=== PATIENT | male | born 1995 | race Caucasian/White ===

== ENCOUNTER 2017-06-18 15:14 | Emergency (ER) | payer SELFPAY ==
[2017-06-18] MEDS ORDERED: IBUPROFEN 200 MG TAB PO ONE (17:25)
[2017-06-18] MEDS ORDERED: HYDROCODONE/APAP 7.5/325 MG TAB ONE (17:26)
[2017-06-18 18:21] LABS: Urine Blood NEGATIVE (NEG); Urine Glucose NEGATIVE (NEG); Urine Protein TRACE (NEG); Urine Specific Gravity 1.025 (1.005-1.030)
--- NOTE | 2017-06-18 18:21 | EDPHYS ---
Physician Documentation [facility] Name: He Schmitz Age: 22 yrs Sex: Male : 1995 Arrival Date: 06/18/2017 Time: 15:17 Bed 10 Private MD: ED Physician Lonnie Morris HPI: 06/18 17:22 This 22 yrs old Male presents to ER via Ambulatory with complaints of Back wendy Injury. 17:22 This 22 yrs old Male presents to ER via Ambulatory with complaints of Back wendy Injury. 17:22 This 22 yrs old Male presents to ER via Ambulatory with complaints of Back wendy Injury. 17:22 The patient presents with pain that is acute. The symptoms are located in the low back. wendy Onset: The symptoms/episode began/occurred suddenly. The pain does not radiate. Associated signs and symptoms: The patient has no apparent associated signs or symptoms. The problem was sustained when bending over. Modifying factors: The patient symptoms are alleviated by nothing, the patient symptoms are aggravated by any movement, bending. Severity of symptoms: At their worst the symptoms were mild, moderate, in the emergency department the symptoms are unchanged. Historical: - Allergies: 15:29 No Known Allergies; aj - Home Meds: 15:29 None [Active]; aj - PMHx: 15:29 None; aj - PSHx: 15:29 None; aj - Immunization history:: Adult Immunizations up to date. - Social history:: Smoking status: Patient/guardian denies using tobacco. - Family history:: not pertinent. ROS: 17:22 Constitutional: Negative for fever, chills, and weight loss, Eyes: Negative for injury, wendy pain, redness, and discharge, ENT: Negative for injury, pain, and discharge, Neck: Negative for injury, pain, and swelling, Cardiovascular: Negative for chest pain, palpitations, and edema, Respiratory: Negative for shortness of breath, cough, wheezing, and pleuritic chest pain, Abdomen/GI: Negative for abdominal pain, nausea, vomiting, diarrhea, and constipation, : Negative for injury, bleeding, discharge, and swelling, MS/Extremity: Negative for injury and deformity, Skin: Negative for injury, rash, and discoloration, Neuro: Negative for headache, weakness, numbness, tingling, and seizure, Psych: Negative for depression, anxiety, suicide ideation, homicidal ideation, and hallucinations, Allergy/Immunology: Negative for hives, rash, and allergies, Endocrine: Negative for neck swelling, polydipsia, polyuria, polyphagia, and marked weight changes, Hematologic/Lymphatic: Negative for swollen nodes, abnormal bleeding, and unusual bruising. 17:22 Back: Positive for decreased range of motion, pain at rest, pain with movement, of the lumbar area. Exam: 17:22 Constitutional: This is a well developed, well nourished patient who is awake, alert, wendy and in no acute distress. Head/Face: Normocephalic, atraumatic. Eyes: Pupils equal round and reactive to light, extra-ocular motions intact. Lids and lashes normal. Conjunctiva and sclera are non-icteric and not injected. Cornea within normal limits. Periorbital areas with no swelling, redness, or edema. ENT: Nares patent. No nasal discharge, no septal abnormalities noted. Tympanic membranes are normal and external auditory canals are clear. Oropharynx with no redness, swelling, or masses, exudates, or evidence of obstruction, uvula midline. Mucous membranes moist. Neck: Trachea midline, no thyromegaly or masses palpated, and no cervical lymphadenopathy. Supple, full range of motion without nuchal rigidity, or vertebral point tenderness. No Meningismus. Chest/axilla: Normal chest wall appearance and motion. Nontender with no deformity. No lesions are appreciated. Cardiovascular: Regular rate and rhythm with a normal S1 and S2. No gallops, murmurs, or rubs. Normal PMI, no JVD. No pulse deficits. Respiratory: Lungs have equal breath sounds bilaterally, clear to auscultation and percussion. No rales, rhonchi or wheezes noted. No increased work of breathing, no retractions or nasal flaring. Abdomen/GI: Soft, non-tender, with normal bowel sounds. No distension or tympany. No guarding or rebound. No evidence of tenderness throughout. Male : Normal genitalia with no discharge or lesions. Skin: Warm, dry with normal turgor. Normal color with no rashes, no lesions, and no evidence of cellulitis. MS/ Extremity: Pulses equal, no cyanosis. Neurovascular intact. Full, normal range of motion. Neuro: Awake and alert, GCS 15, oriented to person, place, time, and situation. Cranial nerves II-XII grossly intact. Motor strength 5/5 in all extremities. Sensory grossly intact. Cerebellar exam normal. Normal gait. Psych: Awake, alert, with orientation to person, place and time. Behavior, mood, and affect are within normal limits. 17:22 Back: pain, ROM is painful, normal spinal alignment noted, CVA tenderness, is absent, muscle spasm, is not present. Vital Signs: 15:29 BP 121 / 85; Pulse 85; Resp 17; Temp 98.3; Pulse Ox 98% on R/A; Weight 114.76 kg; aj Height 6 ft. 2 in. (187.96 cm); Pain 3/10; 18:25 BP 127 / 72; Pulse 70; Resp 16; Pulse Ox 97% ; Pain 2/10; mb3 15:29 Body Mass Index 32.48 (114.76 kg, 187.96 cm) aj MDM: 16:44 Patient medically screened. [facility] 17:25 Data reviewed: vital signs, nurses notes, lab test result(s), radiologic studies, plain [facility] films. 06/18 18:20 Order name: Urine Dipstick--Ancillary (enter results) 06/18 17:22 Order name: Lumbar Spine (3 Views) XRAY [facility] 06/18 17:22 Order name: Urine Dipstick-Ancillary (obtain specimen); Complete Time: 18:21 [facility] Administered Medications: 17:25 Drug: Motrin 600 mg Route: PO; mb3 18:21 Follow up: Response: No adverse reaction; Pain is decreased mb3 17:25 Drug: [place] (7.5 mg-325 mg) 1 tabs Route: PO; mb3 18:18 Follow up: Response: No adverse reaction; Pain is decreased mb3 Disposition: 06/18/17 18:11 Discharged to Home. Impression: Low back pain - l5 _s1 pars defect. - Condition is Stable. - Discharge Instructions: Back Pain, Adult, Musculoskeletal Pain, Back Injury Prevention, Jrcn-is-Icro, Back Pain, Adult, [id number]. - Prescriptions for Ibuprofen 600 mg Oral Tablet - take 1 tablet by ORAL route every 8 hours As needed take with food; 21 tablet. Tylenol- Codeine #3 300-30 mg Oral Tablet - take 2 tablet by ORAL route every 6 hours As needed; 30 tablet. Skelaxin 800 mg Oral Tablet - take 1 tablet by ORAL route every 6 hours As needed; 20 tablet. - Medication Reconciliation Form, Thank You Letter, Antibiotic Education, Prescription Opioid Use form. - Follow up: Private Physician; When: 2 - 3 days; Reason: Recheck today's complaints, Continuance of care, Re-evaluation by your physician. Follow up: Dylon Hawthorne MD; When: 2 - 3 days; Reason: Recheck today's complaints, Re-evaluation by your physician. - Problem is new. - Symptoms have improved. Signatures: Dispatcher [employer] EDChristy Whelan RN RN aj Anderson, Corey, MD MD cha Barnett, Mark, RN RN mb3 Corrections: (The following items were deleted from the chart) 18:12 18:11 06/18/2017 18:11 Discharged to Home. Impression: Low back pain - l5 _s1 pars wendy defect. Condition is Stable. Discharge Instructions: Back Pain, Adult, Musculoskeletal Pain, Back Injury Prevention, Vsxz-cn-Ilfz, Back Pain, Adult, Vnji-mu-Jbjw. Prescriptions for Ibuprofen 600 mg Oral Tablet - take 1 tablet by ORAL route every 8 hours As needed take with food; 21 tablet, Tylenol-Codeine #3 300-30 mg Oral Tablet - take 2 tablet by ORAL route every 6 hours As needed; 30 tablet, Skelaxin 800 mg Oral Tablet - take 1 tablet by ORAL route every 6 hours As needed; 20 tablet. and Forms are Medication Reconciliation Form, Thank You Letter, Antibiotic Education, Prescription Opioid Use. Follow up: Private Physician; When: 2 - 3 days; Reason: Recheck today's complaints, Continuance of care, Re-evaluation by your physician. Problem is new. Symptoms have improved. wendy 18:25 18:12 06/18/2017 18:11 Discharged to Home. Impression: Low back pain - l5 _s1 pars mb3 defect. Condition is Stable. Discharge Instructions: Back Pain, Adult, Musculoskeletal Pain, Back Injury Prevention, Kqax-da-Xebt, Back Pain, Adult, Pxfg-re-Bmzh. Prescriptions for Ibuprofen 600 mg Oral Tablet - take 1 tablet by ORAL route every 8 hours As needed take with food; 21 tablet, Tylenol-Codeine #3 300-30 mg Oral Tablet - take 2 tablet by ORAL route every 6 hours As needed; 30 tablet, Skelaxin 800 mg Oral Tablet - take 1 tablet by ORAL route every 6 hours As needed; 20 tablet. and Forms are Medication Reconciliation Form, Thank You Letter, Antibiotic Education, Prescription Opioid Use. Follow up: Private Physician; When: 2 - 3 days; Reason: Recheck today's complaints, Continuance of care, Re-evaluation by your physician. Follow up: Dylon Hawthorne; When: 2 - 3 days; Reason: Recheck today's complaints, Re-evaluation by your physician. Problem is new. Symptoms have improved. wendy
--- NOTE | 2017-06-18 18:21 | ER ---
Nurse's Notes [facility] Name: He Schmitz Age: 22 yrs Sex: Male : 1995 Arrival Date: 06/18/2017 Time: 15:17 Bed 10 Private MD: Diagnosis: Low back pain-l5 _s1 pars defect Presentation: 06/18 15:27 Presenting complaint: Patient states: Pain to low back that started today while patient aj was cleaning a table. Ambulated with steady gait to triage. Transition of care: patient was not received from another setting of care. Onset of symptoms was June 18, 2017. Initial Sepsis Screen: Does the patient meet any 2 criteria? No. Patient's initial sepsis screen is negative. Does the patient have a suspected source of infection? No. Patient's initial sepsis screen is negative. Care prior to arrival: None. 15:27 Method Of Arrival: Ambulatory 15:27 Acuity: NICOLE 4 aj Triage Assessment: 15:29 General: Appears in no apparent distress. uncomfortable, Behavior is calm, cooperative, aj appropriate for age. Pain: Complains of pain in low back area Pain currently is 3 out of 10 on a pain scale. Neuro: Level of Consciousness is awake, alert, obeys commands, Oriented to person, place, time, situation, Appropriate for age. Respiratory: Airway is patent Respiratory effort is even, unlabored, Respiratory pattern is regular, symmetrical. Derm: Skin is intact, is healthy with good turgor, Skin is pink, warm \T\ dry. normal. Historical: - Allergies: 15:29 No Known Allergies; - Home Meds: 15:29 None [Active]; - PMHx: 15:29 None; - PSHx: 15:29 None; aj - Immunization history:: Adult Immunizations up to date. - Social history:: Smoking status: Patient/guardian denies using tobacco. - Family history:: not pertinent. Screenin:23 Abuse screen: Denies threats or abuse. Nutritional screening: No deficits noted. mb3 Tuberculosis screening: No symptoms or risk factors identified. Fall Risk None identified. Assessment: 18:22 General: Appears in no apparent distress. comfortable, Behavior is calm, cooperative, mb3 appropriate for age. Pain: Complains of pain in lumbar area Pain does not radiate. Pain: Pain currently is 4 out of 10 on a pain scale. Neuro: No deficits noted. Cardiovascular: No deficits noted. Respiratory: No deficits noted. GI: No signs and/or symptoms were reported involving the gastrointestinal system. : No signs and/or symptoms were reported regarding the genitourinary system. EENT: No signs and/or symptoms were reported regarding the EENT system. Vital Signs: 15:29 BP 121 / 85; Pulse 85; Resp 17; Temp 98.3; Pulse Ox 98% on R/A; Weight 114.76 kg; aj Height 6 ft. 2 in. (187.96 cm); Pain 3/10; 18:25 BP 127 / 72; Pulse 70; Resp 16; Pulse Ox 97% ; Pain 2/10; mb3 15:29 Body Mass Index 32.48 (114.76 kg, 187.96 cm) aj ED Course: 15:17 Patient arrived in ED. rg4 15:29 Triage completed. aj 15:29 Arm band placed on left wrist. Patient placed in waiting room, Patient notified of wait aj time. 16:44 Lonnie Morris MD is Attending Physician. [facility] 17:22 Greg Peck, LUIS CARLOS is Primary Nurse. mb3 17:41 Patient moved to radiology via wheelchair. ag1 17:42 X-ray completed. Patient tolerated procedure well. ag1 17:43 Lumbar Spine (3 Views) XRAY In Process Unspecified. EDMS 18:12 Dylon Hawthorne MD is Referral Physician. wendy 18:21 Urine Dipstick--Ancillary (enter results) Sent. mb3 18:23 Patient has correct armband on for positive identification. Call light in reach. mb3 18:24 No provider procedures requiring assistance completed. Patient did not have IV access mb3 during this emergency room visit. Administered Medications: 17:25 Drug: Motrin 600 mg Route: PO; mb3 18:21 Follow up: Response: No adverse reaction; Pain is decreased mb3 17:25 Drug: [place] (7.5 mg-325 mg) 1 tabs Route: PO; mb3 18:18 Follow up: Response: No adverse reaction; Pain is decreased mb3 Outcome: 18:11 Discharge ordered by . wendy 18:24 Discharged to home ambulatory. mb3 18:24 Condition: stable 18:24 Discharge instructions given to patient, Instructed on discharge instructions, follow up and referral plans. medication usage, Demonstrated understanding of instructions, follow-up care, medications, Prescriptions given X 3. 18:25 Patient left the ED. mb3 Signatures: Dispatcher [employer] Christy Barrett, Lonnie Harrell RN, MD MD cha Gallaway, Ashley ag1 Gisselle Posada rg4 Greg Peck RN RN mb3
--- NOTE | 2017-06-18 19:51 | RAD REPORT ---
EXAM DESCRIPTION: RAD - Lumbar Spine 3 Views - 06/18/2017 5:48 pm CLINICAL HISTORY: Back pain FINDINGS: Mild anterior subluxation of L5 on S1 is seen. Spondylosis is suspected at L5 . No acute fracture is seen
== END 2017-06-18 18:25 | disposition home or self-care (01) ==
LOC: ER 15:14
DX: M54.5 Low back pain (principal); M43.07 Spondylolysis, lumbosacral region
CPT/HCPCS: 72100; 81003; 99284

== ENCOUNTER 2017-09-30 23:23 | Emergency (ER) | payer SELFPAY ==
[2017-10-01 01:49] LABS: Absolute Lymphocytes (CBC) 2.6 K/uL (0.7-4.9); Absolute Monocytes 0.8 K/uL (0.1-1.3); Absolute Neutrophil 5.7 K/uL (1.8-8.0); Basophils % 0.4 % (0-1.3); Hematocrit 42.9 % (39.6-49.0); Lymphocytes % 28.1 % (15.3-44.8); MCH 27.9 pg (27.0-35.0); MCV 83.2 fL (80-100); MPV 9.7 fL (7.6-11.3); Monocytes % 8.9 % (3.3-12.3); RBC Red Blood Cell Count 5.16 M/uL (4.33-5.43)
[2017-10-01 01:56] LABS: BUN Blood Urea Nitrogen 19 mg/dL (7-18); Bicarbonate 31 mmol/L (21-32); Glucose Level 94 mg/dL (74-106); Potassium 3.7 mmol/L (3.5-5.1); Sodium Level 140 mmol/L (136-145)
--- NOTE | 2017-10-01 02:14 | EDPHYS ---
Physician Documentation [facility] Name: He Schmitz Age: 22 yrs Sex: Male : 1995 Arrival Date: 09/30/2017 Time: 23:24 Bed 13 Private MD: ED Physician Bolivar Hernandez HPI: 10/01 02:01 This 22 yrs old Male presents to ER via Ambulatory with complaints of gs Numbness - Tongue. 02:05 The patient's problem is reported as paresthesias, tongue. Onset: The symptoms/episode gs began/occurred yesterday, at 09:00. Duration: The episodes are intermittent. The symptoms are alleviated by nothing. The symptoms are aggravated by nothing. Associated signs and symptoms: Pertinent negatives: agitation, ataxia, ams. Severity of symptoms: At their worst the symptoms were moderate in the emergency department the symptoms have improved moderately. The patient has not experienced similar symptoms in the past. Historical: - Allergies: 00:00 No Known Allergies; aa1 - Home Meds: 00:00 None [Active]; aa1 - PMHx: 00:00 Anxiety; aa1 00:01 Gout; aa1 - PSHx: 00:00 None; aa1 - Immunization history:: Adult Immunizations up to date. - Social history:: Smoking status: Patient/guardian denies using tobacco. - Ebola Screening: : No symptoms or risks identified at this time. ROS: 02:05 All other systems are negative. gs Exam: 02:05 Radiologist reports: neg gs 02:05 Head/Face: Normocephalic, atraumatic. Eyes: Pupils equal round and reactive to light, extra-ocular motions intact. Lids and lashes normal. Conjunctiva and sclera are non-icteric and not injected. Cornea within normal limits. Periorbital areas with no swelling, redness, or edema. ENT: Nares patent. No nasal discharge, no septal abnormalities noted. Tympanic membranes are normal and external auditory canals are clear. Oropharynx with no redness, swelling, or masses, exudates, or evidence of obstruction, uvula midline. Mucous membranes moist. Neck: Trachea midline, no thyromegaly or masses palpated, and no cervical lymphadenopathy. Supple, full range of motion without nuchal rigidity, or vertebral point tenderness. No Meningismus. Chest/axilla: Normal chest wall appearance and motion. Nontender with no deformity. No lesions are appreciated. Cardiovascular: Regular rate and rhythm with a normal S1 and S2. No gallops, murmurs, or rubs. Normal PMI, no JVD. No pulse deficits. Respiratory: Lungs have equal breath sounds bilaterally, clear to auscultation and percussion. No rales, rhonchi or wheezes noted. No increased work of breathing, no retractions or nasal flaring. Abdomen/GI: Soft, non-tender, with normal bowel sounds. No distension or tympany. No guarding or rebound. No evidence of tenderness throughout. Back: No spinal tenderness. No costovertebral tenderness. Full range of motion. Skin: Warm, dry with normal turgor. Normal color with no rashes, no lesions, and no evidence of cellulitis. MS/ Extremity: Pulses equal, no cyanosis. Neurovascular intact. Full, normal range of motion. 02:05 Neuro: Orientation: is normal, Mentation: is normal, Memory: is normal, Cranial nerves: CN II- XII are normal as tested, Cerebellar function: normal finger to nose testing, Motor: strength is normal, Sensation: no obvious gross deficits, pin prick testing is normal. Vital Signs: 09/30 23:31 BP 123 / 85; Pulse 72; Resp 18; Temp 98.1; Pulse Ox 98% on R/A; Weight 118.39 kg; aa1 Height 6 ft. 2 in. (187.96 cm); Pain 0/10; 10/01 00:30 BP 111 / 74; Pulse 79; Resp 16; Pulse Ox 97% on R/A; Pain 0/10; aa1 01:47 BP 109 / 70; Pulse 55; Resp 16; Pulse Ox 98% on R/A; Pain 0/10; aa1 02:32 BP 116 / 73; Pulse 60; Resp 16; Pulse Ox 98% on R/A; Pain 0/10; aa1 09/30 23:31 Body Mass Index 33.51 (118.39 kg, 187.96 cm) aa1 NIH Stroke Scale Scores: 02:05 NIHSS Score: 0 MDM: 00:18 Patient medically screened. 02:05 Differential diagnosis: CVA, TIA, metabolic disorder, drug effects. Data reviewed: vital signs, nurses notes. Response to treatment: the patient's symptoms have markedly improved after treatment. ED course: pt has subjective paresthesia to right side of tongue. emphasized reasons to see neurology heidy. gave option for transfer to pt and mom or follow up with dr melendrez. they do no want to be transferred. 10/01 00:19 Order name: CBC with Diff; Complete Time: 02:27 10/01 00:19 Order name: Basic Metabolic Panel; Complete Time: 02:04 10/01 00:19 Order name: CT Head Brain wo Cont gs Administered Medications: No medications were administered Disposition: 10/01/17 02:13 Discharged to Home. Impression: Other symptoms and signs involving general sensations and perceptions. - Condition is Stable. - Discharge Instructions: Paresthesia. - Medication Reconciliation Form, Thank You Letter, Antibiotic Education, Prescription Opioid Use form. - Follow up: Luis Melendrez MD; When: 1 - 2 days; Reason: Re-evaluation by your physician. NIH Stroke Scale - NIH Stroke Score Date: 10/01/2017 Time: 02:05 Total Score = 0 1a. Level of Consciousness (LOC) - 0(Alert) 1b. Level of Consciousness (LOC) (Year \T\ Age) - 0(Both) 1c. LOC Commands (Open \T\ Closes Eyes/Human Geography Instructor) - 0(Both) 2. Best Gaze (Lateral Gaze Paresis) - 0(Normal) 3. Visual Field Loss - 0(No visual loss) 4. Facial Palsy - 0(Normal) 5a. Left Arm: Motor (10-second hold) - 0(No drift) 5b. Right Arm: Motor (10-second hold) - 0(No drift) 6a. Left Leg: Motor (5-second hold - always test supine) - 0(No drift) 6b. Right Leg: Motor (5-second hold - always test supine) - 0(No drift) 7. Limb Ataxia (finger/nose \T\ heel/patel - test with eyes open) - 0(Absent) 8. Sensory Loss (pinprick arms/legs/face) - 0(Normal) 9. Best Language: Aphasia (description/naming/reading) - 0(No aphasia) 10. Dysarthria (speech clarity - read or repeat words) - 0(Normal) 11. Extinction and Inattention (visual/tactile/auditory/spatial/personal) - 0(No abnormality) Initials: Signatures: Dispatcher [employer] EDDrea Mares RN RN aa1 Bolivar Hernandez MD MD gs Corrections: (The following items were deleted from the chart) 02:35 02:13 10/01/2017 02:13 Discharged to Home. Impression: Other symptoms and signs aa1 involving general sensations and perceptions. Condition is Stable. Forms are Medication Reconciliation Form, Thank You Letter, Antibiotic Education, Prescription Opioid Use. Follow up: Luis Melendrez; When: 1 - 2 days; Reason: Re-evaluation by your physician. gs
--- NOTE | 2017-10-01 02:14 | ER ---
Nurse's Notes [facility] Name: He Schmitz Age: 22 yrs Sex: Male : 1995 Arrival Date: 09/30/2017 Time: 23:24 Bed 13 Private MD: Diagnosis: Other symptoms and signs involving general sensations and perceptions Presentation: 09/30 23:57 Presenting complaint: Patient states: for the past couple of months he has been having aa1 a dull pain in his feet and then this afternoon he started to feel like the R side of his tongue was numb and his lips felt strange. No neurological deficits noted. Speech is clear and face symmetrical. Transition of care: patient was not received from another setting of care. Onset of symptoms was August 2017. Risk Assessment: Do you want to hurt yourself or someone else? Patient reports no desire to harm self or others. Initial Sepsis Screen: Does the patient meet any 2 criteria? No. Patient's initial sepsis screen is negative. Does the patient have a suspected source of infection? No. Patient's initial sepsis screen is negative. Care prior to arrival: None. 23:57 Method Of Arrival: Ambulatory aa1 23:57 Acuity: NICOLE 3 aa1 Historical: - Allergies: 10/01 00:00 No Known Allergies; aa1 - Home Meds: 00:00 None [Active]; aa1 - PMHx: 00:00 Anxiety; aa1 00:01 Gout; aa1 - PSHx: 00:00 None; aa1 - Immunization history:: Adult Immunizations up to date. - Social history:: Smoking status: Patient/guardian denies using tobacco. - Ebola Screening: : No symptoms or risks identified at this time. Screenin/23 23:35 Abuse screen: Denies threats or abuse. Denies injuries from another. Nutritional aa1 screening: No deficits noted. Tuberculosis screening: No symptoms or risk factors identified. Fall Risk None identified. Assessment: 23:35 General: Appears in no apparent distress. comfortable, Behavior is calm, cooperative, aa1 appropriate for age. Pain: Complains of pain in right foot and left foot Pain currently is 0 out of 10 on a pain scale. Quality of pain is described as dull, Pain began a couple months ago Is intermittent. Neuro: Level of Consciousness is awake, alert, obeys commands, Oriented to person, place, time, situation, Moves all extremities. Full function Gait is steady, Speech is normal, Facial symmetry appears normal, Pupils are PERRLA, Reports numbness in tongue Denies blurred vision dizziness, difficulty swallowing, headache diplopia. Cardiovascular: Denies chest pain, palpitations. Respiratory: Airway is patent Respiratory effort is even, unlabored, Respiratory pattern is regular, symmetrical. GI: No signs and/or symptoms were reported involving the gastrointestinal system. : No signs and/or symptoms were reported regarding the genitourinary system. EENT: No signs and/or symptoms were reported regarding the EENT system. Derm: Skin is intact, is healthy with good turgor, Skin is pink, warm \T\ dry. Musculoskeletal: Circulation, motion, and sensation intact. Capillary refill < 3 seconds. 10/01 00:10 Reassessment: Patient appears in no apparent distress at this time. Patient and/or aa1 family updated on plan of care and expected duration. Pain level reassessed. Patient is alert, oriented x 3, equal unlabored respirations, skin warm/dry/pink. Pt still awaiting initial assessment from provider. 01:10 Reassessment: Patient appears in no apparent distress at this time. Patient and/or aa1 family updated on plan of care and expected duration. Pain level reassessed. Patient is alert, oriented x 3, equal unlabored respirations, skin warm/dry/pink. Labs sent, awaiting results. 02:32 Reassessment: Patient appears in no apparent distress at this time. Patient is alert, aa1 oriented x 3, equal unlabored respirations, skin warm/dry/pink. Discussed d/c \T\ f/u instructions with pt \T\ mother; denies questions or concerns at this time Patient states feeling better. Vital Signs: 09/30 23:31 BP 123 / 85; Pulse 72; Resp 18; Temp 98.1; Pulse Ox 98% on R/A; Weight 118.39 kg; aa1 Height 6 ft. 2 in. (187.96 cm); Pain 0/10; 10/01 00:30 BP 111 / 74; Pulse 79; Resp 16; Pulse Ox 97% on R/A; Pain 0/10; aa1 01:47 BP 109 / 70; Pulse 55; Resp 16; Pulse Ox 98% on R/A; Pain 0/10; aa1 02:32 BP 116 / 73; Pulse 60; Resp 16; Pulse Ox 98% on R/A; Pain 0/10; aa1 09/30 23:31 Body Mass Index 33.51 (118.39 kg, 187.96 cm) aa1 NIH Stroke Scale Scores: 02:05 NIHSS Score: 0 ED Course: 09/30 23:24 Patient arrived in ED. ds1 23:31 Arm band placed on right wrist. Patient placed in an exam room, on a stretcher. aa1 23:35 Patient has correct armband on for positive identification. Bed in low position. Call aa1 light in reach. Pulse ox on. NIBP on. 23:46 Bolivar Hernandez MD is Attending Physician. gs 23:57 Drea Livingston, LUIS CARLOS is Primary Nurse. aa1 10/01 00:00 Triage completed. aa1 00:[address] via wheelchair. kw1 00:59 CT completed. Patient tolerated procedure well. Patient moved back from CT. kw1 00:59 CT Head Brain wo Cont In Process Unspecified. EDMS 01:10 Initial lab(s) drawn, by mo, sent to lab. aa1 02:12 Luis Rivera MD is Referral Physician. gs 02:35 No provider procedures requiring assistance completed. Patient did not have IV access aa1 during this emergency room visit. Administered Medications: No medications were administered Outcome: 02:13 Discharge ordered by . gs 02:35 Discharged to home ambulatory, with family. aa1 02:35 Condition: good 02:35 Discharge instructions given to patient, family, Instructed on discharge instructions, follow up and referral plans. Demonstrated understanding of instructions, follow-up care. 02:35 Patient left the ED. aa1 NIH Stroke Scale - NIH Stroke Score Date: 10/01/2017 Time: 02:05 Total Score = 0 1a. Level of Consciousness (LOC) - 0(Alert) 1b. Level of Consciousness (LOC) (Year \T\ Age) - 0(Both) 1c. LOC Commands (Open \T\ Closes Eyes/Steel Barrel Reamer) - 0(Both) 2. Best Gaze (Lateral Gaze Paresis) - 0(Normal) 3. Visual Field Loss - 0(No visual loss) 4. Facial Palsy - 0(Normal) 5a. Left Arm: Motor (10-second hold) - 0(No drift) 5b. Right Arm: Motor (10-second hold) - 0(No drift) 6a. Left Leg: Motor (5-second hold - always test supine) - 0(No drift) 6b. Right Leg: Motor (5-second hold - always test supine) - 0(No drift) 7. Limb Ataxia (finger/nose \T\ heel/patel - test with eyes open) - 0(Absent) 8. Sensory Loss (pinprick arms/legs/face) - 0(Normal) 9. Best Language: Aphasia (description/naming/reading) - 0(No aphasia) 10. Dysarthria (speech clarity - read or repeat words) - 0(Normal) 11. Extinction and Inattention (visual/tactile/auditory/spatial/personal) - 0(No abnormality) Initials: Signatures: Dispatcher [employer] Drea Gross RN RN aa1 Yulia Glez ds1 Bolivar Hernandez MD MD gs Wilhelm, Kimberly kw1 Corrections: (The following items were deleted from the chart) 01:46 00:30 Reassessment: Patient appears in no apparent distress at this time. aa1 Patient and/or family updated on plan of care and expected duration. Pain level reassessed. Patient is alert, oriented x 3, equal unlabored respirations, skin warm/dry/pink. Pt still awaiting initial assessment from provider aa1
--- NOTE | 2017-10-01 09:08 | RAD REPORT ---
EXAM DESCRIPTION: CT - Head Brain Wo Cont - 10/01/2017 5:01 am CLINICAL HISTORY: Right-sided numbness COMPARISON: None. TECHNIQUE: Computed axial tomography of the head was obtained. IV contrast was not requested. A preliminary report was generated by [employer] and reviewed prior to this dictation All CT scans are performed using dose optimization technique as appropriate and may include automated exposure control or mA/KV adjustment according to patient size. FINDINGS: An intracranial bleed is not seen . The ventricles are normal in caliber. No extra-axial fluid collection is noted. Fluid within the sinuses/ mastoids is not seen. IMPRESSION: No acute intracranial abnormality is seen. If patient's symptoms persist MRI of the bra in would be recommended.
== END 2017-10-01 02:35 | disposition home or self-care (01) ==
LOC: ER 23:23
DX: R44.9 Unspecified symptoms and signs involving general sensations and perceptions (principal)
CPT/HCPCS: 36415; 70450; 80048; 85025; 99284

== ENCOUNTER 2018-03-04 00:02 | Emergency (ER) | payer SELFPAY ==
[2018-03-04] MEDS ORDERED: IBUPROFEN 400 MG TAB ONE (01:01)
[2018-03-04] MEDS ORDERED: MECLIZINE HCL 12.5 MG TAB ONE (01:01)
[2018-03-04] MEDS ORDERED: IBUPROFEN 200 MG TAB PO ONE (01:01)
--- NOTE | 2018-03-04 03:45 | EDPHYS ---
Physician Documentation [facility] Name: He Schmitz Age: 22 yrs Sex: Male : 1995 Arrival Date: 03/04/2018 Time: 00:05 Bed 18 Private MD: ED Physician Lonnie Morris HPI: 03/04 00:22 This 22 yrs old Male presents to ER via Ambulatory with complaints of wendy Dizziness. 00:22 The patient presents with dizziness. Onset: The symptoms/episode began/occurred just wendy prior to arrival. Context: occurred at home. Modifying factors: The symptoms are alleviated by nothing, the symptoms are aggravated by nothing. Associated signs and symptoms: The patient has no apparent associated signs or symptoms. Severity of symptoms: At their worst the symptoms were mild in the emergency department the symptoms are unchanged. Patient's baseline: Neuro: alert and fully oriented, Motor: no deficits, Ambulation: walks without assistance, Speech: normal. The patient has not experienced similar symptoms in the past. Historical: - Allergies: 00:21 No Known Allergies; ao - Home Meds: 00:21 None [Active]; ao - PMHx: 00:21 Anxiety; Gout; ao - PSHx: 00:21 None; ao - Immunization history:: Adult Immunizations up to date. - Social history:: Smoking status: Patient/guardian denies using tobacco, Patient/guardian denies using alcohol, street drugs, IV drugs. - Ebola Screening: : Patient negative for fever greater than or equal to 101.5 degrees Fahrenheit, and additional compatible Ebola Virus Disease symptoms Patient denies exposure to infectious person Patient denies travel to an Ebola-affected area in the 21 days before illness onset. - Family history:: not pertinent. ROS: 00:22 Constitutional: Negative for fever, chills, and weight loss, Eyes: Negative for injury, wendy pain, redness, and discharge, ENT: Negative for injury, pain, and discharge, Neck: Negative for injury, pain, and swelling, Cardiovascular: Negative for chest pain, palpitations, and edema, Respiratory: Negative for shortness of breath, cough, wheezing, and pleuritic chest pain, Abdomen/GI: Negative for abdominal pain, nausea, vomiting, diarrhea, and constipation, Back: Negative for injury and pain, : Negative for injury, bleeding, discharge, and swelling, MS/Extremity: Negative for injury and deformity, Skin: Negative for injury, rash, and discoloration, Psych: Negative for depression, anxiety, suicide ideation, homicidal ideation, and hallucinations, Allergy/Immunology: Negative for hives, rash, and allergies, Endocrine: Negative for neck swelling, polydipsia, polyuria, polyphagia, and marked weight changes. 00:22 Neuro: Positive for headache. Exam: 00:22 Constitutional: This is a well developed, well nourished patient who is awake, alert, wendy and in no acute distress. Head/Face: Normocephalic, atraumatic. Eyes: Pupils equal round and reactive to light, extra-ocular motions intact. Lids and lashes normal. Conjunctiva and sclera are non-icteric and not injected. Cornea within normal limits. Periorbital areas with no swelling, redness, or edema. ENT: Nares patent. No nasal discharge, no septal abnormalities noted. Tympanic membranes are normal and external auditory canals are clear. Oropharynx with no redness, swelling, or masses, exudates, or evidence of obstruction, uvula midline. Mucous membranes moist. Neck: Trachea midline, no thyromegaly or masses palpated, and no cervical lymphadenopathy. Supple, full range of motion without nuchal rigidity, or vertebral point tenderness. No Meningismus. Chest/axilla: Normal chest wall appearance and motion. Nontender with no deformity. No lesions are appreciated. Cardiovascular: Regular rate and rhythm with a normal S1 and S2. No gallops, murmurs, or rubs. Normal PMI, no JVD. No pulse deficits. Respiratory: Lungs have equal breath sounds bilaterally, clear to auscultation and percussion. No rales, rhonchi or wheezes noted. No increased work of breathing, no retractions or nasal flaring. Abdomen/GI: Soft, non-tender, with normal bowel sounds. No distension or tympany. No guarding or rebound. No evidence of tenderness throughout. Back: No spinal tenderness. No costovertebral tenderness. Full range of motion. Male : Normal genitalia with no discharge or lesions. Skin: Warm, dry with normal turgor. Normal color with no rashes, no lesions, and no evidence of cellulitis. MS/ Extremity: Pulses equal, no cyanosis. Neurovascular intact. Full, normal range of motion. Neuro: Awake and alert, GCS 15, oriented to person, place, time, and situation. Cranial nerves II-XII grossly intact. Motor strength 5/5 in all extremities. Sensory grossly intact. Cerebellar exam normal. Normal gait. Psych: Awake, alert, with orientation to person, place and time. Behavior, mood, and affect are within normal limits. 00:22 Neck: ROM/movement: is normal, no acute changes, Meningeal signs: are not present, Kernig's sign is negative, Brudzinski's sign is negative. 00:47 Neck: ROM/movement: [facility] Vital Signs: 00:21 BP 128 / 91; Pulse 67; Resp 14; Temp 99.3(O); Pulse Ox 97% on R/A; Weight 113.4 kg (R); ao Height 6 ft. 2 in. (187.96 cm) (R); Pain 0/10; 01:44 BP 115 / 77; Pulse 71; Resp 16; Temp 98.2(O); Pulse Ox 100% ; Pain 0/10; ao 02:26 BP 119 / 75; Pulse 68; Resp 16 S; Pulse Ox 98% on R/A; cc3 03:30 BP 119 / 78; Pulse 66; Resp 18 S; Pulse Ox 97% on R/A; cc3 00:21 Body Mass Index 32.10 (113.40 kg, 187.96 cm) ao MDM: 00:11 Patient medically screened. [facility] 00:24 Data reviewed: vital signs, nurses notes. [facility] 03/04 00:22 Order name: CT Head Brain wo Cont [facility] Administered Medications: 00:56 Not Given (Patient Refused): Motrin 600 mg PO once ao 00:56 Not Given (Patient Refused): Meclizine 25 mg PO once ao Disposition: 03/04/18 03:44 Discharged to Home. Impression: Dizziness and giddiness. - Condition is Stable. - Discharge Instructions: Dizziness, Dizziness, [id number]. - Prescriptions for Meclizine 25 mg Oral Tablet - take 1 tablet by ORAL route every 8 hours As needed; 20 tablet. - Medication Reconciliation Form, Thank You Letter, Antibiotic Education, Prescription Opioid Use, Work release form form. - Follow up: Private Physician; When: 2 - 3 days; Reason: Recheck today's complaints, Continuance of care, Re-evaluation by your physician. Follow up: Luis Rivera; When: 2 - 3 days; Reason: Recheck today's complaints, Re-evaluation by your physician. - Problem is new. - Symptoms have improved. Signatures: Dispatcher [employer] EDLonnie Lujan MD MD cha Ortiz, Alex RN RN Ioana Smith cc3 Corrections: (The following items were deleted from the chart) 03:53 03:44 03/04/2018 03:44 Discharged to Home. Impression: Dizziness and giddiness. cc3 Condition is Stable. Discharge Instructions: Dizziness, Dizziness, [id number]. Prescriptions for Meclizine 25 mg Oral Tablet - take 1 tablet by ORAL route every 8 hours As needed; 20 tablet. and Forms are Medication Reconciliation Form, Thank You Letter, Antibiotic Education, Prescription Opioid Use. Follow up: Private Physician; When: 2 - 3 days; Reason: Recheck today's complaints, Continuance of care, Re-evaluation by your physician. Follow up: Luis Rivera; When: 2 - 3 days; Reason: Recheck today's complaints, Re-evaluation by your physician. Problem is new. Symptoms have improved. wendy
--- NOTE | 2018-03-04 03:45 | ER ---
Nurse's Notes [facility] Name: He Schmitz Age: 22 yrs Sex: Male : 1995 Arrival Date: 03/04/2018 Time: 00:05 Bed 18 Private MD: Diagnosis: Dizziness and giddiness Presentation: 03/04 00:17 Presenting complaint: Patient states: Patient describes feeling like "Statistic" in his ao head and a headache starting at 2100. Patient also reports he was dizzy for a while. Patient and mother denies nausea and vomiting. Transition of care: patient was not received from another setting of care. Onset of symptoms was March 03, 2018 at 21:00. Risk Assessment: Do you want to hurt yourself or someone else? Patient reports no desire to harm self or others. Initial Sepsis Screen: Does the patient meet any 2 criteria? No. Patient's initial sepsis screen is negative. Does the patient have a suspected source of infection? No. Patient's initial sepsis screen is negative. Care prior to arrival: None. 00:17 Method Of Arrival: Ambulatory ao 00:17 Acuity: NICOLE 3 ao Triage Assessment: 00:23 General: Appears in no apparent distress. comfortable, Behavior is calm, cooperative, ao appropriate for age. Pain: Denies pain. Historical: - Allergies: 00:21 No Known Allergies; ao - Home Meds: 00:21 None [Active]; ao - PMHx: 00:21 Anxiety; Gout; ao - PSHx: 00:21 None; ao - Immunization history:: Adult Immunizations up to date. - Social history:: Smoking status: Patient/guardian denies using tobacco, Patient/guardian denies using alcohol, street drugs, IV drugs. - Ebola Screening: : Patient negative for fever greater than or equal to 101.5 degrees Fahrenheit, and additional compatible Ebola Virus Disease symptoms Patient denies exposure to infectious person Patient denies travel to an Ebola-affected area in the 21 days before illness onset. - Family history:: not pertinent. Screenin:23 Abuse screen: Denies threats or abuse. Denies injuries from another. Nutritional ao screening: No deficits noted. Tuberculosis screening: No symptoms or risk factors identified. Fall Risk None identified. Assessment: 00:23 General: Appears in no apparent distress. comfortable, Behavior is calm, cooperative, ao appropriate for age. Pain: Denies pain. Neuro: No deficits noted. Level of Consciousness is awake, alert, Oriented to person, place, Moves all extremities. Full function Speech is normal, Facial symmetry appears normal. Cardiovascular: Heart tones S1 S2 Capillary refill < 3 seconds Patient's skin is warm and dry. Respiratory: Airway is patent Respiratory effort is even, unlabored, Respiratory pattern is regular, symmetrical. GI: Abdomen is obese. : No deficits noted. No signs and/or symptoms were reported regarding the genitourinary system. EENT: No signs and/or symptoms were reported regarding the EENT system. Derm: No signs and/or symptoms reported regarding the dermatologic system. Musculoskeletal: Circulation, motion, and sensation intact. Range of motion:. 01:45 Reassessment: Patient appears in no apparent distress at this time. Patient and/or ao family updated on plan of care and expected duration. Pain level reassessed. Waiting on CT report. 02:25 Reassessment: Patient appears in no apparent distress at this time. Patient and/or cc3 family updated on plan of care and expected duration. Pain level reassessed. 03:50 Reassessment: Patient appears in no apparent distress at this time. Patient and/or cc3 family updated on plan of care and expected duration. Pain level reassessed. Patient is alert, oriented x 3, equal unlabored respirations, skin warm/dry/pink. Dr. Morris discharged the patient home with prescription given. No IV cannula in situ. Patient left ER vitally stable and ambulatory with his mother. Vital Signs: 00:21 BP 128 / 91; Pulse 67; Resp 14; Temp 99.3(O); Pulse Ox 97% on R/A; Weight 113.4 kg (R); ao Height 6 ft. 2 in. (187.96 cm) (R); Pain 0/10; 01:44 BP 115 / 77; Pulse 71; Resp 16; Temp 98.2(O); Pulse Ox 100% ; Pain 0/10; ao 02:26 BP 119 / 75; Pulse 68; Resp 16 S; Pulse Ox 98% on R/A; cc3 03:30 BP 119 / 78; Pulse 66; Resp 18 S; Pulse Ox 97% on R/A; cc3 00:21 Body Mass Index 32.10 (113.40 kg, 187.96 cm) ao ED Course: 00:05 Patient arrived in ED. am2 00:08 Alessio Rodriguez, RN is Primary Nurse. ao 00:11 Lonnie Morris MD is Attending Physician. wendy 00:20 Triage completed. ao 00:22 Arm band placed on right wrist. Patient placed in an exam room, on a stretcher, on ao pulse oximetry, Patient notified of wait time. 00:23 Patient has correct armband on for positive identification. Pulse ox on. NIBP on. ao 01:26 CT completed. Patient tolerated procedure well. Patient moved to CT via wheelchair. Patient moved back from CT. 01:31 CT Head Brain wo Cont In Process Unspecified. EDMS 01:45 Report given to LUIS CARLOS Triplett. ao 03:44 Luis Rivera MD is Referral Physician. [facility] 03:50 No provider procedures requiring assistance completed. Patient did not have IV access cc3 during this emergency room visit. Administered Medications: 00:56 Not Given (Patient Refused): Motrin 600 mg PO once ao 00:56 Not Given (Patient Refused): Meclizine 25 mg PO once ao Outcome: 03:44 Discharge ordered by . wendy 03:50 Discharged to home ambulatory, with family. cc3 03:50 Condition: stable 03:50 Discharge instructions given to patient, family, Instructed on discharge instructions, follow up and referral plans. medication usage, Demonstrated understanding of instructions, follow-up care, medications, Prescriptions given X 1. 03:53 Patient left the ED. cc3 Signatures: Dispatcher [employer] EDOR Lonnie Morris MD MD cha Hagler, Ervin Alessio Rodriguez RN RN Christy Carter [facility] Ioana Mullen cc3 Corrections: (The following items were deleted from the chart) 00:23 00:17 Presenting complaint: Patient states: Patient describes feeling like "Statistic" ao in his head. Patient also reports he was dizzy for a while. Patient and mother denies nausea and vomiting. ao
--- NOTE | 2018-03-04 08:35 | RAD REPORT ---
EXAM DESCRIPTION: CT - Head Brain Wo Cont - 03/04/2018 3:53 am CLINICAL HISTORY: DIZZINESS Headache, drowsiness COMPARISON: Head Brain Wo Cont dated 10/01/2017 TECHNIQUE: All CT scans are performed using dose optimization technique as appropriate and may inclu de automated exposure control or mA/KV adjustment according to patient size. FINDINGS: No intracranial hemorrhage, hydrocephalus or extra-axial fluid collection.No areas of brai n edema or evidence of midline shift. The paranasal sinuses and mastoids are clear. The calvarium is intact. IMPRESSION: No acute intracranial abnormality.
== END 2018-03-04 03:53 | disposition home or self-care (01) ==
LOC: ER 00:02
DX: R42 Dizziness and giddiness (principal); R51 Headache
CPT/HCPCS: 70450; 99284

== ENCOUNTER 2018-09-14 02:27 | Emergency (ER) | payer SELFPAY ==
--- NOTE | 2018-09-14 04:38 | ER ---
Nurse's Notes [facility] Name: He Schmitz Age: 23 yrs Sex: Male : 1995 Arrival Date: 09/14/2018 Time: 02:29 Bed 6 Private MD: Diagnosis: Superficial injury of head Presentation: 09/14 02:30 Presenting complaint: Patient states: that he was walking and hit his left oriental orthodox on fc the door jaw. Denies any LOC or any nausea/vomiting. States that the pain is just getting worse. Transition of care: patient was not received from another setting of care. Onset of symptoms was September 13, 2018 at 12:00. Risk Assessment: Do you want to hurt yourself or someone else? Patient reports no desire to harm self or others. Initial Sepsis Screen: Does the patient meet any 2 criteria? No. Patient's initial sepsis screen is negative. Does the patient have a suspected source of infection? No. Patient's initial sepsis screen is negative. Care prior to arrival: None. 02:30 Method Of Arrival: Ambulatory 02:30 Acuity: NICOLE 3 Triage Assessment: 02:30 Headache History: Denies prior headaches. fc 03:23 Pain: Pain began Also complains of no other associated symptoms. ak1 03:23 General: Appears in no apparent distress. Behavior is calm, cooperative, appropriate ak1 for age. Pain: Pain currently is 4 out of 10 on a pain scale. Pain began. Historical: - Allergies: 03:23 No Known Allergies; ak1 - Home Meds: 03:23 None [Active]; ak1 - PMHx: 03:23 Anxiety; Gout; ak1 - PSHx: 03:23 None; ak1 - Immunization history:: Last tetanus immunization: up to date. - Social history:: Smoking status: Patient/guardian denies using tobacco, Patient/guardian denies using alcohol, street drugs. - Family history:: not pertinent. - Ebola Screening: : Patient negative for fever greater than or equal to 101.5 degrees Fahrenheit, and additional compatible Ebola Virus Disease symptoms Patient denies exposure to infectious person Patient denies travel to an Ebola-affected area in the 21 days before illness onset. - Hospitalizations: : No recent hospitalization is reported. Screenin:30 Abuse screen: Denies threats or abuse. Nutritional screening: No deficits noted. fc Tuberculosis screening: No symptoms or risk factors identified. Fall Risk None identified. Assessment: 02:48 General: Appears in no apparent distress. comfortable, Behavior is cooperative, quiet. ak1 Pain: Complains of pain in left oriental orthodox. Neuro: Level of Consciousness is awake, alert, obeys commands, Oriented to person, place, time, situation, Turner In are equal bilaterally Moves all extremities. Gait is steady, Speech is normal. Cardiovascular: No deficits noted. Respiratory: No deficits noted. GI: No signs and/or symptoms were reported involving the gastrointestinal system. : No signs and/or symptoms were reported regarding the genitourinary system. EENT: No signs and/or symptoms were reported regarding the EENT system. Derm: No signs and/or symptoms reported regarding the dermatologic system. Musculoskeletal: No signs and/or symptoms reported regarding the musculoskeletal system. 03:58 Reassessment: Patient appears in no apparent distress at this time. No changes from ak1 previously documented assessment. Patient and/or family updated on plan of care and expected duration. Pain level reassessed. Patient is alert, oriented x 3, equal unlabored respirations, skin warm/dry/pink. pt an family informed of wait for CT results. 04:44 Reassessment: Patient appears in no apparent distress at this time. No changes from ak1 previously documented assessment. Patient and/or family updated on plan of care and expected duration. Pain level reassessed. Patient is alert, oriented x 3, equal unlabored respirations, skin warm/dry/pink. Vital Signs: 02:30 BP 136 / 83; Pulse 58; Resp 18; Temp 98.3(O); Pulse Ox 100% on R/A; Weight 113.4 kg (R); Height 6 ft. 3 in. (190.50 cm) (R); Pain 4/10; 03:59 Pulse 49; Resp 16; Temp 98.2; Pulse Ox 99% on R/A; ak1 04:45 Pulse 75; Resp 16; Pulse Ox 99% on R/A; ak1 02:30 Body Mass Index 31.25 (113.40 kg, 190.50 cm) Maryam Coma Score: 04:36 Eye Response: spontaneous(4). Verbal Response: oriented(5). Motor Response: obeys rn commands(6). Total: 15. ED Course: 02:29 Patient arrived in ED. am2 02:30 Arm band placed on Patient placed in an exam room, on a stretcher. fc 02:30 Patient has correct armband on for positive identification. Bed in low position. Call light in reach. Side rails up X2. Pulse ox on. NIBP on. 02:30 No provider procedures requiring assistance completed. fc 02:36 Cruzito Vaca MD is Attending Physician. rn 02:44 Triage completed. fc 02:48 Beti Singh, RN is Primary Nurse. ak1 03:04 CT Head Brain wo Cont In Process Unspecified. EDMS 04:41 Patient did not have IV access during this emergency room visit. ak1 Administered Medications: No medications were administered Outcome: 03:23 Condition: stable ak1 04:37 Discharge ordered by . rn 04:44 Discharged to home ambulatory, with family. ak1 04:44 Discharge instructions given to patient, family, Instructed on discharge instructions, follow up and referral plans. Demonstrated understanding of instructions, follow-up care. 04:45 Patient left the ED. ak1 Signatures: Dispatcher [employer] EDPA Ynes Harris RN RN Cruzito Vaca MD MD rn Krenek, Amber, RN RN ak1 Christy Vora am2
--- NOTE | 2018-09-14 04:39 | EDPHYS ---
Physician Documentation [facility] Name: He Schmitz Age: 23 yrs Sex: Male : 1995 Arrival Date: 09/14/2018 Time: 02:29 Bed 6 Private MD: ED Physician Cruzito Vaca HPI: 09/14 02:40 This 23 yrs old Male presents to ER via Unassigned with complaints of rn forehead pain/injury, Headache. 02:40 The patient complains of pain to the left jainism. The patient describes the headache as rn aching. Onset: The symptoms/episode began/occurred today. Severity of symptoms: At its worst the pain was moderate, in the emergency department the pain is unchanged. Headache History: Denies prior headaches. The symptoms are alleviated by nothing. the symptoms are aggravated by nothing. The patient has not experienced similar symptoms in the past. Reports walked into door jam, around noon, progressive head pain and mild blurred vision. No focal neurological complaints. No vomiting. Not on blood thinners.. Historical: - Allergies: 03:23 No Known Allergies; ak1 - Home Meds: 03:23 None [Active]; ak1 - PMHx: 03:23 Anxiety; Gout; ak1 - PSHx: 03:23 None; ak1 - Immunization history:: Last tetanus immunization: up to date. - Social history:: Smoking status: Patient/guardian denies using tobacco, Patient/guardian denies using alcohol, street drugs. - Family history:: not pertinent. - Ebola Screening: : Patient negative for fever greater than or equal to 101.5 degrees Fahrenheit, and additional compatible Ebola Virus Disease symptoms Patient denies exposure to infectious person Patient denies travel to an Ebola-affected area in the 21 days before illness onset. - Hospitalizations: : No recent hospitalization is reported. ROS: 02:40 Constitutional: Negative for fever, chills, and weight loss, Eyes: Negative for injury, rn pain, redness, and discharge, Neck: Negative for injury, pain, and swelling, Cardiovascular: Negative for chest pain, palpitations, and edema, Respiratory: Negative for shortness of breath, cough, wheezing, and pleuritic chest pain, Abdomen/GI: Negative for abdominal pain, nausea, vomiting, diarrhea, and constipation, MS/Extremity: Negative for injury and deformity, Skin: Negative for injury, rash, and discoloration, Neuro: Negative for weakness, numbness, tingling, and seizure. Exam: 02:40 Constitutional: This is a well developed, well nourished patient who is awake, alert, rn and in no acute distress. Head/Face: Normocephalic, mild tenderness to left temporal region, no depression, no open wounds Eyes: Pupils equal round and reactive to light, extra-ocular motions intact. Lids and lashes normal. Conjunctiva and sclera are non-icteric and not injected. Cornea within normal limits. Periorbital areas with no swelling, redness, or edema. ENT: NO oral trauma. Neck: Trachea midline, no thyromegaly or masses palpated, and no cervical lymphadenopathy. Supple, full range of motion without nuchal rigidity, or vertebral point tenderness. No Meningismus. Skin: Warm, dry with normal turgor. Normal color with no rashes, no lesions, and no evidence of cellulitis. MS/ Extremity: Pulses equal, no cyanosis. Neurovascular intact. Full, normal range of motion. Equal circumference. Neuro: Awake and alert, GCS 15, oriented to person, place, time, and situation. Cranial nerves II-XII grossly intact. Motor strength 5/5 in all extremities. Sensory grossly intact. Cerebellar exam normal. Normal gait. Vital Signs: 02:30 BP 136 / 83; Pulse 58; Resp 18; Temp 98.3(O); Pulse Ox 100% on R/A; Weight 113.4 kg fc (R); Height 6 ft. 3 in. (190.50 cm) (R); Pain 4/10; 03:59 Pulse 49; Resp 16; Temp 98.2; Pulse Ox 99% on R/A; ak1 04:45 Pulse 75; Resp 16; Pulse Ox 99% on R/A; ak1 02:30 Body Mass Index 31.25 (113.40 kg, 190.50 cm) Maryam Coma Score: 04:36 Eye Response: spontaneous(4). Verbal Response: oriented(5). Motor Response: obeys rn commands(6). Total: 15. MDM: 02:36 Patient medically screened. rn 04:36 Differential diagnosis: traumatic injuries. Data reviewed: vital signs, nurses notes, rn radiologic studies, CT scan, and as a result, I will discharge patient. Counseling: I had a detailed discussion with the patient and/or guardian regarding: the historical points, exam findings, and any diagnostic results supporting the discharge/admit diagnosis, radiology results, the need for outpatient follow up, to return to the emergency department if symptoms worsen or persist or if there are any questions or concerns that arise at home. Special discussion: Based on the patient's history, exam and DX evaluation, there is no indication for emergent intervention or inpatient TX. It is understood by the patient/guardian that if the SXs persist or worsen they need to return immediately for re-evaluation. I discussed with the patient/guardian in detail that at this point there is no indication for admission to the hospital. It is understood, however, that if the symptoms persist or worsen the patient needs to return immediately for re-evaluation. 04:36 ED course: No acute findings on ct head. Will dc home. . rn 09/14 02:39 Order name: CT Head Brain wo Cont rn Administered Medications: No medications were administered Disposition: 09/14/18 04:37 Discharged to Home. Impression: Superficial injury of head. - Condition is Stable. - Discharge Instructions: Head Injury, Adult. - Medication Reconciliation Form, Thank You Letter, Antibiotic Education, Prescription Opioid Use form. - Follow up: Private Physician; When: As needed; Reason: Recheck today's complaints, Re-evaluation by your physician. - Problem is new. - Symptoms have improved. Signatures: Dispatcher [employer] EDMS Ynes Harris RN RN Cruzito Vaca MD MD rn Krenek, Amber, RN RN ak1 Corrections: (The following items were deleted from the chart) 04:45 04:37 09/14/2018 04:37 Discharged to Home. Impression: Superficial injury of head. ak1 Condition is Stable. Forms are Medication Reconciliation Form, Thank You Letter, Antibiotic Education, Prescription Opioid Use. Follow up: Private Physician; When: As needed; Reason: Recheck today's complaints, Re-evaluation by your physician. Problem is new. Symptoms have improved. rn
--- NOTE | 2018-09-14 10:35 | RAD REPORT ---
EXAM DESCRIPTION: CT - Head Brain Wo Cont - 09/14/2018 5:30 am CLINICAL HISTORY: Head injury COMPARISON: CT head 06/27/2018. TECHNIQUE: Axial [address] imaging of the brain. Reformatted coronal and sagittal images ob tained. This examination was performed according to our departmental dose optimization program, which include s automated exposure control, adjustment of the mA and/or kV according to patient size and/or use of iterative reconstruction technique. FINDINGS: Normal ventricle size and contour. Extra-axial fluid spaces appear normal. No intrarenal h emorrhage or edema. No mass or midline shift. No acute infarction or hyperdense vessel. Normal cerebellum and vermis. Fourth ventricle is midline. Prepontine cisterns are not effaced. Ada l sella contents. Normal appearance of the intraorbital contents. Clear imaged paranasal sinuses and mastoid air cells. Left frontal sinus is hypopneumatized. Intact skull base, calvarium, and imaged facial bones. IMPRESSION: 1. Unremarkable CT brain. Electronically signed by: Vivian Corbin DO 09/14/2018 4:25 AM CDT Due to temporary technical issues with the PACS/Fluency reporting system, reports are being signed by the in house radiologist as a courtesy to ensure prompt reporting. The interpreting radiologist is f ully responsible for the content of the report.
== END 2018-09-14 04:45 | disposition home or self-care (01) ==
LOC: ER 02:27
DX: S00.90XA Unspecified superficial injury of unspecified part of head, initial encounter (principal); W22.8XXA Striking against or struck by other objects, initial encounter; Y93.01 Activity, walking, marching and hiking; F41.9 Anxiety disorder, unspecified; M10.9 Gout, unspecified
CPT/HCPCS: 70450; 99283

== ENCOUNTER 2019-02-09 01:26 | Emergency (ER) | payer SELFPAY ==
--- NOTE | 2019-02-09 02:31 | ER ---
Nurse's Notes [facility] Name: He Schmitz Age: 23 yrs Sex: Male : 1995 Arrival Date: 02/09/2019 Time: 01:28 Bed 17 Private MD: Diagnosis: Left ventricular hypertrophy;Chest pain, unspecified;Anxiety disorder, unspecified Presentation: 02/09 01:42 Presenting complaint: Patient states: approx 1900 tonight pt started feeling left arm bb pain with some mild intermittent chest pain, denies nausea, SOB, or light-headedness the pain currently is 4/10. Transition of care: patient was not received from another setting of care. Onset of symptoms was February 09, 2019. Risk Assessment: Do you want to hurt yourself or someone else? Patient reports no desire to harm self or others. Initial Sepsis Screen: Does the patient meet any 2 criteria? No. Patient's initial sepsis screen is negative. Does the patient have a suspected source of infection? No. Patient's initial sepsis screen is negative. Care prior to arrival: None. 01:42 Method Of Arrival: Ambulatory bb 01:42 Acuity: NICOLE 3 bb Historical: - Allergies: 01:46 No Known Allergies; bb - Home Meds: 01:46 None [Active]; bb - PMHx: 01:46 Anxiety; Gout; left ventricular hypertrophy; bb - PSHx: 01:46 None; bb - Immunization history:: Adult Immunizations up to date. - Social history:: Smoking status: Patient/guardian denies using tobacco. - Ebola Screening: : No symptoms or risks identified at this time. Screenin:45 Abuse screen: Denies threats or abuse. Nutritional screening: No deficits noted. fc Tuberculosis screening: No symptoms or risk factors identified. Fall Risk None identified. Assessment: 01:35 General: Appears comfortable, Behavior is cooperative, appropriate for age, withdrawn. fc Pain: Complains of pain in chest Pain radiates to left arm Quality of pain is described as aching, Pain began yesterday Is intermittent. Neuro: Level of Consciousness is awake, alert, obeys commands, Oriented to person, place, time, situation, Appropriate for age Block Operator are equal bilaterally Moves all extremities. Full function Gait is steady, Speech slow. Cardiovascular: Reports chest pain, Heart tones S1 S2 present Capillary refill < 3 seconds Pulses are all present. Rhythm is regular Chest pain is described as vague, quality is aching is located in left radiates to left arm(s) began "yesterday" episodes are intermittent. Respiratory: Airway is patent Respiratory effort is even, unlabored, Respiratory pattern is regular, symmetrical, Breath sounds are clear bilaterally. GI: Abdomen is round Bowel sounds present X 4 quads. Abd is soft and non tender X 4 quads. Patient currently denies abdominal pain, nausea, vomiting. : No deficits noted. EENT: No deficits noted. Derm: Skin is pink, warm \\T\\ dry. Musculoskeletal: Circulation, motion, and sensation intact. Capillary refill < 3 seconds, Range of motion: intact in all extremities. 01:45 Reassessment: Assessment was done at 0145. 02:15 Reassessment: No changes from previously documented assessment. Patient and/or family fc updated on plan of care and expected duration. Pain level reassessed. Patient is alert, oriented x 3, equal unlabored respirations, skin warm/dry/pink. Pt has returned from radiology where he was having CXR done. 02:27 Reassessment: Pt up to bathroom to attempt to give us a urine sample. fc 02:36 Reassessment: Tracee JANITOR AND CLEANER in to see pt and discuss test results with pt and his mother. fc Also discussing discharge instruction. Vital Signs: 01:46 BP 134 / 92; Pulse 80; Resp 14 S; Temp 98.4(O); Pulse Ox 97% on R/A; Weight 108.86 kg bb (R); Height 6 ft. 2 in. (187.96 cm) (R); Pain 4/10; 02:26 BP 103 / 65; Pulse 73; Resp 18; Pulse Ox 100% on R/A; fc 02:37 BP 134 / 82; Pulse 67; Resp 18; Temp 98.0(O); Pulse Ox 97% on R/A; Pain 0/10; fc 01:46 Body Mass Index 30.81 (108.86 kg, 187.96 cm) bb ED Course: 01:28 Patient arrived in ED. es 01:38 [facility]eri [facility]C [facility]. snw 01:38 Raleigh Sullivan MD is Attending Physician. snw 01:44 Triage completed. bb 01:45 Patient has correct armband on for positive identification. Placed in gown. Bed in low fc position. Call light in reach. Adult w/ patient. Pulse ox on. NIBP on. 01:45 No provider procedures requiring assistance completed. Patient maintains SpO2 fc saturation greater than 95% on room air. 01:46 Arm band placed on Patient placed in an exam room, on a stretcher, on pulse oximetry. bb 02:04 Chest Pa And Lat (2 Views) XRAY In Process Unspecified. EDMS 02:43 Patient did not have IV access during this emergency room visit. fc Administered Medications: No medications were administered Outcome: 02:29 Discharge ordered by . keri 02:43 Discharged to home ambulatory, with family. eduard 02:43 Condition: stable 02:43 Discharge instructions given to patient, Instructed on discharge instructions, follow up and referral plans. Demonstrated understanding of instructions, follow-up care. 02:44 Patient left the ED. ea Signatures: Dispatcher [employer] EDLA Tracee Neri, SOLAR ENERGY ADVISOR-C SOLAR ENERGY ADVISOR-Csnw Ritika Kumar Felicia, RN RN Ada Gibson, RN RN Karo Bell, RN RN ea
--- NOTE | 2019-02-09 02:31 | EDPHYS ---
Physician Documentation [facility] Name: He Schmitz Age: 23 yrs Sex: Male : 1995 Arrival Date: 02/09/2019 Time: 01:28 Bed 17 Private MD: ED Physician Raleigh Sullivan HPI: 02/09 02:02 This 23 yrs old Male presents to ER via Ambulatory with complaints of snw Anxiety, Chest Pain. 02:02 Onset: The symptoms/episode began/occurred gradually, last night, at 19:00. Associated snw signs and symptoms: The patient has no apparent associated signs or symptoms. Modifying factors: The patient symptoms are alleviated by nothing, the patient symptoms are aggravated by anxiety. It is unknown whether or not the patient has had similar symptoms in the past. It is unknown whether or not the patient has recently seen a physician. Historical: - Allergies: 01:46 No Known Allergies; bb - Home Meds: :46 None [Active]; bb - PMHx: :46 Anxiety; Gout; left ventricular hypertrophy; bb - PSHx: :46 None; bb - Immunization history:: Adult Immunizations up to date. - Social history:: Smoking status: Patient/guardian denies using tobacco. - Ebola Screening: : No symptoms or risks identified at this time. ROS: 02:02 Constitutional: Negative for fever, chills, and weight loss, Eyes: Negative for injury, snw pain, redness, and discharge, ENT: Negative for injury, pain, and discharge, Neck: Negative for injury, pain, and swelling, Respiratory: Negative for shortness of breath, cough, wheezing, and pleuritic chest pain, Abdomen/GI: Negative for abdominal pain, nausea, vomiting, diarrhea, and constipation, Back: Negative for injury and pain, : Negative for injury, bleeding, discharge, and swelling, MS/Extremity: Negative for injury and deformity, Skin: Negative for injury, rash, and discoloration, Neuro: Negative for headache, weakness, numbness, tingling, and seizure. 02:02 Cardiovascular: Positive for chest pain, of the wraps around left chest around anterior chest wall, Negative for edema, orthopnea, palpitations, paroxysmal nocturnal dyspnea. Exam: 02:04 Head/Face: Normocephalic, atraumatic. Eyes: Pupils equal round and reactive to light, snw extra-ocular motions intact. Lids and lashes normal. Conjunctiva and sclera are non-icteric and not injected. Cornea within normal limits. Periorbital areas with no swelling, redness, or edema. ENT: Nares patent. No nasal discharge, no septal abnormalities noted. Tympanic membranes are normal and external auditory canals are clear. Oropharynx with no redness, swelling, or masses, exudates, or evidence of obstruction, uvula midline. Mucous membranes moist. Neck: Trachea midline, no thyromegaly or masses palpated, and no cervical lymphadenopathy. Supple, full range of motion without nuchal rigidity, or vertebral point tenderness. No Meningismus. Chest/axilla: Normal chest wall appearance and motion. Nontender with no deformity. No lesions are appreciated. Cardiovascular: Regular rate and rhythm with a normal S1 and S2. No gallops, murmurs, or rubs. Normal PMI, no JVD. No pulse deficits. Respiratory: Lungs have equal breath sounds bilaterally, clear to auscultation and percussion. No rales, rhonchi or wheezes noted. No increased work of breathing, no retractions or nasal flaring. Abdomen/GI: Soft, non-tender, with normal bowel sounds. No distension or tympany. No guarding or rebound. No evidence of tenderness throughout. Back: No spinal tenderness. No costovertebral tenderness. Full range of motion. MS/ Extremity: Pulses equal, no cyanosis. Neurovascular intact. Full, normal range of motion. Neuro: Awake and alert, GCS 15, oriented to person, place, time, and situation. Cranial nerves II-XII grossly intact. Motor strength 5/5 in all extremities. Sensory grossly intact. Cerebellar exam normal. Normal gait. Psych: Awake, alert, with orientation to person, place and time. Behavior, mood, and affect are within normal limits. 02:04 Constitutional: The patient appears anxious, listless, shy, slow to communicate, does not make eye contact, head bowed 02:04 Skin: Appearance: normal except for affected area, Moisture: dry, hands and face with dry, erythematous, peeling skin. Vital Signs: 01:46 BP 134 / 92; Pulse 80; Resp 14 S; Temp 98.4(O); Pulse Ox 97% on R/A; Weight 108.86 kg bb (R); Height 6 ft. 2 in. (187.96 cm) (R); Pain 4/10; 02:26 BP 103 / 65; Pulse 73; Resp 18; Pulse Ox 100% on R/A; fc 02:37 BP 134 / 82; Pulse 67; Resp 18; Temp 98.0(O); Pulse Ox 97% on R/A; Pain 0/10; fc 01:46 Body Mass Index 30.81 (108.86 kg, 187.96 cm) bb MDM: 01:38 Patient medically screened. snw 02:00 ED course: Pt does not make eye contact, seems sad, when pt left for x-ray I asked Mom snw if she had noted changes in his mood. She states he has always been the same, they were told at one point he was autistic, another psychiatric provider stated he was bipolar. Mom states she doesn't really know but thinks he has some PTSD and some anxiety disorder, states he has not seemed any more withdrawn or sad.. 02:33 Data reviewed: vital signs, nurses notes. Data interpreted: Pulse oximetry: on room air snw is 100 %. Interpretation: normal. Counseling: I had a detailed discussion with the patient and/or guardian regarding: the historical points, exam findings, and any diagnostic results supporting the discharge/admit diagnosis, lab results, radiology results, the need for outpatient follow up, to return to the emergency department if symptoms worsen or persist or if there are any questions or concerns that arise at home. Special discussion: Based on the patient's history, exam, and Dx evaluation, there is no indication for emergent intervention or inpatient Tx. It is understood by the patient/guardian that if the Sx's persist or worsen they need to return immediately for re-evaluation. Based on the history and exam findings, there is no indication for further emergent testing or inpatient evaluation. I discussed with the patient/guardian the need to see the primary care provider for further evaluation of the symptoms. I discussed with the patient/guardian the need to see the psychiatrist for further evaluation of the symptoms. 02/09 01:46 Order name: UDS snw 02/09 01:46 Order name: Chest Pa And Lat (2 Views) XRAY snw 02/09 01:46 Order name: EKG; Complete Time: 01:47 snw 02/09 01:46 Order name: EKG - Nurse/Tech; Complete Time: 02:25 snw Administered Medications: No medications were administered Disposition: 04:21 Co-signature as Attending Physician, Raleigh Sullivan MD. dolly Disposition: 02/09/19 02:29 Discharged to Home. Impression: Left ventricular hypertrophy, Chest pain, unspecified, Anxiety disorder, unspecified. - Condition is Stable. - Discharge Instructions: Nonspecific Chest Pain, Pain Without a Known Cause, Social Anxiety Disorder, Stress and Stress Management, Generalized Anxiety Disorder. - Work release form, Medication Reconciliation Form, Thank You Letter, Antibiotic Education, Prescription Opioid Use form. - Follow up: Private Physician; When: 2 - 3 days; Reason: Recheck today's complaints, Continuance of care, Re-evaluation by your physician. Follow up: Emergency Department; When: As needed; Reason: Trouble breathing, Worsening of condition. - Notes: Dr. Marco Lam, Board Certified Psychiatrist. [address] [place] [address] Signatures: Dispatcher [employer] EDMS aRleigh Sullivan MD MD pkl Therrien, Shelly, CLINICAL CYTOGENETICIST SCIENTIST-C CLINICAL CYTOGENETICIST SCIENTIST-Csnw Ada Wagner, RN RN Karo Bell RN RN ea Corrections: (The following items were deleted from the chart) 02:44 02:29 02/09/2019 02:29 Discharged to Home. Impression: Left ventricular hypertrophy; ea Chest pain, unspecified; Anxiety disorder, unspecified. Condition is Stable. Forms are Medication Reconciliation Form, Thank You Letter, Antibiotic Education, Prescription Opioid Use. Follow up: Private Physician; When: 2 - 3 days; Reason: Recheck today's complaints, Continuance of care, Re-evaluation by your physician. Follow up: Emergency Department; When: As needed; Reason: Trouble breathing, Worsening of condition. snw
[2019-02-09 02:54] LABS: Barbiturates NEGATIVE (NEGATIVE); Benzodiazepines NEGATIVE (NEGATIVE); Cocaine NEGATIVE (NEGATIVE); METHAMPHETAM NEGATIVE (NEGATIVE); Methadone NEGATIVE (NEGATIVE); Opiates NEGATIVE (NEGATIVE); Phencyclidine NEGATIVE (NEGATIVE); THC Cannibis NEGATIVE (NEGATIVE)
[2019-02-09 02:55] VITALS: BP 134/82; TEMP 98; O2SAT 97
--- NOTE | 2019-02-09 09:31 | RAD REPORT ---
EXAM DESCRIPTION: RAD - Chest Pa And Lat (2 Views) - 02/09/2019 2:05 am CLINICAL HISTORY: CHEST PAIN COMPARISON: None. TECHNIQUE: PA and lateral views of the chest were obtained. FINDINGS: The lungs are clear. Heart size is normal and central vasculature is within normal limit s. No pleural effusion or pneumothorax seen. No acute bony finding noted. No aortic abnormality. IMPRESSION: No acute cardiopulmonary process.
--- NOTE | 2019-02-10 06:46 | EKG ---
Test Date: 2019-02-09 Test Time: 02:26:31 Marketing Strategy Lead: ENEDELIA MEASUREMENT RESULTS: Intervals: Rate: 62 MT: 140 QRSD: 90 QT: 414 QTc: 420 [place]: P: 29 MT: 140 QRS: -25 T: -3 INTERPRETIVE STATEMENTS: Normal sinus rhythm Voltage criteria for left ventricular hypertrophy Abnormal ECG No previous ECG available for comparison Electronically Signed On 02-10-19 06:43:43 ELECTRONEURODIAGNOSTIC TECHNICIAN by Guille Marin
== END 2019-02-09 02:44 | disposition home or self-care (01) ==
LOC: ER 01:26
DX: F41.9 Anxiety disorder, unspecified (principal); I51.7 Cardiomegaly
CPT/HCPCS: 71046; 80307; 93005; 99284

== ENCOUNTER 2019-03-28 13:33 | Emergency (ER) | payer SELFPAY ==
--- NOTE | 2019-03-28 14:41 | ER ---
Nurse's Notes [facility] Name: He Schmitz Age: 24 yrs Sex: Male : 1995 Arrival Date: 03/28/2019 Time: 13:37 Bed 20 Private MD: Diagnosis: Paresthesia of skin Presentation: 03/28 14:04 Presenting complaint: Patient states: I was typing and touched the USB port, and that's ca1 when I felt electrocuted on my L hand. Reports tingling and feels like my hand is a sleep and there are pins and needles. It happened at around 1100 today. Transition of care: patient was not received from another setting of care. Onset of symptoms was March 28, 2019. Risk Assessment: Do you want to hurt yourself or someone else? Patient reports no desire to harm self or others. Initial Sepsis Screen: Does the patient meet any 2 criteria? No. Patient's initial sepsis screen is negative. Does the patient have a suspected source of infection? No. Patient's initial sepsis screen is negative. Care prior to arrival: None. 14:04 Method Of Arrival: Ambulatory ca1 14:04 Acuity: NICOLE 3 ca1 Historical: - Allergies: 14:09 No Known Allergies; ca1 - Home Meds: 14:09 None [Active]; ca1 - PMHx: 14:09 Anxiety; Gout; Left ventricular hypertrophy; ca1 - PSHx: 14:09 None; ca1 - Immunization history:: Adult Immunizations up to date, Last tetanus immunization: < 5 years ago Flu vaccine is not up to date. - Coronavirus screen:: The patient has NOT traveled to [place] in the past 14 days. The patient has NOT had contact with known/suspected case of Coronavirus?. - Social history:: Smoking status: Patient denies any tobacco usage or history of. - Ebola Screening: : Patient negative for fever greater than or equal to 101.5 degrees Fahrenheit, and additional compatible Ebola Virus Disease symptoms Patient denies exposure to infectious person Patient denies travel to an Ebola-affected area in the 21 days before illness onset No symptoms or risks identified at this time. Screenin:16 Abuse screen: Denies threats or abuse. Nutritional screening: No deficits noted. rb1 Tuberculosis screening: No symptoms or risk factors identified. Fall Risk None identified. Assessment: 14:16 General: Appears in no apparent distress. comfortable, Behavior is calm, cooperative. rb1 Pain: Denies pain. Neuro: Level of Consciousness is awake, alert, obeys commands, Oriented to person, place, time, situation, Reports numbness in left hand since 1100 this morning. Cardiovascular: Capillary refill < 3 seconds is brisk in bilateral fingers. Respiratory: Airway is patent Respiratory effort is even, unlabored, Respiratory pattern is regular, symmetrical. GI: No signs and/or symptoms were reported involving the gastrointestinal system. : No signs and/or symptoms were reported regarding the genitourinary system. Derm: Skin is pink, warm \T\ dry. 14:16 Musculoskeletal: Range of motion: intact in all extremities. rb1 15:00 Reassessment: Patient appears in no apparent distress at this time. No changes from rb1 previously documented assessment. Vital Signs: 14:09 BP 132 / 89; Pulse 77; Resp 16 S; Temp 98.6(O); Pulse Ox 97% on R/A; Weight 104.33 kg ca1 (R); Height 6 ft. 2 in. (187.96 cm) (R); 14:09 Body Mass Index 29.53 (104.33 kg, 187.96 cm) ca1 ED Course: 13:37 Patient arrived in ED. fj1 14:08 Triage completed. ca1 14:09 Arm band placed on right wrist. ca1 14:10 Madison Liu FNP-C is PHCP. kb 14:10 Cruzito Vaca MD is Attending Physician. kb 14:16 Patient has correct armband on for positive identification. Bed in low position. Call rb1 light in reach. Side rails up X 1. Pulse ox on. NIBP on. 14:36 Astrid Pope, RN is Primary Nurse. rb1 15:13 No provider procedures requiring assistance completed. Patient did not have IV access rb1 during this emergency room visit. Administered Medications: No medications were administered Outcome: 14:39 Discharge ordered by . kb 15:13 Discharged to home ambulatory. rb1 15:13 Condition: stable 15:13 Discharge instructions given to patient, Instructed on discharge instructions, follow up and referral plans. Demonstrated understanding of instructions, follow-up care, Prescriptions given X none 15:14 Patient left the ED. rb1 Signatures: Madison Liu FNP-C FNP-Astrid Wilson, RN RN rb1 Acob, Lorraine, RN RN ca1 Fausto, David fj1
--- NOTE | 2019-03-28 14:42 | EDPHYS ---
Physician Documentation [facility] Name: He Shcmitz Age: 24 yrs Sex: Male : 1995 Arrival Date: 03/28/2019 Time: 13:37 Bed 20 Private MD: ED Physician Cruzito Vaca HPI: 03/28 14:37 This 24 yrs old Male presents to ER via Ambulatory with complaints of kb Electrocution, Numbness Of Hand. 14:37 The patient or guardian reports tingling. The complaints affect the left hand kb diffusely. Context: The problem was sustained inside, resulted from being "zapped" by the computer. Onset: The symptoms/episode began/occurred today, at 11:00. Modifying factors: The symptoms are alleviated by nothing, the symptoms are aggravated by nothing. Associated signs and symptoms: The patient has no apparent associated signs or symptoms. Severity of symptoms: At their worst the symptoms were mild, in the emergency department the symptoms are unchanged. The patient has not experienced similar symptoms in the past. The patient has not recently seen a physician. Pt reports he was plugging something into the USB port on his computer and it "zapped" him. c/o tingling to left hand since then. Historical: - Allergies: 14:09 No Known Allergies; ca1 - Home Meds: 14:09 None [Active]; ca1 - PMHx: 14:09 Anxiety; Gout; Left ventricular hypertrophy; ca1 - PSHx: 14:09 None; ca1 - Immunization history:: Adult Immunizations up to date, Last tetanus immunization: < 5 years ago Flu vaccine is not up to date. - Coronavirus screen:: The patient has NOT traveled to [place] in the past 14 days. The patient has NOT had contact with known/suspected case of Coronavirus?. - Social history:: Smoking status: Patient denies any tobacco usage or history of. - Ebola Screening: : Patient negative for fever greater than or equal to 101.5 degrees Fahrenheit, and additional compatible Ebola Virus Disease symptoms Patient denies exposure to infectious person Patient denies travel to an Ebola-affected area in the 21 days before illness onset No symptoms or risks identified at this time. ROS: 14:37 Constitutional: Negative for fever, chills, and weight loss, ENT: Negative for injury, kb pain, and discharge, Neck: Negative for injury, pain, and swelling, Cardiovascular: Negative for chest pain, palpitations, and edema, Respiratory: Negative for shortness of breath, cough, wheezing, and pleuritic chest pain, Abdomen/GI: Negative for abdominal pain, nausea, vomiting, diarrhea, and constipation, Back: Negative for injury and pain, Skin: Negative for injury, rash, and discoloration. 14:37 MS/extremity: Positive for tingling, of the left hand. Exam: 14:35 Constitutional: This is a well developed, well nourished patient who is awake, alert, kb and in no acute distress. Head/Face: Normocephalic, atraumatic. Neck: Trachea midline, no thyromegaly or masses palpated, and no cervical lymphadenopathy. Supple, full range of motion without nuchal rigidity, or vertebral point tenderness. No Meningismus. Chest/axilla: Normal chest wall appearance and motion. Nontender with no deformity. No lesions are appreciated. Cardiovascular: Regular rate and rhythm with a normal S1 and S2. No gallops, murmurs, or rubs. Normal PMI, no JVD. No pulse deficits. Respiratory: Lungs have equal breath sounds bilaterally, clear to auscultation and percussion. No rales, rhonchi or wheezes noted. No increased work of breathing, no retractions or nasal flaring. Abdomen/GI: Soft, non-tender, with normal bowel sounds. No distension or tympany. No guarding or rebound. No evidence of tenderness throughout. Back: No spinal tenderness. No costovertebral tenderness. Full range of motion. Skin: Warm, dry with normal turgor. Normal color with no rashes, no lesions, and no evidence of cellulitis. MS/ Extremity: Pulses equal, no cyanosis. Neurovascular intact. Full, normal range of motion. Neuro: Awake and alert, GCS 15, oriented to person, place, time, and situation. Cranial nerves II-XII grossly intact. Motor strength 5/5 in all extremities. Sensory grossly intact. Cerebellar exam normal. Normal gait. 14:35 ECG was reviewed by the Attending Physician. Vital Signs: 14:09 BP 132 / 89; Pulse 77; Resp 16 S; Temp 98.6(O); Pulse Ox 97% on R/A; Weight 104.33 kg ca1 (R); Height 6 ft. 2 in. (187.96 cm) (R); 14:09 Body Mass Index 29.53 (104.33 kg, 187.96 cm) ca1 MDM: 14:10 Patient medically screened. kb 14:36 Data reviewed: vital signs, nurses notes. Data interpreted: Pulse oximetry: on room air kb is 97 %. Interpretation: normal. Counseling: I had a detailed discussion with the patient and/or guardian regarding: the historical points, exam findings, and any diagnostic results supporting the discharge/admit diagnosis, the need for outpatient follow up, a family practitioner, to return to the emergency department if symptoms worsen or persist or if there are any questions or concerns that arise at home. 03/28 14:13 Order name: EKG; Complete Time: 14:32 kb 03/28 14:13 Order name: EKG - Nurse/Tech; Complete Time: 14:34 kb EC:35 Rate is 54 beats/min. Rhythm is regular, Sinus bradycardia. Left axis deviation noted. kb CT interval is normal at 130 msec. QRS interval is normal at 88 msec. QT interval is normal at 412 msec. Administered Medications: No medications were administered Disposition: 17:48 Co-signature as Attending Physician, Cruzito Vaca MD. rn Disposition: 03/28/19 14:39 Discharged to Home. Impression: Paresthesia of skin. - Condition is Stable. - Discharge Instructions: Electric Shock Injury, Paresthesia, [id number]. - Medication Reconciliation Form, Thank You Letter, Antibiotic Education, Prescription Opioid Use form. - Follow up: Emergency Department; When: As needed; Reason: Worsening of condition. Follow up: Private Physician; When: 2 - 3 days; Reason: Recheck today's complaints, Continuance of care, Re-evaluation by your physician. Signatures: Madison Liu, NETWORK CONTROL SUPERVISOR-C NETWORK CONTROL SUPERVISOR-Ckb Cruzito Vaca MD MD rn Barber, Rebecca RN RN rb1 Lorraine Villarreal RN RN ca1 Corrections: (The following items were deleted from the chart) 15:14 14:39 03/28/2019 14:39 Discharged to Home. Impression: Paresthesia of skin. Condition rb1 is Stable. Forms are Medication Reconciliation Form, Thank You Letter, Antibiotic Education, Prescription Opioid Use. Follow up: Emergency Department; When: As needed; Reason: Worsening of condition. Follow up: Private Physician; When: 2 - 3 days; Reason: Recheck today's complaints, Continuance of care, Re-evaluation by your physician. kb
--- NOTE | 2019-03-28 15:24 | EKG ---
Test Date: 2019-03-28 Test Time: 14:32:01 Housekeeper/Laundry Assistant: SOCRATES MEASUREMENT RESULTS: Intervals: Rate: 54 AL: 130 QRSD: 88 QT: 412 QTc: 390 [place]: P: 43 AL: 130 QRS: -17 T: 2 INTERPRETIVE STATEMENTS: Sinus bradycardia Moderate voltage criteria for LVH, may be normal variant Borderline ECG Compared to ECG 02/09/2019 02:26:31 Sinus rhythm no longer present Electronically Signed On 03-28-19 15:23:54 BATTERY MECHANIC by Guille Marin
[2019-03-28 15:59] VITALS: BP 132/89; TEMP 98.6; O2SAT 97
== END 2019-03-28 15:14 | disposition home or self-care (01) ==
LOC: ER 13:33
DX: R20.2 Paresthesia of skin (principal); W86.0XXA Exposure to domestic wiring and appliances, initial encounter; Y93.89 Activity, other specified; Y92.89 Other specified places as the place of occurrence of the external cause
CPT/HCPCS: 93005; 99283

== ENCOUNTER 2019-04-28 11:32 | Emergency (ER) | payer SELFPAY ==
--- NOTE | 2019-04-28 12:34 | RAD REPORT ---
EXAM DESCRIPTION: RAD - Chest Pa And Lat (2 Views) - 04/28/2019 12:16 pm CLINICAL HISTORY: Cough;Chest pain Chest pain. COMPARISON: Chest Pa And Lat (2 Views) dated 02/09/2019 FINDINGS: Mild linear opacities are seen in the left retrocardiac region likely representing early i nfiltrate. The lungs are otherwise clear. The heart is normal in size. No displaced fractures. IMPRESSION: Left lung base early infiltrate suspected.
[2019-04-28 12:42] LABS: Absolute Lymphocytes (CBC) 1.3 K/uL (0.7-4.9); Basophils % 0.7 % (0-1.3); Hematocrit 45.9 % (39.6-49.0); Lymphocytes % 20.4 % (15.3-44.8); MPV 9.1 fL (7.6-11.3); RBC Red Blood Cell Count 5.44 M/uL (4.33-5.43)
--- NOTE | 2019-04-28 12:59 | EKG ---
Test Date: 2019-04-28 Test Time: 12:08:28 Bonded Strand Operator: MICHELLE MEASUREMENT RESULTS: Intervals: Rate: 74 OK: 136 QRSD: 84 QT: 388 QTc: 430 [place]: P: 52 [place]: 136 QRS: 17 T: 19 INTERPRETIVE STATEMENTS: Normal sinus rhythm Normal ECG Compared to ECG 03/28/2019 14:32:01 Sinus bradycardia no longer present Electronically Signed On 04-28-19 12:59:05 CDT by Gibran Arroyo
[2019-04-28 13:02] LABS: BUN Blood Urea Nitrogen 12 mg/dL (7-18); Bicarbonate 28 mmol/L (21-32); Glucose Level 105 mg/dL (74-106); NT PRO-BNP 16 pg/mL (<125); Potassium 3.8 mmol/L (3.5-5.1); Sodium Level 141 mmol/L (136-145); Troponin I < 0.02 ng/mL (0.0-0.045)
--- NOTE | 2019-04-28 13:17 | ER ---
Nurse's Notes [facility] Name: He Schmitz Age: 24 yrs Sex: Male : 1995 Arrival Date: 04/28/2019 Time: 11:33 Bed 19 Private MD: Diagnosis: Pneumonia due to other specified bacteria;Other chest pain Presentation: 04/27 11:44 Chief complaint: Patient states: Cough x 3-4 days and R sided chest pressure x 1 day, ph denies fever, chills, also denies N/V/D. Coronavirus screen: The patient has NOT traveled to a country currently being monitored by the [facility] within the last 14 days. The patient has NOT had contact with any known and/or suspected case of coronavirus. Ebola Screen: No symptoms or risks identified at this time. Initial Sepsis Screen: Does the patient meet any 2 criteria? No. Patient's initial sepsis screen is negative. Does the patient have a suspected source of infection? No. Patient's initial sepsis screen is negative. Risk Assessment: Do you want to hurt yourself or someone else? Patient reports no desire to harm self or others. 11:44 Method Of Arrival: Ambulatory ph 11:44 Acuity: NICOLE 4 ph 12:05 Onset of symptoms was April 28, 2019. wh 12:37 Acuity: NICOLE 3 iw Historical: - Allergies: 11:46 No Known Allergies; ph - PMHx: 11:46 Left ventricular hypertrophy; Gout; Anxiety; ph - PSHx: 11:46 None; ph - Immunization history:: Adult Immunizations unknown. - Social history:: Smoking status: Patient denies any tobacco usage or history of. Screenin:05 Abuse screen: Denies threats or abuse. Denies injuries from another. Nutritional wh screening: No deficits noted. Tuberculosis screening: No symptoms or risk factors identified. Fall Risk None identified. Assessment: 12:10 General: Appears in no apparent distress. Behavior is calm, cooperative, appropriate wh for age. Pain: Complains of pain in chest Pain does not radiate. Pain began 2-3 days ago. Neuro: Level of Consciousness is awake, alert, obeys commands, Oriented to person, place, time, situation, Appropriate for age. Cardiovascular: Heart tones S1 S2 Rhythm is regular. Respiratory: Reports cough that is Airway is patent Respiratory effort is even, unlabored, Respiratory pattern is regular, symmetrical, Breath sounds are clear bilaterally. GI: Abdomen is flat, non-distended. : No signs and/or symptoms were reported regarding the genitourinary system. EENT: Throat is pink. Derm: Skin is intact, is healthy with good turgor, Skin is pink, warm \T\ dry. normal. Musculoskeletal: Circulation, motion, and sensation intact. 13:25 Reassessment: Patient appears in no apparent distress at this time. No changes from previously documented assessment. Patient and/or family updated on plan of care and expected duration. Pain level reassessed. Patient is alert, oriented x 3, equal unlabored respirations, skin warm/dry/pink. Vital Signs: 11:44 BP 129 / 83; Pulse 90; Resp 18; Temp 98.4; Pulse Ox 97% on R/A; Weight 108.86 kg; ph Height 6 ft. 2 in. (187.96 cm); 13:15 BP 117 / 81; Pulse 67; Resp 18; Pulse Ox 99% on R/A; wh 11:44 Body Mass Index 30.81 (108.86 kg, 187.96 cm) ph ED Course: 11:33 Patient arrived in ED. ag5 11:36 Lonnie Osorio PA is PHCP. cp 11:36 Alok Griffin MD is Attending Physician. cp 11:38 Robert Cruz is Primary Nurse. wh 11:46 Triage completed. ph 11:47 Arm band placed on Patient placed in an exam room. ph 12:05 Patient has correct armband on for positive identification. Bed in low position. Call light in reach. Side rails up X 1. Pulse ox on. NIBP on. 12:15 Chest Pa And Lat (2 Views) XRAY In Process Unspecified. EDMS 12:37 Initial lab(s) drawn, by me. Inserted saline lock: 20 gauge in right antecubital area, iw using aseptic technique. Blood collected. Patient maintains SpO2 saturation greater than 95% on room air. 13:34 No provider procedures requiring assistance completed. IV discontinued, intact, wh bleeding controlled, No redness/swelling at site. Administered Medications: 13:20 Drug: Zithromax 500 mg Route: PO; 13:36 Follow up: Response: No adverse reaction Outcome: 13:16 Discharge ordered by . cp 13:35 Discharged to home ambulatory, with family. 13:35 Condition: stable 13:35 Discharge instructions given to patient, family, Instructed on discharge instructions, follow up and referral plans. medication usage, POC Demonstrated understanding of instructions, follow-up care, medications, POC Prescriptions given X 4. 13:36 Patient left the ED. Signatures: Dispatcher [employer] EDShireen Cui RN RN Magdalene Huang RN RN ph Jo, Lonnie, PA PA christopher Cruz, Robert John Eng ag5
--- NOTE | 2019-04-28 13:17 | EDPHYS ---
Physician Documentation [facility] Name: He Schmitz Age: 24 yrs Sex: Male : 1995 Arrival Date: 04/28/2019 Time: 11:33 Bed 19 Private MD: ED Physician Alok Griffin HPI: 04/27 11:55 This 24 yrs old Male presents to ER via Ambulatory with complaints of Chest cp Pressure, Cough. 11:55 The patient or guardian reports cough, that is intermittent. cp 11:55 Onset: The symptoms/episode began/occurred 4 day(s) ago. Associated signs and symptoms: cp Pertinent positives: chest pain, described as pressure, sore throat, Pertinent negatives: diarrhea, fever, vomiting. Severity of symptoms: in the emergency department the symptoms are unchanged despite home interventions. Historical: - Allergies: 11:46 No Known Allergies; ph - PMHx: 11:46 Left ventricular hypertrophy; Gout; Anxiety; ph - PSHx: 11:46 None; ph - Immunization history:: Adult Immunizations unknown. - Social history:: Smoking status: Patient denies any tobacco usage or history of. ROS: 12:00 Constitutional: Negative for body aches, chills, fever, poor PO intake. cp 12:00 Eyes: Negative for injury, pain, redness, and discharge. cp 12:00 ENT: Positive for sore throat, Negative for drainage from ear(s), ear pain, difficulty cp swallowing, difficulty handling secretions. 12:00 Cardiovascular: Positive for chest pain, Negative for edema, palpitations. 12:00 Respiratory: Positive for cough, "sounds productive", Negative for shortness of breath, wheezing. 12:00 Abdomen/GI: Negative for abdominal pain, vomiting, diarrhea, constipation. 12:00 : Negative for urinary symptoms. 12:00 Neuro: Negative for altered mental status, dizziness, headache, weakness. 12:00 All other systems are negative. cp Exam: 12:05 Constitutional: The patient appears in no acute distress, alert, awake, non-toxic, well cp developed, well nourished. 12:05 Head/Face: Normocephalic, atraumatic. cp 12:05 Eyes: Periorbital structures: appear normal, Conjunctiva: normal, no exudate, no injection, Sclera: no appreciated abnormality, Lids and lashes: appear normal, bilaterally. 12:05 ENT: External ear(s): are unremarkable, Ear canal(s): are normal, clear, TM's: bulging, is not appreciated, bilaterally, dullness, bilaterally, erythema, is not appreciated, bilaterally, Nose: is normal, Mouth: Lips: moist, Oral mucosa: moist, Posterior pharynx: Airway: no evidence of obstruction, patent, Tonsils: with erythema, no enlargement, no exudate, Uvula: midline, swelling, is not appreciated, erythema, that is mild, exudate, is not appreciated. 12:05 Neck: ROM/movement: is normal, is supple, without pain, no range of motions limitations, no meningismus, no nuchal rigidity, Lymph nodes: no appreciated lymphadenopathy. 12:05 Chest/axilla: Inspection: normal, Palpation: is normal, no crepitus, no tenderness. 12:05 Cardiovascular: Rate: normal, Rhythm: regular, Heart sounds: murmur, not appreciated, rub, not appreciated, gallop, not appreciated, Edema: is not appreciated. 12:05 Respiratory: the patient does not display signs of respiratory distress, Respirations: normal, no use of accessory muscles, no retractions, no splinting, no tachypnea, labored breathing, is not present, Breath sounds: decreased breath sounds, are not appreciated, stridor, is not appreciated, + upper airway congestion. wheezing: is not appreciated. 12:05 Abdomen/GI: Inspection: abdomen appears normal, Bowel sounds: active, all quadrants, Palpation: abdomen is soft and non-tender, in all quadrants, voluntary guarding, is not appreciated, involuntary guarding, is not appreciated. 12:13 ECG was reviewed by the Attending Physician. cp Vital Signs: 11:44 BP 129 / 83; Pulse 90; Resp 18; Temp 98.4; Pulse Ox 97% on R/A; Weight 108.86 kg; ph Height 6 ft. 2 in. (187.96 cm); 13:15 BP 117 / 81; Pulse 67; Resp 18; Pulse Ox 99% on R/A; wh 11:44 Body Mass Index 30.81 (108.86 kg, 187.96 cm) ph MDM: 11:44 Patient medically screened. cp 12:30 Differential diagnosis: bronchitis, flu, URI, pneumonia, strep throat. cp 12:44 Test interpretation: by ED physician or midlevel provider: ECG. 13:15 Data reviewed: vital signs, nurses notes, lab test result(s), EKG, radiologic studies, cp plain films, and as a result, I will discharge patient. 13:15 Antibiotic administration: The patient is discharged and will get outpatient antibiotics, Zithromax. 13:15 Counseling: I had a detailed discussion with the patient and/or guardian regarding: the cp historical points, exam findings, and any diagnostic results supporting the discharge/admit diagnosis, lab results, radiology results, the need for outpatient follow up, a family practitioner, to return to the emergency department if symptoms worsen or persist or if there are any questions or concerns that arise at home. 04/27 11:53 Order name: Influenza Screen (a \\T\\ B); Complete Time: 12:43 04/27 12:43 Interpretation: Reviewed. 04/27 11:53 Order name: Strep; Complete Time: 13:09 04/27 13:09 Interpretation: Reviewed. 04/27 12:16 Order name: CBC with Diff; Complete Time: 13:09 04/27 13:09 Interpretation: Normal except: RBC 5.44. 04/27 12:16 Order name: Troponin I; Complete Time: 13:09 04/27 12:16 Order name: BMP; Complete Time: 13:09 04/27 13:09 Interpretation: Normal except: CL 109; GFR 79. 04/27 12:16 Order name: BNP; Complete Time: 13:09 04/27 11:53 Order name: EKG; Complete Time: 11:54 04/27 11:53 Order name: EKG - Nurse/Tech; Complete Time: 12:09 04/27 11:53 Order name: Chest Pa And Lat (2 Views) XRAY; Complete Time: 12:43 04/27 12:44 Interpretation: Report reviewed. 04/27 12:16 Order name: IV; Complete Time: 12:29 04/27 12:52 Order name: Throat Culture EDMS EC:13 Rate is 74 beats/min. Rhythm is regular. NJ interval is normal. QRS interval is normal. cp QT interval is normal. Interpreted by me. Reviewed by me. Administered Medications: 13:20 Drug: Zithromax 500 mg Route: PO; 13:36 Follow up: Response: No adverse reaction Disposition: 18:59 Co-signature as Attending Physician, Alok Griffin MD Did not see or evaluate patient. ps1 Signature for administrative purposes. . Disposition: 04/28/19 13:16 Discharged to Home. Impression: Pneumonia due to other specified bacteria, Other chest pain. - Condition is Stable. - Discharge Instructions: Nonspecific Chest Pain, Community-Acquired Pneumonia, Adult. - Prescriptions for Ibuprofen 800 mg Oral Tablet - take 1 tablet by ORAL route every 8 hours As needed take with food; 30 tablet. Zithromax Z- Rodríguez 250 mg Oral Tablet - take 1 tablet by ORAL route as directed for 5 days Day 1 - take two (2) tablets one time. Day 2, 3, 4 , 5 take one (1) tablet once daily.; 6 tablet. Albuterol Sulfate 90 mcg/actuation - inhale 1-2 puff by INHALATION route every 4-6 hours; 1 Inhaler. Tessalon Perles 100 mg Oral Capsule - take 2 capsule by ORAL route every 8 hours As needed; 30 capsule. - Medication Reconciliation Form, Thank You Letter, Antibiotic Education, Prescription Opioid Use form. - Follow up: Private Physician; When: 2 - 3 days; Reason: Recheck today's complaints. - Problem is new. - Symptoms have improved. Signatures: Dispatcher [employer] Magdalene Kelsey RN RN ph Lonnie Osorio PA PA christopher Cruz, Robert , MD LESLYE Dickinson ps1 Corrections: (The following items were deleted from the chart) 12:44 12:43 Test interpretation: by ED physician or midlevel provider: ECG, plain radiologic cp studies, chest xray negative for infiltrates and focal pneumonia, cp 13:36 13:16 04/28/2019 13:16 Discharged to Home. Impression: Pneumonia due to other specified bacteria; Other chest pain. Condition is Stable. Forms are Medication Reconciliation Form, Thank You Letter, Antibiotic Education, Prescription Opioid Use. Follow up: Private Physician; When: 2 - 3 days; Reason: Recheck today's complaints. Problem is new. Symptoms have improved. cp
[2019-04-28] MEDS ORDERED: AZITHROMYCIN 250 MG TAB ONE (13:23)
[2019-04-28 14:05] VITALS: BP 129/83; TEMP 98.4; O2SAT 97
== END 2019-04-28 13:36 | disposition home or self-care (01) ==
LOC: ER 11:32
DX: J15.8 Pneumonia due to other specified bacteria (principal)
CPT/HCPCS: 36415; 71046; 80048; 83880; 84484; 85025; 87070; 87081; 87804; 93005; 99284

== ENCOUNTER 2019-05-25 21:23 | Emergency (ER) | payer SELFPAY ==
--- NOTE | 2019-05-25 22:26 | ER ---
Nurse's Notes [facility] Name: He Schmitz Age: 24 yrs Sex: Male : 1995 Arrival Date: 05/25/2019 Time: 21:26 Bed 2 Private MD: Diagnosis: Sebaceous cyst-blackhead, removed in total Presentation: 05/24 21:38 Chief complaint: Patient states: Small spot to right side of neck has been there since ll1 2017. States the spot turned black today so he came in. No fever or pain. Coronavirus screen: Proceed with normal triage. Patient denies a cough. Patient denies shortness of breath or difficulty breathing. Patient denies measured and/or subjective temperature greater than 100.4F prior to today's visit. Patient denies travel on a cruise ship or to a country the [facility] currently lists as an affected area. Patient denies contact with known and/or suspected case of COVID-19. Ebola Screen: Patient denies travel to an Ebola-affected area in the 21 days before illness onset. Initial Sepsis Screen: Does the patient meet any 2 criteria? No. Patient's initial sepsis screen is negative. Risk Assessment: Do you want to hurt yourself or someone else? Patient reports no desire to harm self or others. Onset of symptoms was 2017. 21:38 Method Of Arrival: Ambulatory ll1 21:38 Acuity: NICOLE 5 ll1 Historical: - Allergies: 21:40 No Known Drug Allergies; ll1 - PMHx: 21:40 Left ventricular hypertrophy; Gout; Anxiety; ll1 - PSHx: 21:40 None; ll1 - Immunization history:: Adult Immunizations up to date. - Social history:: Patient/guardian denies using alcohol, street drugs, tobacco products, Smoking status: unknown. - Family history:: not pertinent. Screenin:43 Abuse screen: Denies threats or abuse. Nutritional screening: No deficits noted. ea Tuberculosis screening: No symptoms or risk factors identified. Fall Risk None identified. Assessment: 21:41 General: Appears in no apparent distress. Behavior is calm, cooperative, appropriate ea for age. Pain: Denies pain. Neuro: Level of Consciousness is awake, alert, obeys commands, Oriented to person, place, time, situation. Cardiovascular: Patient's skin is warm and dry. Respiratory: Airway is patent Respiratory effort is even, unlabored, Respiratory pattern is regular, symmetrical. Derm: Skin is pink, warm \T\ dry. 22:32 Reassessment: Patient and/or family updated on plan of care and expected duration. Pain ea level reassessed. Patient is alert, oriented x 3, equal unlabored respirations, skin warm/dry/pink. Discharge instruction given to patient, verbalized the understanding of instruction. Pt left ED ambulatory tolerating well. Vital Signs: 21:38 BP 137 / 91; Pulse 80; Resp 17; Temp 97.2; Pulse Ox 99% ; Pain 0/10; ll1 ED Course: 21:26 Patient arrived in ED. cf2 21:39 Karo Mejia, RN is Primary Nurse. ea 21:39 Triage completed. ll1 21:40 Arm band placed on Patient placed in an exam room, on a stretcher. 1 21:42 Lonnie Morris MD is Attending Physician. [facility] 21:43 Patient has correct armband on for positive identification. Placed in gown. Bed in low ea position. 22:28 No provider procedures requiring assistance completed. Patient did not have IV access ea during this emergency room visit. Administered Medications: 22:27 Drug: Neosporin Ointment 1 application Route: Topical; Site: affected area; ea 22:28 Follow up: Response: No adverse reaction ea Outcome: 22:25 Discharge ordered by . wendy 22:28 Discharged to home ambulatory. ea 22:28 Condition: stable 22:28 Discharge instructions given to patient, Instructed on discharge instructions, follow up and referral plans. medication usage, Demonstrated understanding of instructions, follow-up care, medications. 22:32 Patient left the ED. mw2 Signatures: Lonnie Morris MD MD cha Antunez, Elena, RN RN Marlon Reed mw2 Mily Sykes cf2 Richard Munoz RN RN ll1 Corrections: (The following items were deleted from the chart) 21:41 21:38 Chief complaint: Patient states: Small spot to right side of neck has been there ll1 since 2017. States the spot turned black today so he came iin. ll1
--- NOTE | 2019-05-25 22:26 | EDPHYS ---
Physician Documentation [facility] Name: He Schmitz Age: 24 yrs Sex: Male : 1995 Arrival Date: 05/25/2019 Time: 21:26 Bed 2 Private MD: ED Physician Lonnie Morris HPI: 05/24 22:20 This 24 yrs old Male presents to ER via Ambulatory with complaints of SWOLLEN wendy NECK in a tiny area, looks black. 22:20 blackhead right side of neck, pt concerned. Onset: The symptoms/episode began/occurred wendy 3 day(s) ago. Severity of symptoms: At their worst the symptoms were mild. The patient has not experienced similar symptoms in the past. Historical: - Allergies: 21:40 No Known Drug Allergies; ll1 - PMHx: 21:40 Left ventricular hypertrophy; Gout; Anxiety; ll1 - PSHx: 21:40 None; ll1 - Immunization history:: Adult Immunizations up to date. - Social history:: Patient/guardian denies using alcohol, street drugs, tobacco products, Smoking status: unknown. - Family history:: not pertinent. ROS: 22:20 Constitutional: Negative for fever, chills, and weight loss, Eyes: Negative for injury, wendy pain, redness, and discharge, ENT: Negative for injury, pain, and discharge, Cardiovascular: Negative for chest pain, palpitations, and edema, Respiratory: Negative for shortness of breath, cough, wheezing, and pleuritic chest pain, Abdomen/GI: Negative for abdominal pain, nausea, vomiting, diarrhea, and constipation, Back: Negative for injury and pain, : Negative for injury, bleeding, discharge, and swelling, MS/Extremity: Negative for injury and deformity, Neuro: Negative for headache, weakness, numbness, tingling, and seizure, Psych: Negative for depression, anxiety, suicide ideation, homicidal ideation, and hallucinations, Allergy/Immunology: Negative for hives, rash, and allergies, Endocrine: Negative for neck swelling, polydipsia, polyuria, polyphagia, and marked weight changes, Hematologic/Lymphatic: Negative for swollen nodes, abnormal bleeding, and unusual bruising. 22:20 Neck: Positive for tenderness. 22:20 Skin: Positive for blackhead, right neck. Exam: 22:20 Constitutional: This is a well developed, well nourished patient who is awake, alert, wendy and in no acute distress. Head/Face: Normocephalic, atraumatic. Eyes: Pupils equal round and reactive to light, extra-ocular motions intact. Lids and lashes normal. Conjunctiva and sclera are non-icteric and not injected. Cornea within normal limits. Periorbital areas with no swelling, redness, or edema. Neck: Trachea midline, no thyromegaly or masses palpated, and no cervical lymphadenopathy. Supple, full range of motion without nuchal rigidity, or vertebral point tenderness. No Meningismus. Chest/axilla: Normal chest wall appearance and motion. Nontender with no deformity. No lesions are appreciated. Cardiovascular: Regular rate and rhythm with a normal S1 and S2. No gallops, murmurs, or rubs. Normal PMI, no JVD. No pulse deficits. Respiratory: Lungs have equal breath sounds bilaterally, clear to auscultation and percussion. No rales, rhonchi or wheezes noted. No increased work of breathing, no retractions or nasal flaring. Abdomen/GI: Soft, non-tender, with normal bowel sounds. No distension or tympany. No guarding or rebound. No evidence of tenderness throughout. Back: No spinal tenderness. No costovertebral tenderness. Full range of motion. Male : Normal genitalia with no discharge or lesions. Skin: Warm, dry with normal turgor. Normal color with no rashes, no lesions, and no evidence of cellulitis. MS/ Extremity: Pulses equal, no cyanosis. Neurovascular intact. Full, normal range of motion. Neuro: Awake and alert, GCS 15, oriented to person, place, time, and situation. Cranial nerves II-XII grossly intact. Motor strength 5/5 in all extremities. Sensory grossly intact. Cerebellar exam normal. Normal gait. Psych: Awake, alert, with orientation to person, place and time. Behavior, mood, and affect are within normal limits. 22:20 ENT: blackhead, firm, not infected. Vital Signs: 21:38 BP 137 / 91; Pulse 80; Resp 17; Temp 97.2; Pulse Ox 99% ; Pain 0/10; ll1 Procedures: 22:26 I \T\ D: Incision and drainage was performed for an abscess of the right right jaw wendy Prepped with alcohol, Anesthetized with nothing. Incised with 18 guage. Drained small amount Dressing: neosporin the patient tolerated the procedure well. MDM: 21:42 Patient medically screened. [facility] 22:23 Data reviewed: vital signs, nurses notes. wendy Administered Medications: 22:27 Drug: Neosporin Ointment 1 application Route: Topical; Site: affected area; eduard 22:28 Follow up: Response: No adverse reaction ea Disposition: 05/25/19 22:25 Discharged to Home. Impression: Sebaceous cyst - blackhead, removed in total. - Condition is Stable. - Discharge Instructions: Epidermal Cyst, [id number], Epidermal Cyst. - Medication Reconciliation Form, Thank You Letter, Antibiotic Education, Prescription Opioid Use form. - Follow up: Private Physician; When: 2 - 3 days; Reason: Recheck today's complaints, Continuance of care, Re-evaluation by your physician. - Problem is new. - Symptoms have improved. Signatures: Lonnie Morris MD MD cha Antunez, Elena RN RN Marlon Reed mw2 Richard Munoz RN RN ll1 Corrections: (The following items were deleted from the chart) 22:32 22:25 05/25/2019 22:25 Discharged to Home. Impression: Sebaceous cyst - blackhead, mw2 removed in total. Condition is Stable. Forms are Medication Reconciliation Form, Thank You Letter, Antibiotic Education, Prescription Opioid Use. Follow up: Private Physician; When: 2 - 3 days; Reason: Recheck today's complaints, Continuance of care, Re-evaluation by your physician. Problem is new. Symptoms have improved. [facility]
[2019-05-25 22:38] VITALS: BP 137/91; TEMP 97.2; O2SAT 99
== END 2019-05-25 22:32 | disposition home or self-care (01) ==
LOC: ER 21:23
PROC: 0J910ZZ Drainage of Face Subcutaneous Tissue and Fascia, Open Approach (ICD-10-PCS; principal; 2019-05-25)
DX: L70.0 Acne vulgaris (principal)
CPT/HCPCS: 99283

== ENCOUNTER 2019-07-04 22:53 | Emergency (ER) | payer SELFPAY ==
[2019-07-04] MEDS ORDERED: CYCLOBENZAPRINE 10 MG TAB ONE (23:50)
[2019-07-05 00:19] LABS: Absolute Lymphocytes (CBC) 2.2 K/uL (0.7-4.9); Basophils % 0.4 % (0-1.3); Lymphocytes % 27.2 % (15.3-44.8); MPV 9.5 fL (7.6-11.3); RBC Red Blood Cell Count 5.16 M/uL (4.33-5.43)
[2019-07-05 00:25] LABS: BUN Blood Urea Nitrogen 13 mg/dL (7-18); Bicarbonate 26 mmol/L (21-32); Glucose Level 106 mg/dL (74-106); Potassium 3.4 mmol/L (3.5-5.1); Sodium Level 139 mmol/L (136-145)
[2019-07-05 00:53] VITALS: TEMP 98.1
[2019-07-05 00:54] VITALS: BP 128/88; O2SAT 99
--- NOTE | 2019-07-10 13:59 | EDPHYS ---
Physician Documentation [facility] Name: He Schmitz Age: 24 yrs Sex: Male : 1995 Arrival Date: 07/04/2019 Time: 22:57 Bed 17 Private MD: ED Physician Camila Kramer HPI: 07/04 00:30 This 24 yrs old Male presents to ER via Ambulatory with complaints of Spasms. pm1 00:30 muscle twitching to jaw, baptism, and behind his ears bilaterally. Onset: The pm1 symptoms/episode began/occurred 1 month(s) ago. Severity of symptoms: in the emergency department the symptoms have resolved Pain is currently a 0 / 10. The patient has not experienced similar symptoms in the past. The patient has been recently seen by a physician: with different complaint(s), and apparently was diagnosed with pneumonia 1 month ago. No cough, fever, or shortness of breath. He reports that his pneumonia has resolved. Historical: - Allergies: 07/03 23:10 No Known Allergies; mg2 - Home Meds: 23:10 None [Active]; mg2 - PMHx: 23:10 Anxiety; Gout; Left ventricular hypertrophy; mg2 - PSHx: 23:10 None; mg2 - Immunization history:: Flu vaccine is not up to date. - Social history:: Smoking status: Patient denies any tobacco usage or history of. Patient/guardian denies using alcohol, street drugs, IV drugs. ROS: 07/04 00:30 Constitutional: Negative for fever, chills, and weight loss, Eyes: Negative for injury, pm1 pain, redness, and discharge, ENT: Negative for injury, pain, and discharge, Neck: Negative for injury, pain, and swelling, Cardiovascular: Negative for chest pain, palpitations, and edema, Respiratory: Negative for shortness of breath, cough, wheezing, and pleuritic chest pain, Abdomen/GI: Negative for abdominal pain, nausea, vomiting, diarrhea, and constipation, Back: Negative for injury and pain, MS/Extremity: Negative for injury and deformity, Skin: Negative for injury, rash, and discoloration, Neuro: Negative for headache, weakness, numbness, tingling, and seizure. Exam: 00:30 Constitutional: This is a well developed, well nourished patient who is awake, alert, pm1 and in no acute distress. Head/Face: Normocephalic, atraumatic. ENT: Nares patent. No nasal discharge, no septal abnormalities noted. Tympanic membranes are normal and external auditory canals are clear. Oropharynx with no redness, swelling, or masses, exudates, or evidence of obstruction, uvula midline. Mucous membranes moist. Neck: Trachea midline, no thyromegaly or masses palpated, and no cervical lymphadenopathy. Supple, full range of motion without nuchal rigidity, or vertebral point tenderness. No Meningismus. Chest/axilla: Normal chest wall appearance and motion. Nontender with no deformity. No lesions are appreciated. Cardiovascular: Regular rate and rhythm with a normal S1 and S2. No gallops, murmurs, or rubs. Normal PMI, no JVD. No pulse deficits. Respiratory: Lungs have equal breath sounds bilaterally, clear to auscultation and percussion. No rales, rhonchi or wheezes noted. No increased work of breathing, no retractions or nasal flaring. Abdomen/GI: Soft, non-tender, with normal bowel sounds. No distension or tympany. No guarding or rebound. No evidence of tenderness throughout. Back: No spinal tenderness. No costovertebral tenderness. Full range of motion. Skin: Warm, dry with normal turgor. Normal color with no rashes, no lesions, and no evidence of cellulitis. MS/ Extremity: Pulses equal, no cyanosis. Neurovascular intact. Full, normal range of motion. Neuro: Awake and alert, GCS 15, oriented to person, place, time, and situation. Cranial nerves II-XII grossly intact. Motor strength 5/5 in all extremities. Sensory grossly intact. Cerebellar exam normal. Normal gait. Vital Signs: 07/03 23:07 BP 135 / 92; Pulse 62; Resp 18; Temp 98.1; Pulse Ox 100% ; Weight 108.86 kg; Height 6 mg2 ft. 3 in. (190.50 cm); 07/04 00:30 BP 128 / 88; Pulse 64; Resp 18; Pulse Ox 99% on R/A; wh 07/03 23:07 Body Mass Index 30.00 (108.86 kg, 190.50 cm) mg2 MDM: 07/03 23:27 Patient medically screened. pm1 07/04 00:28 Data reviewed: vital signs. Data interpreted: Pulse oximetry: on room air is 100 %. pm1 Interpretation: normal. Counseling: I had a detailed discussion with the patient and/or guardian regarding: the historical points, exam findings, and any diagnostic results supporting the discharge/admit diagnosis, lab results, the need for outpatient follow up, to return to the emergency department if symptoms worsen or persist or if there are any questions or concerns that arise at home. 07/03 23:35 Order name: Basic Metabolic Panel; Complete Time: 00:27 pm1 07/03 23:35 Order name: CBC with Diff; Complete Time: 00:27 pm1 07/03 23:35 Order name: IV Saline Lock; Complete Time: 23:52 pm1 07/03 23:35 Order name: Labs collected and sent; Complete Time: 23:52 pm1 Administered Medications: 07/03 23:52 Drug: Flexeril 10 mg Route: PO; 07/04 00:43 Follow up: Response: No adverse reaction Disposition: 06:50 Co-signature as Attending Physician, Camila Kramer MD. ma2 Disposition: 07/05/19 00:28 Discharged to Home. Impression: Other muscle spasm. - Condition is Stable. - Discharge Instructions: Muscle Cramps and Spasms. - Prescriptions for Cyclobenzaprine 10 mg Oral Tablet - take 1 tablet by ORAL route every 8 hours As needed; 30 tablet. - Medication Reconciliation Form, Thank You Letter, Antibiotic Education, Prescription Opioid Use form. - Follow up: Emergency Department; When: As needed; Reason: Worsening of condition. Follow up: Private Physician; When: 2 - 3 days; Reason: Recheck today's complaints, Continuance of care, Re-evaluation by your physician. - Problem is new. - Symptoms have improved. Signatures: Dispatcher [employer] EDMS Avni Tejeda NP ACCESS CLERK pm1 Robert Cruz Camila Kramer MD MD ma2 Chip Martinez RN RN mg2 Corrections: (The following items were deleted from the chart) 00:43 00:28 07/05/2019 00:28 Discharged to Home. Impression: Other muscle spasm. Condition is Stable. Forms are Medication Reconciliation Form, Thank You Letter, Antibiotic Education, Prescription Opioid Use. Follow up: Emergency Department; When: As needed; Reason: Worsening of condition. Follow up: Private Physician; When: 2 - 3 days; Reason: Recheck today's complaints, Continuance of care, Re-evaluation by your physician. Problem is new. Symptoms have improved. pm1
--- NOTE | 2019-07-10 13:59 | ER ---
[facility] Name: He Schmitz Age: 24 yrs Sex: Male : 1995 Arrival Date: 07/04/2019 Time: 22:57 Bed 17 Private MD: Diagnosis: Other muscle spasm Presentation: 07/03 23:07 Chief complaint: Patient states: i feel some twitching in my right adventism radiating to mg2 my jaw and left adventism for a month now. Coronavirus screen: Proceed with normal triage. Patient denies a cough. Patient denies shortness of breath or difficulty breathing. Patient denies measured and/or subjective temperature greater than 100.4F prior to today's visit. Patient denies travel on a cruise ship or to a country the [facility] currently lists as an affected area. Patient denies contact with known and/or suspected case of COVID-19. Ebola Screen: No symptoms or risks identified at this time. Initial Sepsis Screen: Does the patient meet any 2 criteria? No. Patient's initial sepsis screen is negative. Does the patient have a suspected source of infection? No. Patient's initial sepsis screen is negative. Risk Assessment: Do you want to hurt yourself or someone else? Patient reports no desire to harm self or others. Onset of symptoms was May 2019. 23:07 Method Of Arrival: Ambulatory mg2 23:07 Acuity: NICOLE 3 mg2 Historical: - Allergies: 23:10 No Known Allergies; mg2 - Home Meds: 23:10 None [Active]; mg2 - PMHx: 23:10 Anxiety; Gout; Left ventricular hypertrophy; mg2 - PSHx: 23:10 None; mg2 - Immunization history:: Flu vaccine is not up to date. - Social history:: Smoking status: Patient denies any tobacco usage or history of. Patient/guardian denies using alcohol, street drugs, IV drugs. Screenin:53 Abuse screen: Denies threats or abuse. Denies injuries from another. Nutritional wh screening: No deficits noted. Tuberculosis screening: No symptoms or risk factors identified. Fall Risk None identified. Assessment: 23:20 General: Appears in no apparent distress. Behavior is calm, cooperative, appropriate wh for age. Pain: Denies pain. Neuro: Level of Consciousness is awake, alert, obeys commands, Oriented to person, place, time, situation, Appropriate for age Reports muscle twitching in neck and jaw. Cardiovascular: Heart tones S1 S2. Respiratory: Airway is patent Respiratory effort is even, unlabored, Respiratory pattern is regular, symmetrical. Respiratory: Breath sounds are clear bilaterally. GI: Abdomen is flat, non-distended. : No signs and/or symptoms were reported regarding the genitourinary system. EENT: Throat is pink. Derm: Skin is intact, is healthy with good turgor, Skin is pink, warm \T\ dry. normal. Musculoskeletal: Circulation, motion, and sensation intact. 07/04 00:41 Reassessment: Patient appears in no apparent distress at this time. No changes from previously documented assessment. Patient and/or family updated on plan of care and expected duration. Pain level reassessed. Patient is alert, oriented x 3, equal unlabored respirations, skin warm/dry/pink. Vital Signs: 07/03 23:07 BP 135 / 92; Pulse 62; Resp 18; Temp 98.1; Pulse Ox 100% ; Weight 108.86 kg; Height 6 mg2 ft. 3 in. (190.50 cm); 07/04 00:30 BP 128 / 88; Pulse 64; Resp 18; Pulse Ox 99% on R/A; 07/03 23:07 Body Mass Index 30.00 (108.86 kg, 190.50 cm) [facility] [place]: 07/03 22:57 Patient arrived in ED. cl3 23:09 Triage completed. mg2 23:10 Arm band placed on. mg2 23:13 Avni Tejeda NP is PHCP. pm1 23:13 Camila Kramer MD is Attending Physician. pm1 23:50 Inserted saline lock: 20 gauge in right antecubital area, using aseptic technique. Blood collected. 23:51 Robert Cruz is Primary Nurse. wh 23:53 Patient has correct armband on for positive identification. Bed in low position. Call light in reach. Side rails up X 1. Pulse ox on. NIBP on. 07/04 00:42 No provider procedures requiring assistance completed. IV discontinued, intact, wh bleeding controlled, No redness/swelling at site. Administered Medications: 07/03 23:52 Drug: Flexeril 10 mg Route: PO; 07/04 00:43 Follow up: Response: No adverse reaction Outcome: 00:28 Discharge ordered by . pm1 00:42 Discharged to home ambulatory. 00:42 Condition: stable 00:42 Discharge instructions given to patient, Instructed on discharge instructions, follow up and referral plans. medication usage, POC Demonstrated understanding of instructions, follow-up care, medications, POC Prescriptions given X 1. 00:43 Patient left the ED. Signatures: Avni Tejeda NP [employer] pm1 Robert Cruz Chip Martinez RN RN mg2 Manpreet Munoz cl3 Corrections: (The following items were deleted from the chart) 07/03 23:51 23:07 Acuity: NICOLE 4 mg2 mg2
== END 2019-07-05 00:43 | disposition home or self-care (01) ==
LOC: ER 22:53
DX: M62.838 Other muscle spasm (principal)
CPT/HCPCS: 36415; 80048; 85025; 99284

== ENCOUNTER 2019-12-24 22:15 | Emergency (ER) | payer SELFPAY ==
[2019-12-24] MEDS ORDERED: ACETAMINOPHEN 500 MG TAB ONE (22:49)
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
--- NOTE | 2019-12-25 01:22 | ER ---
Nurse's Notes [facility] Name: He Schmitz Age: 24 yrs Sex: Male : 1995 Arrival Date: 12/24/2019 Time: 22:18 Bed 6 Private MD: Diagnosis: Head Injury, Contusion Presentation: 12/23 22:23 Chief complaint: Patient states: I fell from a standing position and hit the back of my sg head on a hard surface, pt denies LOC, denies near syncope, just stated that he fell while standing. Coronavirus screen: Client denies travel out of the [place] in the last 14 days. At this time, the client does not indicate any symptoms associated with coronavirus-19. Ebola Screen: Patient negative for fever greater than or equal to 101.5 degrees Fahrenheit, and additional compatible Ebola Virus Disease symptoms Patient denies exposure to infectious person. Patient denies travel to an Ebola-affected area in the 21 days before illness onset. No symptoms or risks identified at this time. Initial Sepsis Screen: Does the patient meet any 2 criteria? No. Patient's initial sepsis screen is negative. Does the patient have a suspected source of infection? No. Patient's initial sepsis screen is negative. Risk Assessment: Do you want to hurt yourself or someone else? Patient reports no desire to harm self or others. Onset of symptoms was December 24, 2019. Care prior to arrival: None. Mechanism of Injury: Fall from standing position. Transition of care: patient was not received from another setting of care. 22:23 Method Of Arrival: Ambulatory sg 22:23 Acuity: NICOLE 3 sg Historical: - Allergies: 22:24 No Known Allergies; sg - PMHx: 22:24 Anxiety; Gout; Left ventricular hypertrophy; sg - PSHx: 22:24 None; sg - Immunization history:: Adult Immunizations up to date. - Social history:: Smoking status: Patient denies any tobacco usage or history of. Screenin:35 Abuse screen: Denies threats or abuse. Denies injuries from another. Nutritional lp1 screening: No deficits noted. Tuberculosis screening: No symptoms or risk factors identified. Fall Risk None identified. Assessment: 22:33 General: Appears in no apparent distress. Behavior is cooperative. Pain: Complains of lp1 pain in forehead Pain currently is 1 out of 10 on a pain scale. Quality of pain is described as aching. Neuro: Level of Consciousness is awake, alert, obeys commands, Oriented to person, place, time, situation, Reports headache Denies blurred vision dizziness, photophobia. Cardiovascular: Patient's skin is warm and dry. Respiratory: Respiratory effort is even, unlabored. GI: No signs and/or symptoms were reported involving the gastrointestinal system. : No signs and/or symptoms were reported regarding the genitourinary system. EENT: No signs and/or symptoms were reported regarding the EENT system. Derm: Skin is pink, warm \T\ dry. Musculoskeletal: No deficits noted. 23:15 Reassessment: Patient appears in no apparent distress at this time. Patient is alert, lp1 oriented x 3, equal unlabored respirations, skin warm/dry/pink. Patient returned from CT at this time. 23:17 Reassessment: patient returned from CT. mg2 12/24 01:19 Reassessment: Patient appears in no apparent distress at this time. Patient and/or mg2 family updated on plan of care and expected duration. Pain level reassessed. Patient is alert, oriented x 3, equal unlabored respirations, skin warm/dry/pink. Vital Signs: 12/23 22:24 Weight 108.86 kg; Height 6 ft. 0 in. (182.88 cm); sg 22:35 BP 142 / 93; Pulse 96; Resp 18; Temp 97.3(TE); Pulse Ox 98% on R/A; lp1 12/24 01:27 BP 130 / 76; Pulse 78; Resp 18; Temp 98; Pulse Ox 100% on R/A; mg2 12/23 22:24 Body Mass Index 32.55 (108.86 kg, 182.88 cm) sg Madison Coma Score: 12/23 22:40 Eye Response: spontaneous(4). Verbal Response: oriented(5). Motor Response: obeys mh7 commands(6). Total: 15. 12/24 01:19 Eye Response: spontaneous(4). Verbal Response: oriented(5). Motor Response: obeys mh7 commands(6). Total: 15. ED Course: 12/23 22:18 Patient arrived in ED. ds1 22:23 Nicholas Olivares MD is Attending Physician. mh7 22:23 Arm band placed on. sg 22:24 Triage completed. sg 22:33 Dianelys Hills, RN is Primary Nurse. lp1 22:35 Patient has correct armband on for positive identification. lp1 23:17 No provider procedures requiring assistance completed. Patient did not have IV access mg2 during this emergency room visit. 23:36 CT Head Brain wo Cont In Process Unspecified. EDMS Administered Medications: 22:36 Drug: Tylenol 1000 mg Route: PO; lp1 23:17 Follow up: Response: No adverse reaction mg2 Outcome: 12/24 01:21 Discharge ordered by . [facility] 01:28 Discharged to home ambulatory. mg2 01:28 Condition: stable 01:28 Discharge instructions given to patient, Instructed on discharge instructions, follow up and referral plans. Demonstrated understanding of instructions, follow-up care. 01:28 Patient left the ED. mg2 Signatures: Dispatcher [employer] EDMS Ethan Martino RN RN GlezYulia ds1 Dianelys Hills RN RN 1 Chip Martinez RN RN mg2 Nicholas Olivares MD MD [facility]
[2019-12-25 03:11] VITALS: BP 130/76; TEMP 98; O2SAT 100
--- NOTE | 2019-12-25 10:14 | RAD REPORT ---
EXAM DESCRIPTION: CT - Head Brain Wo Cont - 12/25/2019 3:37 am CLINICAL HISTORY: 24 years Male TRAUMA TECHNIQUE: Contiguous axial CT images obtained through the brain without IV contrast. Coronal and sa gittal reformatted images also provided. This CT exam was performed according to our departmental dose-optimization program, which includes on e or more of the following dose reduction techniques: automated exposure control, adjustment of the m A and/or kV according to patient size, and/or use of iterative reconstruction technique. COMPARISON: No prior exams provided for comparison. FINDINGS: There is no acute skull fracture, intracranial hemorrhage, extra-axial collection, or acut e transcortical infarction. The ventricles are normal in size and contour without mass effect or midl ine shift. The visualized paranasal sinuses, tympanomastoid cavities, and orbits are normal. IMPRESSION: No acute intracranial injury. Electronically signed by: Afia Stern MD 12/24/2019 11:42 PM LOG CLERK Due to temporary technical issues with the PACS/Fluency reporting system, reports are being signed by the in house radiologist without review as a courtesy to ensure prompt reporting. The interpreting r adiologist is fully responsible for the content of the report.
== END 2019-12-25 01:28 | disposition home or self-care (01) ==
LOC: ER 22:15
DX: S00.93XA Contusion of unspecified part of head, initial encounter (principal); W51.XXXA Accidental striking against or bumped into by another person, initial encounter; Y93.9 Activity, unspecified; Y92.009 Unspecified place in unspecified non-institutional (private) residence as the place of occurrence of the external cause
CPT/HCPCS: 70450; 99283

== ENCOUNTER 2020-02-07 13:38 | Emergency (ER) | payer SELFPAY ==
--- NOTE | 2020-02-07 14:46 | RAD REPORT ---
EXAM DESCRIPTION: RAD - Chest Pa And Lat (2 Views) - 02/07/2020 2:27 pm CLINICAL HISTORY: CHEST PAIN Chest pain. COMPARISON: Chest Pa And Lat (2 Views) dated 04/28/2019; Chest Pa And Lat (2 Views) dated 02/09/2019 FINDINGS: The lungs are clear. The heart is normal in size. No displaced fractures. IMPRESSION: No acute or concerning finding suspected.
--- NOTE | 2020-02-07 16:45 | ER ---
Nurse's Notes [facility] Name: He Schmitz Age: 24 yrs Sex: Male : 1995 Arrival Date: 02/07/2020 Time: 13:39 Bed 20 Private MD: Diagnosis: Streptococcal pharyngitis Presentation: 02/06 13:57 Chief complaint: Patient states: woke up around 1100 today and felt like lungs were dm5 burning. States he has had a "salty dryness" in throat for about a month. pain rated at 2/10. Coronavirus screen: Client denies travel out of the [place] in the last 14 days. sore throat, Client presents with at least one sign or symptom that may indicate coronavirus-19. Standard/surgical mask placed on the client. Ebola Screen: Patient negative for fever greater than or equal to 101.5 degrees Fahrenheit, and additional compatible Ebola Virus Disease symptoms Patient denies exposure to infectious person. Patient denies travel to an Ebola-affected area in the 21 days before illness onset. No symptoms or risks identified at this time. Initial Sepsis Screen: Does the patient meet any 2 criteria? No. Patient's initial sepsis screen is negative. Does the patient have a suspected source of infection? No. Patient's initial sepsis screen is negative. Risk Assessment: Do you want to hurt yourself or someone else? Patient reports no desire to harm self or others. Onset of symptoms was February 07, 2020. 13:57 Method Of Arrival: Ambulatory dm5 13:57 Acuity: NICOLE 3 dm5 Historical: - Allergies: 14:00 No Known Allergies; dm5 - Home Meds: 14:00 None [Active]; dm5 - PMHx: 14:00 Anxiety; Gout; Left ventricular hypertrophy; dm5 - PSHx: 14:00 None; dm5 - Immunization history:: Adult Immunizations not up to date. - Social history:: Smoking status: Patient denies any tobacco usage or history of. Screenin:07 Abuse screen: Denies threats or abuse. Denies injuries from another. Nutritional iw screening: No deficits noted. Tuberculosis screening: No symptoms or risk factors identified. Fall Risk None identified. Assessment: 16:07 General: Appears in no apparent distress. Behavior is calm, cooperative. Pain: iw Complains of pain in throat. Neuro: Level of Consciousness is awake, alert, obeys commands, Oriented to person, place, time, situation, Moves all extremities. Respiratory: Airway is patent Respiratory effort is even, unlabored, Breath sounds are clear bilaterally. EENT: Throat is reddened bilaterally. Derm: Skin is intact, is healthy with good turgor. Musculoskeletal: Range of motion: intact in all extremities. 17:00 Reassessment: Patient appears in no apparent distress at this time. Patient and/or iw family updated on plan of care and expected duration. Pain level reassessed. Patient is alert, oriented x 3, equal unlabored respirations, skin warm/dry/pink. Vital Signs: 13:57 BP 142 / 85; Pulse 71; Resp 20; Temp 98.1; Pulse Ox 98% on R/A; Weight 108.86 kg; dm5 Height 6 ft. 2 in. (187.96 cm); Pain 2/10; 13:57 Body Mass Index 30.81 (108.86 kg, 187.96 cm) dm5 ED Course: 13:39 Patient arrived in ED. ag5 13:59 Triage completed. dm5 14:14 [facility] Walden FNP-C [facility]. snw 14:14 Maksim Blackman MD is Attending Physician. snw 14:23 Chest Pa And Lat (2 Views) XRAY In Process Unspecified. EDMS 16:06 Shireen Santiago, RN is Primary Nurse. iw 16:08 Patient has correct armband on for positive identification. iw 16:15 Arm band placed on. iw 17:51 No provider procedures requiring assistance completed. Patient did not have IV access iw during this emergency room visit. Administered Medications: 17:35 Drug: Bicillin L-A 1.2 million units Route: IM; Site: right ventrogluteal; iw Outcome: 16:45 Discharge ordered by MD. snw 17:51 Discharged to home ambulatory. iw 17:51 Condition: good 17:51 Discharge instructions given to patient, Instructed on discharge instructions, follow up and referral plans. Demonstrated understanding of instructions, follow-up care. 17:52 Patient left the ED. iw Addendum: 02/12/2020 10:53 Addendum: COVID-19 Result: Negative result given to RN to notify pt. Left voice mail. d m5 11:00 Addendum: COVID-19 Result: Negative result given to RN to notify pt. Notified pt of d m5 negative COVID 19 swab results. Pt advised that even with a negative test result they should remain in isolation until symptom free for 3 days without medication. Pt also advised to return to the ED for worsening symptoms. Signatures: Dispatcher [employer] Latha Navas RN RN dm5 Tracee Walden, FILER REPAIRER-C FILER REPAIRER-Csnw Shireen Santiago RN RN John Eng 5
--- NOTE | 2020-02-07 16:45 | EDPHYS ---
Physician Documentation [facility] Name: He Schmitz Age: 24 yrs Sex: Male : 1995 Arrival Date: 02/07/2020 Time: 13:39 Bed 20 Private MD: ED Physician Maksim Blackman HPI: 02/06 19:01 This 24 yrs old Male presents to ER via Ambulatory with complaints of Sore snw Throat, Chest Pressure. 19:01 The patient presents with sore throat. The patient describes throat pain as burning. snw Onset: The symptoms/episode began/occurred gradually, 1 week(s) ago, and became persistent. Severity of symptoms: At their worst the symptoms were moderate. Associated signs and symptoms: The patient has no apparent associated signs or symptoms. It is unknown whether or not the patient has had similar symptoms in the past. The patient has not recently seen a physician. Historical: - Allergies: 14:00 No Known Allergies; dm5 - Home Meds: 14:00 None [Active]; dm5 - PMHx: 14:00 Anxiety; Gout; Left ventricular hypertrophy; dm5 - PSHx: 14:00 None; dm5 - Immunization history:: Adult Immunizations not up to date. - Social history:: Smoking status: Patient denies any tobacco usage or history of. ROS: 18:59 Constitutional: Negative for fever, chills, and weight loss, Eyes: Negative for injury, snw pain, redness, and discharge, Neck: Negative for injury, pain, and swelling, Respiratory: Negative for shortness of breath, cough, wheezing, and pleuritic chest pain, Abdomen/GI: Negative for abdominal pain, nausea, vomiting, diarrhea, and constipation, Back: Negative for injury and pain, : Negative for injury, bleeding, discharge, and swelling, MS/Extremity: Negative for injury and deformity, Skin: Negative for injury, rash, and discoloration, Neuro: Negative for headache, weakness, numbness, tingling, and seizure, Psych: Negative for depression, anxiety, suicide ideation, homicidal ideation, and hallucinations. 18:59 ENT: Positive for ear pain, sore throat. 18:59 Cardiovascular: Positive for chest pain, burning. Exam: 16:48 Constitutional: This is a well developed, well nourished patient who is awake, alert, snw and in no acute distress. Head/Face: Normocephalic, atraumatic. Eyes: Pupils equal round and reactive to light, extra-ocular motions intact. Lids and lashes normal. Conjunctiva and sclera are non-icteric and not injected. Cornea within normal limits. Periorbital areas with no swelling, redness, or edema. Neck: Trachea midline, no thyromegaly or masses palpated, and no cervical lymphadenopathy. Supple, full range of motion without nuchal rigidity, or vertebral point tenderness. No Meningismus. Chest/axilla: Normal chest wall appearance and motion. Nontender with no deformity. No lesions are appreciated. Cardiovascular: Regular rate and rhythm with a normal S1 and S2. No gallops, murmurs, or rubs. Normal PMI, no JVD. No pulse deficits. Respiratory: Lungs have equal breath sounds bilaterally, clear to auscultation and percussion. No rales, rhonchi or wheezes noted. No increased work of breathing, no retractions or nasal flaring. Abdomen/GI: Soft, non-tender, with normal bowel sounds. No distension or tympany. No guarding or rebound. No evidence of tenderness throughout. Back: No spinal tenderness. No costovertebral tenderness. Full range of motion. Skin: Warm, dry with normal turgor. Normal color with no rashes, no lesions, and no evidence of cellulitis. MS/ Extremity: Pulses equal, no cyanosis. Neurovascular intact. Full, normal range of motion. Neuro: Awake and alert, GCS 15, oriented to person, place, time, and situation. Cranial nerves II-XII grossly intact. Motor strength 5/5 in all extremities. Sensory grossly intact. Cerebellar exam normal. Normal gait. Psych: Awake, alert, with orientation to person, place and time. Behavior, mood, and affect are within normal limits. 16:48 ENT: TM's: are normal, Posterior pharynx: Tonsils: enlarged on the right, with erythema. 16:48 Cardiovascular: Exam negative for acute changes. Vital Signs: 13:57 BP 142 / 85; Pulse 71; Resp 20; Temp 98.1; Pulse Ox 98% on R/A; Weight 108.86 kg; dm5 Height 6 ft. 2 in. (187.96 cm); Pain 2/10; 13:57 Body Mass Index 30.81 (108.86 kg, 187.96 cm) dm5 MDM: 15:31 Patient medically screened. snw 19:00 Data reviewed: vital signs, nurses notes. Data interpreted: Pulse oximetry: on room air snw is 98 %. Interpretation: normal. Counseling: I had a detailed discussion with the patient and/or guardian regarding: the historical points, exam findings, and any diagnostic results supporting the discharge/admit diagnosis, the presence of at least one elevated blood pressure reading (>120/80) during this emergency department visit, lab results, radiology results, the need for outpatient follow up, to return to the emergency department if symptoms worsen or persist or if there are any questions or concerns that arise at home. 02/06 14:55 Order name: Flu; Complete Time: 16:42 snw 02/06 14:55 Order name: Strep; Complete Time: 16:42 snw 02/06 14:11 Order name: Chest Pa And Lat (2 Views) XRAY; Complete Time: 14:54 kb 02/06 14:55 Order name: COVID-19 snw Administered Medications: 17:35 Drug: Bicillin L-A 1.2 million units Route: IM; Site: right ventrogluteal; iw Disposition: 18:08 Co-signature as Attending Physician, Maksim Blackman MD I agree with the assessment and kdr plan of care. Disposition: 02/07/20 16:45 Discharged to Home. Impression: Streptococcal pharyngitis. - Condition is Stable. - Discharge Instructions: Fever, Adult, Sore Throat, Strep Throat, Rehydration, Adult. - Prescriptions for promethazine 25 mg Oral Tablet - take 1 tablet by ORAL route every 6 hours As needed; 20 tablet. - Work release form, Medication Reconciliation Form, Thank You Letter, Antibiotic Education, Prescription Opioid Use form. - Follow up: Emergency Department; When: As needed; Reason: Worsening of condition. Follow up: Private Physician; When: 2 - 3 days; Reason: Recheck today's complaints, Continuance of care, Re-evaluation by your physician. Signatures: Dispatcher [employer] Latha Navas RN RN dmMaksim Espinal MD MD kdr Waters, Shelly, ESTHETIC DERMATOLOGIST-C ESTHETIC DERMATOLOGIST-Csnw Jack, Shireen, RN RN iw Corrections: (The following items were deleted from the chart) 17:52 16:45 02/07/2020 16:45 Discharged to Home. Impression: Streptococcal pharyngitis. iw Condition is Stable. Forms are Medication Reconciliation Form, Thank You Letter, Antibiotic Education, Prescription Opioid Use. Follow up: Emergency Department; When: As needed; Reason: Worsening of condition. Follow up: Private Physician; When: 2 - 3 days; Reason: Recheck today's complaints, Continuance of care, Re-evaluation by your physician. snw
[2020-02-07] MEDS ORDERED: PEN G BENZ LA 1.2MU/2ML SYRINGE IM ONE (17:33)
[2020-02-07 17:59] VITALS: BP 142/85; TEMP 98.1; O2SAT 98
== END 2020-02-07 17:52 | disposition home or self-care (01) ==
LOC: ER 13:38
DX: J02.0 Streptococcal pharyngitis (principal); Z20.828 Contact with and (suspected) exposure to other viral communicable diseases
CPT/HCPCS: 71046; 87081; 87804; 96372; 99283; J0561; U0002

== ENCOUNTER 2020-07-13 10:59 | Emergency (ER) | payer SELFPAY ==
--- NOTE | 2020-07-13 13:23 | ER ---
Nurse's Notes [facility] Name: He Schmitz Age: 25 yrs Sex: Male : 1995 Arrival Date: 07/13/2020 Time: 11:02 Bed 12 Private MD: Diagnosis: Abrasion of left ear Presentation: 07/13 11:25 Chief complaint: Patient states: "I noticed blood coming out of my left ear, it wasn't aa5 a lot but it worried me". Pt denies pain to left ear. Denies known injury. Coronavirus screen: At this time, the client does not indicate any symptoms associated with coronavirus-19. Ebola Screen: Patient negative for fever greater than or equal to 101.5 degrees Fahrenheit, and additional compatible Ebola Virus Disease symptoms. Initial Sepsis Screen: Does the patient meet any 2 criteria? No. Patient's initial sepsis screen is negative. Does the patient have a suspected source of infection? No. Patient's initial sepsis screen is negative. Risk Assessment: Do you want to hurt yourself or someone else? Patient reports no desire to harm self or others. Onset of symptoms was July 13, 2020. 11:25 Acuity: NICOLE 5 aa5 11:25 Method Of Arrival: Ambulatory aa5 Historical: - Allergies: 11:27 No Known Allergies; aa5 - PMHx: 11:27 Anxiety; Gout; Left ventricular hypertrophy; aa5 - PSHx: 11:27 None; aa5 - Immunization history:: Adult Immunizations unknown. - Social history:: Smoking status: Patient denies any tobacco usage or history of. Screenin:30 Abuse screen: Denies threats or abuse. Nutritional screening: No deficits noted. aa5 Tuberculosis screening: No symptoms or risk factors identified. Fall Risk None identified. Assessment: 12:30 General: Appears comfortable, Behavior is calm, cooperative. Pain: Denies pain. Neuro: aa5 Level of Consciousness is awake, alert, obeys commands, Oriented to person, place, time, situation. Cardiovascular: Patient's skin is warm and dry. Respiratory: Airway is patent Respiratory effort is even, unlabored, Respiratory pattern is regular, symmetrical. GI: No signs and/or symptoms were reported involving the gastrointestinal system. : No signs and/or symptoms were reported regarding the genitourinary system. EENT: mild amount of dry blood noted to left outer ear canal. . Derm: Skin is pink, warm \\T\\ dry. Musculoskeletal: Range of motion: intact in all extremities. 13:50 Reassessment: Patient is alert, oriented x 3, equal unlabored respirations, skin aa5 warm/dry/pink. Left ear cleaned with saline and gauze, pt tolerated well. . 13:55 Reassessment: Patient is alert, oriented x 3, equal unlabored respirations, skin aa5 warm/dry/pink. Vital Signs: 11:25 BP 136 / 83; Pulse 80; Resp 16 S; Temp 98.7(TE); Pulse Ox 98% on R/A; Weight 108.86 kg aa5 (R); Height 6 ft. 2 in. (187.96 cm) (R); 11:25 Body Mass Index 30.81 (108.86 kg, 187.96 cm) aa5 ED Course: 11:02 Patient arrived in ED. mr 11:25 Arm band placed on. aa5 11:25 Patient has correct armband on for positive identification. aa5 11:26 Triage completed. aa5 12:26 Lonnie Morris MD is Attending Physician. [facility] 13:24 Jannet Deluna, LUIS CARLOS is Primary Nurse. 13:55 No provider procedures requiring assistance completed. Patient did not have IV access aa5 during this emergency room visit. Administered Medications: No medications were administered Outcome: 13:22 Discharge ordered by . [facility] 13:55 Discharged to home ambulatory. aa5 13:55 Condition: good 13:55 Discharge instructions given to patient, Instructed on discharge instructions, follow up and referral plans. Demonstrated understanding of instructions, follow-up care. 13:57 Patient left the ED. aa5 Signatures: Lonnie Morris MD MD cha Rivera, Mary mr SerraLissette RN RN aa5 Jannet Deluna, LUIS CARLOS RN ss
--- NOTE | 2020-07-13 13:24 | EDPHYS ---
Physician Documentation [facility] Name: He Schmitz Age: 25 yrs Sex: Male : 1995 Arrival Date: 07/13/2020 Time: 11:02 Bed 12 Private MD: ED Physician Lonnie Morris HPI: 07/13 13:18 This 25 yrs old Male presents to ER via Ambulatory with complaints of wendy Drainage From Ear. 13:18 The patient presents with an abrasion. The complaints affect the left ear. Onset: The wendy symptoms/episode began/occurred just prior to arrival, this morning. Modifying factors: The symptoms are alleviated by nothing, the symptoms are aggravated by nothing. Associated signs and symptoms: The patient has no apparent associated signs or symptoms. Severity of symptoms: At their worst the symptoms were mild in the emergency department the symptoms are unchanged. The patient has not experienced similar symptoms in the past. Historical: - Allergies: 11: No Known Allergies; aa5 - PMHx: : Anxiety; Gout; Left ventricular hypertrophy; aa5 - PSHx: 11: None; aa5 - Immunization history:: Adult Immunizations unknown. - Social history:: Smoking status: Patient denies any tobacco usage or history of. ROS: 13:19 Constitutional: Negative for fever, chills, and weight loss, Eyes: Negative for injury, wendy pain, redness, and discharge, Neck: Negative for injury, pain, and swelling, Cardiovascular: Negative for chest pain, palpitations, and edema, Respiratory: Negative for shortness of breath, cough, wheezing, and pleuritic chest pain, Abdomen/GI: Negative for abdominal pain, nausea, vomiting, diarrhea, and constipation, Back: Negative for injury and pain, : Negative for injury, bleeding, discharge, and swelling, MS/Extremity: Negative for injury and deformity, Skin: Negative for injury, rash, and discoloration, Neuro: Negative for headache, weakness, numbness, tingling, and seizure, Psych: Negative for depression, anxiety, suicide ideation, homicidal ideation, and hallucinations, Allergy/Immunology: Negative for hives, rash, and allergies, Endocrine: Negative for neck swelling, polydipsia, polyuria, polyphagia, and marked weight changes. 13:19 ENT: Positive for of the left ear. Exam: 13:19 Constitutional: This is a well developed, well nourished patient who is awake, alert, wendy and in no acute distress. Head/Face: Normocephalic, atraumatic. Eyes: Pupils equal round and reactive to light, extra-ocular motions intact. Lids and lashes normal. Conjunctiva and sclera are non-icteric and not injected. Cornea within normal limits. Periorbital areas with no swelling, redness, or edema. ENT: Nares patent. No nasal discharge, no septal abnormalities noted. Tympanic membranes are normal and external auditory canals are clear. Oropharynx with no redness, swelling, or masses, exudates, or evidence of obstruction, uvula midline. Mucous membranes moist. Neck: Trachea midline, no thyromegaly or masses palpated, and no cervical lymphadenopathy. Supple, full range of motion without nuchal rigidity, or vertebral point tenderness. No Meningismus. Chest/axilla: Normal chest wall appearance and motion. Nontender with no deformity. No lesions are appreciated. Cardiovascular: Regular rate and rhythm with a normal S1 and S2. No gallops, murmurs, or rubs. Normal PMI, no JVD. No pulse deficits. Respiratory: Lungs have equal breath sounds bilaterally, clear to auscultation and percussion. No rales, rhonchi or wheezes noted. No increased work of breathing, no retractions or nasal flaring. Abdomen/GI: Soft, non-tender, with normal bowel sounds. No distension or tympany. No guarding or rebound. No evidence of tenderness throughout. Back: No spinal tenderness. No costovertebral tenderness. Full range of motion. Male : Normal genitalia with no discharge or lesions. MS/ Extremity: Pulses equal, no cyanosis. Neurovascular intact. Full, normal range of motion. Neuro: Awake and alert, GCS 15, oriented to person, place, time, and situation. Cranial nerves II-XII grossly intact. Motor strength 5/5 in all extremities. Sensory grossly intact. Cerebellar exam normal. Normal gait. Psych: Awake, alert, with orientation to person, place and time. Behavior, mood, and affect are within normal limits. 13:19 Skin: injury, abrasion(s), very small abrasion noted, of the left ear. Vital Signs: 11:25 BP 136 / 83; Pulse 80; Resp 16 S; Temp 98.7(TE); Pulse Ox 98% on R/A; Weight 108.86 kg aa5 (R); Height 6 ft. 2 in. (187.96 cm) (R); 11:25 Body Mass Index 30.81 (108.86 kg, 187.96 cm) aa5 MDM: 12:26 Patient medically screened. [facility] 13:21 Data reviewed: vital signs, nurses notes. [facility] 07/13 13:18 Order name: [facility]. Order: clean left ear, saline guaze; Complete Time: 13:54 [facility] Administered Medications: No medications were administered Disposition: 07/13/20 13:22 Discharged to Home. Impression: Abrasion of left ear. - Condition is Stable. - Discharge Instructions: Abrasion, Abrasion, [id number]. - Medication Reconciliation Form, Thank You Letter, Antibiotic Education, Prescription Opioid Use, Work release form form. - Follow up: Private Physician; When: 2 - 3 days; Reason: Recheck today's complaints, Continuance of care, Re-evaluation by your physician. - Problem is new. - Symptoms have improved. Signatures: Lonnie Morris MD MD cha Calderon, Audri, RN RN aa5 Corrections: (The following items were deleted from the chart) 13:57 13:22 07/13/2020 13:22 Discharged to Home. Impression: Abrasion of left ear. Condition aa5 is Stable. Forms are Medication Reconciliation Form, Thank You Letter, Antibiotic Education, Prescription Opioid Use. Follow up: Private Physician; When: 2 - 3 days; Reason: Recheck today's complaints, Continuance of care, Re-evaluation by your physician. Problem is new. Symptoms have improved. [facility]
[2020-07-13 14:15] VITALS: BP 136/83; TEMP 98.7; O2SAT 98
== END 2020-07-13 13:57 | disposition home or self-care (01) ==
LOC: ER 10:59
DX: S00.412A Abrasion of left ear, initial encounter (principal)
CPT/HCPCS: 99281

== ENCOUNTER 2020-07-19 23:46 | Emergency (ER) | payer SELFPAY ==
[2020-07-20 00:49] LABS: Absolute Lymphocytes (CBC) 2.8 K/uL (0.7-4.9); Hematocrit 44.8 % (39.6-49.0); Lymphocytes % 28.7 % (15.3-44.8); MPV 9.1 fL (7.6-11.3); RBC Red Blood Cell Count 5.31 M/uL (4.33-5.43)
[2020-07-20 01:03] LABS: Protime INR 0.99
[2020-07-20] MEDS ORDERED: LORazepam 2 MG/ML VIAL ONE (01:06)
[2020-07-20 01:15] LABS: Urine Blood Negative (Negative); Urine Glucose Negative (Negative); Urine Protein 1+ (Negative); Urine Specific Gravity >=1.030 (1.005-1.030)
[2020-07-20 01:16] LABS: ALT/SGPT 61 U/L (12-78); AST/SGOT 29 U/L (15-37); Albumin 3.9 g/dL (3.4-5.0); Alkaline Phosphatase 63 U/L (45-117); BUN Blood Urea Nitrogen 14 mg/dL (7-18); Bicarbonate 25 mmol/L (21-32); Bilirubin Direct < 0.1 mg/dL (0-0.2); Bilirubin Total 0.3 mg/dL (0.2-1.0); Glucose Level 127 mg/dL (74-106); Potassium 3.8 mmol/L (3.5-5.1); Protein, Total 8.2 g/dL (6.4-8.2); Sodium Level 142 mmol/L (136-145)
[2020-07-20 01:42] LABS: Barbiturates NEGATIVE (NEGATIVE); Benzodiazepines NEGATIVE (NEGATIVE); Cocaine NEGATIVE (NEGATIVE); METHAMPHETAM NEGATIVE (NEGATIVE); Methadone NEGATIVE (NEGATIVE); Opiates NEGATIVE (NEGATIVE); Phencyclidine NEGATIVE (NEGATIVE); THC Cannibis NEGATIVE (NEGATIVE)
--- NOTE | 2020-07-20 14:17 | ER ---
Nurse's Notes [facility] Name: He Schmitz Age: 25 yrs Sex: Male : 1995 Arrival Date: 07/19/2020 Time: 23:50 Bed 5 Private MD: Diagnosis: Encounter for general psychiatric examination, requested by authority Presentation: 07/20 00:06 Chief complaint: Parent and/or Guardian states: has had mental problems since young, pt em does not known if he is SI/HI, called the crisis line and was told to come to the ED, hx of bipolar, "my mind is breaking feels like I'm going to have a mental breakdown". Coronavirus screen: Client denies travel out of the [place] in the last 14 days. Ebola Screen: Patient negative for fever greater than or equal to 101.5 degrees Fahrenheit, and additional compatible Ebola Virus Disease symptoms Patient denies exposure to infectious person. Patient denies travel to an Ebola-affected area in the 21 days before illness onset. No symptoms or risks identified at this time. Initial Sepsis Screen: Does the patient meet any 2 criteria? No. Patient's initial sepsis screen is negative. Does the patient have a suspected source of infection? No. Patient's initial sepsis screen is negative. Risk Assessment: Do you want to hurt yourself or someone else? Patient reports no desire to harm self or others. Onset of symptoms was July 20, 2020. 00:06 Method Of Arrival: Ambulatory em 00:06 Acuity: NICOLE 2 em Historical: - Allergies: 00:12 No Known Allergies; em - PMHx: 00:12 Anxiety; Gout; Left ventricular hypertrophy; em - PSHx: 00:12 None; em - Immunization history:: Adult Immunizations up to date. - Social history:: Smoking status: Patient denies any tobacco usage or history of. Screenin:14 Abuse screen: Denies threats or abuse. Denies injuries from another. Nutritional rr5 screening: No deficits noted. Tuberculosis screening: No symptoms or risk factors identified. Fall Risk IV access (20 points). Total Ma Fall Scale indicates No Risk (0-24 pts). Assessment: 01:16 General: Appears in no apparent distress. Behavior is cooperative, anxious. Pain: rr5 Complains of pain in chest Pain currently is 5 out of 10 on a pain scale. Quality of pain is described as aching, Pain began gradually, Is intermittent. Neuro: Level of Consciousness is awake, alert, obeys commands, Oriented to person, place, time. Cardiovascular: Reports chest pain, Capillary refill < 3 seconds Patient's skin is warm and dry. Respiratory: Airway is patent Respiratory effort is even, unlabored, Respiratory pattern is regular, symmetrical. GI: No signs and/or symptoms were reported involving the gastrointestinal system. Derm: Skin is intact, is healthy with good turgor, Skin temperature is warm. Musculoskeletal: Capillary refill < 3 seconds. 02:14 Reassessment: Patient appears in no apparent distress at this time. Patient is alert, rr5 oriented x 3, equal unlabored respirations, skin warm/dry/pink. listening on his ipad no complaints made. 03:01 Reassessment: Patient and/or family updated on plan of care and expected duration. Pain ea level reassessed. Patient is alert, oriented x 3, equal unlabored respirations, skin warm/dry/pink. 04:00 Reassessment: Patient appears in no apparent distress at this time. Patient is alert, rr5 oriented x 3, equal unlabored respirations, skin warm/dry/pink. [facility] assessing the patient in the ipad video call. 04:30 Reassessment: for in patient ( mental facility) as requested by family member. rr5 06:06 Reassessment: jaclyn wallace [phone] contact number. rr5 06:17 Reassessment: valuables given to security. rr5 07:00 Reassessment: RECD REPORT FROM ALEKSEY ALDRIDGE. 25YO WM P/W ANXIETY, DENIES SI/HI. bp REQUESTING PSYCH PLACEMENTS. 08:00 Reassessment: MD AT B/S FOR PT RE-EVAL. [facility] PEND[facility]. bp 11:00 Reassessment: PT DEFERRING ALL QUESTIONS TO HIS MOTHER. MD SPOKE WITH MOTHER FOR bp PROTRACTED PERIOD TO DETERMINE A PLAN OF CARE. 13:00 Reassessment: Patient appears in no apparent distress at this time. No changes from bp previously documented assessment. Patient and/or family updated on plan of care and expected duration. Pain level reassessed. TRANSFER IN PROCESS. 14:35 Reassessment: TRANSFER DECLINED BY ALL FACILITIES. FAMILY AT B/S. PT D/C HOME bp AMBULATORY WITH FAMILY. Psych: 01:00 [place] Suicide Severity Screening: In the past month, have you wished you were rr5 or wished you could go to sleep and not wake up? unable to answer "In the past month, have you actually had any thoughts of killing yourself?" not sure "In your lifetime, have you ever done anything, started to do anything, or prepared to do anything to end your life?" not sure. Subjective: Patient's mood is sad, Delusions are denied, Hallucinations are denied Having thoughts of not sure about my feeling as stated. Safety Checks: Personal items have been removed. Door is open. Visitors are present. 01:00 Objective: Patient is cooperative, guarded, Speech is normal, Affect is. Interventions: rr5 Removed personal items and placed in bag. Patient placed in hospital gown. Searched person for dangerous items. Urine collected and sent for urine drug test. Belonging list filled out. Pt denies substance abuse. Commitment: Patient will be a voluntary commitment. Vital Signs: 00:06 BP 143 / 88; Pulse 106; Resp 18; Temp 97.0; Pulse Ox 99% on R/A; Weight 117.93 kg; em Height 6 ft. 2 in. (187.96 cm); Pain 10/10; 01:17 BP 132 / 95; Pulse 100; Resp 16; Pulse Ox 98% ; rr5 02:14 BP 135 / 91; Pulse 98; Resp 16; Pulse Ox 98% ; rr5 03:01 BP 142 / 91; Pulse 94; Resp 18; Pulse Ox 98% ; ea 04:00 BP 121 / 85; Pulse 86; Resp 17; Pulse Ox 100% ; rr5 04:50 BP 106 / 71; Pulse 80; Resp 17; Pulse Ox 99% ; rr5 06:00 BP 115 / 74; Pulse 89; Resp 16; Pulse Ox 98% ; rr5 08:00 BP 96 / 65; Pulse 90; Resp 16; Pulse Ox 100% ; bp 10:00 BP 126 / 90; Pulse 72; Resp 15; Pulse Ox 100% ; bp 12:00 BP 128 / 84; Pulse 80; Resp 15; Pulse Ox 100% ; bp 00:06 Body Mass Index 33.38 (117.93 kg, 187.96 cm) em ED Course: 07/19 23:50 Patient arrived in ED. bp1 06/12 00:12 Triage completed. em 00:12 Arm band placed on. em 00:21 Karo Mejia, LUIS CARLOS is Primary Nurse. ea 00:30 COVID swab sent to lab. rr5 00:35 EKG done, by ED staff, reviewed by Nicholas Olivares MD. rr5 00:40 Inserted saline lock: 20 gauge in right forearm, using aseptic technique. Blood rr5 collected. 00:57 Nicholas Olivares MD is Attending Physician. 7 01:14 Urine collected: clean catch specimen, clear. rr5 01:17 Patient has correct armband on for positive identification. Placed in gown. Bed in low rr5 position. Adult w/ patient. Valuables Given to family. Pulse ox on. NIBP on. 02:21 called [facility] Crisis Line [phone] [facility] mw2 evaluate the patient. 02:30 Safety Checks: Personal items have been removed. The door is open or patient has been rr5 placed in a hallway bed/chair. A family member and/or friend is present and encouraged to stay. mother at bedside. 04:43 Morteza from [facility] called to inform us " I've found 3 available places that will take the mw2 patient, if you fax over his information I can try to get him a bed.". 04:45 Morteza called back to let us know that "we have a problem. I won't be able to hold that [address] bed for the patient because I'm not local or near you, but if you call the [facility] Crisis Line, and tell them the situation hopefully they can get the local [facility] to approve the funding for the [facility] beds at the facilities.". 04:50 faxed patient clinicals to [facility], mw2 [facility], [facility], [facility], [facility], [facility], [facility], [facility], and [facility]. 05:37 called [facility] back spoke to Santa she will help and see about finding placement for mw2 the patient. 05:51 Yael from [facility] called back to get information on the patient. I told Yael all mw2 that had happened with Morteza and the [facility] bed placement. Yael wants us to fax over the patient clinicals and will put in a bed request at [facility]. 06:09 No provider procedures requiring assistance completed. rr5 06:16 Appears to be sleeping. transfer approval from receiving facility. rr5 06:16 Xenia from [facility] called to decline the patient in transfer they do not have any eb beds at this time. 06:23 [facility] called to decline the patient in transfer/ they do not have any eb beds at this time. 07:11 Primary Nurse role handed off by Karo Mejia, LUIS CARLOS bp 07:11 Carlos Marte, RN is Primary Nurse. bp 07:56 Acetaminophen Sent. bp 14:49 IV discontinued, intact, bleeding controlled, No redness/swelling at site. Pressure bp dressing applied. Administered Medications: 01:15 Drug: Ativan (LORazepam) 1 mg Route: IVP; Site: right forearm; rr5 02:10 Follow up: Response: No adverse reaction rr5 Outcome: 14:17 Discharge ordered by MD. rn 14:49 Discharged to home ambulatory, with family. bp 14:49 Condition: stable 14:49 Discharge instructions given to patient, family, Instructed on discharge instructions, follow up and referral plans. Demonstrated understanding of instructions, follow-up care. 14:52 Patient left the ED. bp Signatures: Umesh Quach, RN Cruzito Castro MD MD rn Antunez, Elena, RN RN ea Peltier, Brian, LUIS CAR[facility]OS [facility] Yumiko Hdez Aleksey Butts, RN RN rr5 Lianne Engel [facility] Nicholas Olivares MD MD 7
--- NOTE | 2020-07-20 14:18 | EDPHYS ---
Physician Documentation [facility] Name: He Schmitz Age: 25 yrs Sex: Male : 1995 Arrival Date: 07/19/2020 Time: 23:50 Bed 5 Private MD: ED Physician Nicholas Olivares HPI: 07/20 03:14 This 25 yrs old Male presents to ER via Ambulatory with complaints of Psych mh7 Problem. 03:15 The patient presents to the emergency department with anxiety, over unknown mh7 circumstances, depression, over unknown circumstances. Onset: The symptoms/episode began/occurred 2 week(s) ago. Past psychiatric history: Prior diagnosis: bipolar disorder, Anxiety, Psychiatric medications include: none, Primary psychiatric physician: the patient does not have a primary psychiatric physician, the patient has not had a prior suicide gesture, the patient does not have a previous inpatient psychiatric history, the patient's last psychiatric treatment was none. Associated signs and symptoms: Pertinent negatives: abdominal pain, chest pain, chills, delusions, fever, hallucinations, headache, homicidal ideation, nausea, night sweats, palpitations, paranoia, shortness of breath, substance abuse, suicide ideation, tremor, vomiting. Severity of symptoms: At their worst the symptoms were moderate 4 day(s) ago, in the emergency department the symptoms are unchanged. Historical: - Allergies: 00:12 No Known Allergies; em - PMHx: 00:12 Anxiety; Gout; Left ventricular hypertrophy; em - PSHx: 00:12 None; em - Immunization history:: Adult Immunizations up to date. - Social history:: Smoking status: Patient denies any tobacco usage or history of. ROS: 03:15 Constitutional: Negative for fever, chills, and weight loss, Eyes: Negative for injury, mh7 pain, redness, and discharge, ENT: Negative for injury, pain, and discharge, Neck: Negative for injury, pain, and swelling, Cardiovascular: Negative for chest pain, palpitations, and edema, Respiratory: Negative for shortness of breath, cough, wheezing, and pleuritic chest pain, Abdomen/GI: Negative for abdominal pain, nausea, vomiting, diarrhea, and constipation, Back: Negative for injury and pain, : Negative for injury, bleeding, discharge, and swelling, MS/Extremity: Negative for injury and deformity, Skin: Negative for injury, rash, and discoloration, Neuro: Negative for headache, weakness, numbness, tingling, and seizure, Allergy/Immunology: Negative for hives, rash, and allergies, Endocrine: Negative for neck swelling, polydipsia, polyuria, polyphagia, and marked weight changes, Hematologic/Lymphatic: Negative for swollen nodes, abnormal bleeding, and unusual bruising. Exam: 03:15 Head/Face: Normocephalic, atraumatic. Eyes: Pupils equal round and reactive to light, mh7 extra-ocular motions intact. Lids and lashes normal. Conjunctiva and sclera are non-icteric and not injected. Cornea within normal limits. Periorbital areas with no swelling, redness, or edema. Neck: Trachea midline, no thyromegaly or masses palpated, and no cervical lymphadenopathy. Supple, full range of motion without nuchal rigidity, or vertebral point tenderness. No Meningismus. Chest/axilla: Normal chest wall appearance and motion. Nontender with no deformity. No lesions are appreciated. Cardiovascular: Regular rate and rhythm with a normal S1 and S2. No gallops, murmurs, or rubs. Normal PMI, no JVD. No pulse deficits. Respiratory: Lungs have equal breath sounds bilaterally, clear to auscultation and percussion. No rales, rhonchi or wheezes noted. No increased work of breathing, no retractions or nasal flaring. Abdomen/GI: Soft, non-tender, with normal bowel sounds. No distension or tympany. No guarding or rebound. No evidence of tenderness throughout. Back: No spinal tenderness. No costovertebral tenderness. Full range of motion. Skin: Warm, dry with normal turgor. Normal color with no rashes, no lesions, and no evidence of cellulitis. MS/ Extremity: Pulses equal, no cyanosis. Neurovascular intact. Full, normal range of motion. Neuro: Awake and alert, GCS 15, oriented to person, place, time, and situation. Cranial nerves II-XII grossly intact. Motor strength 5/5 in all extremities. Sensory grossly intact. Cerebellar exam normal. Normal gait. 03:15 Constitutional: The patient appears in no acute distress, alert, awake, anxious. 03:15 Psych: Behavior/mood is anxious, Affect is flat, Oriented to person, place, time, Patient has no thoughts/intents to harm self or others. Judgement / Insight is normal. Memory is normal. Delusions/hallucinations are not present. Vital Signs: 00:06 BP 143 / 88; Pulse 106; Resp 18; Temp 97.0; Pulse Ox 99% on R/A; Weight 117.93 kg; em Height 6 ft. 2 in. (187.96 cm); Pain 10/10; 01:17 BP 132 / 95; Pulse 100; Resp 16; Pulse Ox 98% ; rr5 02:14 BP 135 / 91; Pulse 98; Resp 16; Pulse Ox 98% ; rr5 03:01 BP 142 / 91; Pulse 94; Resp 18; Pulse Ox 98% ; ea 04:00 BP 121 / 85; Pulse 86; Resp 17; Pulse Ox 100% ; rr5 04:50 BP 106 / 71; Pulse 80; Resp 17; Pulse Ox 99% ; rr5 06:00 BP 115 / 74; Pulse 89; Resp 16; Pulse Ox 98% ; rr5 08:00 BP 96 / 65; Pulse 90; Resp 16; Pulse Ox 100% ; bp 10:00 BP 126 / 90; Pulse 72; Resp 15; Pulse Ox 100% ; bp 12:00 BP 128 / 84; Pulse 80; Resp 15; Pulse Ox 100% ; bp 00:06 Body Mass Index 33.38 (117.93 kg, 187.96 cm) em MDM: 14:13 Differential diagnosis: depression. Data reviewed: vital signs, nurses notes, lab test rn result(s), EKG, and as a result, I will discharge patient. Counseling: I had a detailed discussion with the patient and/or guardian regarding: the historical points, exam findings, and any diagnostic results supporting the discharge/admit diagnosis, lab results, the need for outpatient follow up, to return to the emergency department if symptoms worsen or persist or if there are any questions or concerns that arise at home. Medical screen evaluation completed. [facility] emergency medical condition absent. Response to treatment: the patient's symptoms have mildly improved after treatment. ED course: No beds for patient, attempted all psychiatric facilities in area, mother here and wants to take patient home, patient has denied suicidal ideation or homicidal ideation entire time, still denies suicidal ideation. Will dc home with return precautions. . 14:17 Patient medically screened. rn 07/20 00:23 Order name: Acetaminophen ea 07/20 00:23 Order name: Basic Metabolic Panel; Complete Time: 03:57 ea 07/20 00:23 Order name: CBC with Diff; Complete Time: 03:57 ea 07/20 00:23 Order name: ETOH Level; Complete Time: 03:57 ea 06 00:23 Order name: Hepatic Function; Complete Time: 03:57 ea 06 00:23 Order name: PT-INR; Complete Time: 03:57 07/20 00:23 Order name: Ptt, Activated; Complete Time: 03:57 07/20 00:23 Order name: Salicylate; Complete Time: 03:57 06 00:23 Order name: Urine Drug Screen; Complete Time: 03:57 07/20 00:24 Order name: Acetaminophen Level; Complete Time: 03:57 EDMS 0612 01:14 Order name: Urine Dipstick-Ancillary; Complete Time: 03:57 EDWA 0612 01:54 Order name: SARS-COV-2 RT PCR; Complete Time: 03:57 EDWA 07/20 00:23 Order name: EKG; Complete Time: 00:24 ea 06 00:23 Order name: EKG - Nurse/Tech; Complete Time: 00:35 ea 07/20 00:23 Order name: IV Saline Lock; Complete Time: 00:46 ea 07/20 00:23 Order name: Labs collected and sent; Complete Time: 00:46 ea 07/20 00:23 Order name: Suicide Screening ([place]); Complete Time: 06:33 ea 07/20 00:23 Order name: Urine Dipstick-Ancillary (obtain specimen); Complete Time: 01:15 ea 07/20 13:51 Order name: Diet Regular; Complete Time: 13:51 5 07/20 14:13 Order name: Diet Regular; Complete Time: 14:14 aa5 Administered Medications: 01:15 Drug: Ativan (LORazepam) 1 mg Route: IVP; Site: right forearm; rr5 02:10 Follow up: Response: No adverse reaction rr5 Disposition: 07/20/20 14:17 Discharged to Home. Impression: Encounter for general psychiatric examination, requested by authority. - Condition is Stable. - Medication Reconciliation Form, Thank You Letter, Antibiotic Education, Prescription Opioid Use form. - Follow up: Private Physician; When: As needed; Reason: Recheck today's complaints, Re-evaluation by your physician. - Problem is chronic. - Symptoms have improved. Signatures: Dispatcher [employer] [facility] Umesh Quach, RN Cruzito Castro MD MD rn Antunez, Elena, RN Carlos Ayon ea, RN RN Aleksey Damon, RN RN rr5 Nicholas Olivares MD MD 7 Corrections: (The following items were deleted from the chart) 00:43 00:21 CORONAVIRUS+.MARLON ordered. [facility] 03:17 03:14 The patient presents to the emergency department with anxiety, over unknown 7 circumstances, [facility] 14:52 14:17 07/20/2020 14:17 Discharged to Home. Impression: Encounter for general bp psychiatric examination, requested by authority. Condition is Stable. Forms are Medication Reconciliation Form, Thank You Letter, Antibiotic Education, Prescription Opioid Use. Follow up: Private Physician; When: As needed; Reason: Recheck today's complaints, Re-evaluation by your physician. Problem is chronic. Symptoms have improved. rn
[2020-07-20 14:59] VITALS: TEMP 97
[2020-07-20 15:09] VITALS: O2SAT 100
[2020-07-20 15:13] VITALS: BP 128/84
== END 2020-07-20 14:52 | disposition home or self-care (01) ==
LOC: ER 23:46
DX: Z04.6 Encounter for general psychiatric examination, requested by authority (principal)
CPT/HCPCS: 36415; 80048; 80076; 80307; 80320; 80329; 81003; 85025; 85610; 85730; 93005; 96374; 99285; U0003

== ENCOUNTER 2020-07-25 00:30 | Emergency (ER) | payer SELFPAY ==
--- NOTE | 2020-07-25 01:15 | ER ---
Nurse's Notes [facility] Name: He Schmitz Age: 25 yrs Sex: Male : 1995 Arrival Date: 07/25/2020 Time: 00:32 Bed 8 Private MD: Diagnosis: Superficial thrombophlebitis Presentation: 07/25 01:03 Chief complaint: Patient states: had an IV on Wednesday and they took it out sideways, pt em reports pain in right wrist where IV had. Coronavirus screen: Client denies travel out of the [place] in the last 14 days. Ebola Screen: Patient negative for fever greater than or equal to 101.5 degrees Fahrenheit, and additional compatible Ebola Virus Disease symptoms Patient denies exposure to infectious person. Patient denies travel to an Ebola-affected area in the 21 days before illness onset. No symptoms or risks identified at this time. Initial Sepsis Screen: Does the patient meet any 2 criteria? No. Patient's initial sepsis screen is negative. Does the patient have a suspected source of infection? No. Patient's initial sepsis screen is negative. Risk Assessment: Do you want to hurt yourself or someone else? Patient reports no desire to harm self or others. Onset of symptoms was July 25, 2020. 01:03 Method Of Arrival: Ambulatory em 01:03 Acuity: NICOLE 5 em Historical: - Allergies: 01:06 No Known Allergies; em - PMHx: 01:06 Anxiety; Gout; Left ventricular hypertrophy; em - PSHx: 01:06 None; em - Immunization history:: Adult Immunizations up to date. - Social history:: Smoking status: Patient denies any tobacco usage or history of. - Family history:: not pertinent. - Hospitalizations: : No recent hospitalization is reported. Screenin:10 Abuse screen: Denies threats or abuse. Denies injuries from another. Nutritional rr5 screening: No deficits noted. Tuberculosis screening: No symptoms or risk factors identified. Fall Risk None identified. Total Ma Fall Scale indicates No Risk (0-24 pts). Assessment: 01:10 General: Appears in no apparent distress. comfortable, Behavior is calm, cooperative, rr5 appropriate for age. Pain: Complains of pain in right wrist. Neuro: Level of Consciousness is awake, alert, obeys commands, Oriented to person, place, time. Cardiovascular: Capillary refill < 3 seconds Patient's skin is warm and dry. Respiratory: Airway is patent Respiratory effort is even, unlabored, Respiratory pattern is regular, symmetrical. Derm: Skin is intact, Skin temperature is warm Reports pain right wrist. 01:33 Reassessment: Patient appears in no apparent distress at this time. Patient is alert, rr5 oriented x 3, equal unlabored respirations, skin warm/dry/pink. discharge instruction given and explained without complaints made. Vital Signs: 01:03 Pulse 94; Resp 18; Temp 97.8; Pulse Ox 99% on R/A; Weight 113.4 kg; Height 6 ft. 2 in. em (187.96 cm); Pain 6/10; 01:07 BP 154 / 84; eb 01:31 BP 141 / 75; Pulse 90; Resp 17; Pulse Ox 98% ; rr5 01:03 Body Mass Index 32.10 (113.40 kg, 187.96 cm) ED Course: 00:32 Patient arrived in ED. am4 01:05 Cruzito Vaca MD is Attending Physician. rn 01:06 Triage completed. em 01:06 Arm band placed on. em 01:10 Patient has correct armband on for positive identification. Bed in low position. Call rr5 light in reach. Adult w/ patient. 01:14 Aleksey Butts, LUIS CARLOS is Primary Nurse. rr5 01:33 No provider procedures requiring assistance completed. Patient did not have IV access rr5 during this emergency room visit. Administered Medications: No medications were administered Outcome: 01:14 Discharge ordered by MD. rn 01:25 Discharged to home ambulatory, with family. rr5 01:25 Condition: stable 01:25 Discharge instructions given to patient, family, Instructed on discharge instructions, follow up and referral plans. Demonstrated understanding of instructions, follow-up care, medications. 01:29 Patient left the ED. rr5 Signatures: Umesh Quach RN RN Cruzito Vaca MD MD rn Botello, Elizabeth eb Roque, Raymond, LUIS CARLOS RN rr5 Keri Valera am4 Corrections: (The following items were deleted from the chart) 01:34 01:10 Discharged to home ambulatory, with family, rr5 rr5 :34 01:10 Condition: stable rr5 rr5 :34 01:10 Discharge instructions given to patient, family, Instructed on discharge rr5 instructions, follow up and referral plans. Demonstrated understanding of instructions, follow-up care, medications, rr5
--- NOTE | 2020-07-25 01:15 | EDPHYS ---
Physician Documentation [facility] Name: He Schmitz Age: 25 yrs Sex: Male : 1995 Arrival Date: 07/25/2020 Time: 00:32 Bed 8 Private MD: ED Physician Cruzito Vaca HPI: 07/25 01:10 This 25 yrs old Male presents to ER via Ambulatory with complaints of Arm rn Pain. 01:10 The patient or guardian complains of pain, that is acute. The complaints affect the rn right wrist. Onset: The symptoms/episode began/occurred today. Modifying factors: The symptoms are alleviated by nothing. the symptoms are aggravated by nothing. Severity of symptoms: At their worst the symptoms were very mild, in the emergency department the symptoms are unchanged. The patient has not experienced similar symptoms in the past. The patient has been recently seen by a physician:. Reports had IV in right arm/wrist a few days ago, thinks got pulled out "sideways", today noticed mild pain at the IV site with tingling. No swelling. No fever. No injury. . Historical: - Allergies: 01:06 No Known Allergies; em - PMHx: 01:06 Anxiety; Gout; Left ventricular hypertrophy; em - PSHx: 01:06 None; em - Immunization history:: Adult Immunizations up to date. - Social history:: Smoking status: Patient denies any tobacco usage or history of. - Family history:: not pertinent. - Hospitalizations: : No recent hospitalization is reported. ROS: 01:10 Constitutional: Negative for fever, chills, and weight loss, Cardiovascular: Negative rn for chest pain, palpitations, and edema, Respiratory: Negative for shortness of breath, cough, wheezing, and pleuritic chest pain, MS/Extremity: Negative for injury and deformity, Skin: Negative for injury, rash, and discoloration, Neuro: Negative for headache, weakness, numbness, tingling, and seizure, Psych: Negative for suicide ideation, homicidal ideation, and hallucinations. Exam: 01:10 Constitutional: This is a well developed, well nourished patient who is awake, alert, rn and in no acute distress. Head/Face: Normocephalic, atraumatic. Skin: Warm, dry, no evidence of cellulitis MS/ Extremity: Pulses equal, no cyanosis. Neurovascular intact. Full, normal range of motion. Equal circumference. Vital Signs: 01:03 Pulse 94; Resp 18; Temp 97.8; Pulse Ox 99% on R/A; Weight 113.4 kg; Height 6 ft. 2 in. em (187.96 cm); Pain 6/10; 01:07 BP 154 / 84; eb 01:31 BP 141 / 75; Pulse 90; Resp 17; Pulse Ox 98% ; rr5 01:03 Body Mass Index 32.10 (113.40 kg, 187.96 cm) em MDM: 01:05 Patient medically screened. rn 01:10 Differential diagnosis: thrombophlebitis. Data reviewed: vital signs, nurses notes, old rn medical records, and as a result, I will discharge patient. Counseling: I had a detailed discussion with the patient and/or guardian regarding: the historical points, exam findings, and any diagnostic results supporting the discharge/admit diagnosis, the need for outpatient follow up, to return to the emergency department if symptoms worsen or persist or if there are any questions or concerns that arise at home. Special discussion: I discussed with the patient/guardian in detail that at this point there is no indication for admission to the hospital. It is understood, however, that if the symptoms persist or worsen the patient needs to return immediately for re-evaluation. ED course: Recommend warm compresses and motrin for superficial thrombophlebitis. Administered Medications: No medications were administered Disposition: 07/25/20 01:14 Discharged to Home. Impression: Superficial thrombophlebitis. - Condition is Stable. - Discharge Instructions: Phlebitis. - Medication Reconciliation Form, Thank You Letter, Antibiotic Education, Prescription Opioid Use form. - Follow up: Private Physician; When: As needed; Reason: Recheck today's complaints, Re-evaluation by your physician. - Problem is new. - Symptoms have improved. Signatures: Umesh Quach RN RN em Cruzito Vaca MD MD rn Roque, Raymond, RN RN rr5 Corrections: (The following items were deleted from the chart) 01:12 01:10 Constitutional: Negative for fever, chills, and weight loss, Cardiovascular: rn Negative for chest pain, palpitations, and edema, Respiratory: Negative for shortness of breath, cough, wheezing, and pleuritic chest pain, MS/Extremity: Negative for injury and deformity, Skin: Negative for injury, rash, and discoloration, Neuro: Negative for headache, weakness, numbness, tingling, and seizure, rn 01:12 01:10 Constitutional: Negative for fever, chills, and weight loss, Cardiovascular: rn Negative for chest pain, palpitations, and edema, Respiratory: Negative for shortness of breath, cough, wheezing, and pleuritic chest pain, MS/Extremity: Negative for injury and deformity, Skin: Negative for injury, rash, and discoloration, Neuro: Negative for headache, weakness, numbness, tingling, and seizure, Psych: Negative for depression, anxiety, suicide ideation, homicidal ideation, and hallucinations, rn 01:29 01:14 07/25/2020 01:14 Discharged to Home. Impression: Superficial thrombophlebitis. rr5 Condition is Stable. Forms are Medication Reconciliation Form, Thank You Letter, Antibiotic Education, Prescription Opioid Use. Follow up: Private Physician; When: As needed; Reason: Recheck today's complaints, Re-evaluation by your physician. Problem is new. Symptoms have improved. rn
[2020-07-25 01:51] VITALS: TEMP 97.8; O2SAT 99
[2020-07-25 01:52] VITALS: BP 154/84
== END 2020-07-25 01:29 | disposition home or self-care (01) ==
LOC: ER 00:30
DX: I80.8 Phlebitis and thrombophlebitis of other sites (principal)

== ENCOUNTER 2020-08-27 13:06 | Emergency (ER) | payer SELFPAY ==
[2020-08-27] MEDS ORDERED: predniSONE 20 MG TAB ONE (15:22)
[2020-08-27] MEDS ORDERED: KETOROLAC 30 MG/ML INJ ONE (15:22)
--- NOTE | 2020-08-27 15:40 | RAD REPORT ---
EXAM DESCRIPTION: RAD - Ankle Left 3 View -08/27/2020 2:38 pm CLINICAL HISTORY: Left ankle pain FINDINGS: No acute fracture or dislocation is seen. Bony density adjacent to the medial malleolus appears chronic. On the lateral view there are several densities within the plantar aspect of the junction of the hind foot/midfoot which may represent foreign bodies or be on the skin surface
--- NOTE | 2020-08-27 15:57 | EDPHYS ---
Physician Documentation [facility] Name: He Schmitz Age: 25 yrs Sex: Male : 1995 Arrival Date: 08/27/2020 Time: 13:08 Bed Treatment Private MD: ED Physician Maksim Blackman HPI: 08/27 14:48 This 25 yrs old Male presents to ER via Ambulatory with complaints of Ankle pm1 pain. 14:48 The patient presents with pain. The complaints affect the left lateral ankle just below pm1 malleolus . Onset: The symptoms/episode began/occurred 1 month(s) ago. Context: The problem was sustained at home, resulted from an unknown cause, The patient can fully bear weight on the affected extremity. the patient is able to ambulate, without difficulty. Associated signs and symptoms: Pertinent negatives: numbness, swelling, tingling. Modifying factors: The symptoms are alleviated by nothing, the symptoms are aggravated by nothing. Severity of symptoms: in the emergency department the symptoms are unchanged. The patient has experienced similar episodes in the past, a few times, usually resolves in a few days, but this episode has lasted for 1 month. The patient has not recently seen a physician. Historical: - Allergies: 13:48 No Known Allergies; ph - PMHx: 13:48 Anxiety; Gout; Left ventricular hypertrophy; ph - Immunization history:: Client reports receiving the 2nd dose of the Covid vaccine. - Social history:: Smoking status: Patient denies any tobacco usage or history of. ROS: 14:48 Constitutional: Negative for fever, chills, and weight loss, Cardiovascular: Negative pm1 for chest pain, palpitations, and edema, Respiratory: Negative for shortness of breath, cough, wheezing, and pleuritic chest pain. 14:48 Skin: Negative for injury, rash, and discoloration, Neuro: Negative for headache, weakness, numbness, tingling, and seizure. 14:48 MS/extremity: Positive for pain, of the left lateral ankle, Negative for injury or acute deformity, decreased range of motion, deformity, swelling. 14:48 All other systems are negative. Exam: 14:48 Constitutional: This is a well developed, well nourished patient who is awake, alert, pm1 and in no acute distress. Head/Face: Normocephalic, atraumatic. 14:48 Skin: Warm, dry with normal turgor. Normal color with no rashes, no lesions, and no evidence of cellulitis. 14:48 Eyes: Exam is negative for acute changes, Extraocular movements: intact throughout, Conjunctiva: no acute changes, no injection. 14:48 ENT: Exam is negative for acute changes, Mouth: Lips: normal, Oral mucosa: normal, pink and intact, moist. 14:48 Cardiovascular: Exam negative for acute changes, Rate: normal, Rhythm: regular, Pulses: no pulse deficits are appreciated. 14:48 Respiratory: Exam negative for acute changes, respiratory distress, shortness of breath. 14:48 Musculoskeletal/extremity: Extremities: all appear grossly normal, with no appreciated pain with palpation, noted in the left lateral ankle: There is no evidence of decreased ROM, deformity, swelling, tenderness. 14:48 Neuro: Exam negative for acute changes, Orientation: is normal, Gait: is steady, at a normal pace, without difficulty. Vital Signs: 13:47 BP 131 / 79; Pulse 59; Resp 18; Temp 97.8; Pulse Ox 99% on R/A; Weight 108.86 kg; ph Height 6 ft. 2 in. (187.96 cm); 13:47 Body Mass Index 30.81 (108.86 kg, 187.96 cm) ph MDM: 14:31 Patient medically screened. pm1 15:56 Data reviewed: vital signs. Data interpreted: Pulse oximetry: on room air is 99 %. pm1 Interpretation: normal. Counseling: I had a detailed discussion with the patient and/or guardian regarding: the historical points, exam findings, and any diagnostic results supporting the discharge/admit diagnosis, radiology results, the need for outpatient follow up, to return to the emergency department if symptoms worsen or persist or if there are any questions or concerns that arise at home. 15:59 ED course: foreign bodies on x-ray actually on patient's sock. X-ray taken with sock on pm1 per patient. Patient's pain relieved with steroid and NSAID. Will discharge the patient with the same class of medications. Likely early gout or arthritis. 08/27 13:51 Order name: Ankle Left 3 View XRAY; Complete Time: 15:41 pm1 Administered Medications: 15:05 Drug: Ketorolac 60 mg Route: IM; Site: left deltoid; ph 16:08 Follow up: Response: No adverse reaction ph 15:05 Drug: predniSONE 60 mg Route: PO; ph 16:08 Follow up: Response: No adverse reaction ph Disposition: 08/28 07:07 Co-signature as Attending Physician, Maksim Blackman MD I agree with the assessment and kdr plan of care. Disposition Summary: 08/27/20 15:56 Discharge Ordered Location: Home pm1 Problem: new pm1 Symptoms: have improved pm1 Condition: Stable pm1 Diagnosis - Pain in left ankle and joints of left foot pm1 Followup: pm1 - With: Emergency Department - When: As needed - Reason: Worsening of condition Followup: pm1 - With: Private Physician - When: 2 - 3 days - Reason: Recheck today's complaints, Continuance of care, Re-evaluation by your physician Discharge Instructions: - Discharge Summary Sheet pm1 - Gout pm1 - Ankle Pain pm1 Forms: - Medication Reconciliation Form pm1 - Thank You Letter pm1 - Antibiotic Education pm1 - Prescription Opioid Use pm1 Prescriptions: - Diclofenac Sodium 75 mg Oral tablet,delayed release (DR/EC) - take 1 tablet by ORAL route every 12 hours As needed; 30 tablet; Refills: 0, pm1 Product Selection Permitted - Medrol (Rodríguez) 4 mg Oral Tablets, Dose Pack - take 1 tablet by ORAL route as directed - follow package instructions; 1 pm1 packet; Refills: 0, Product Selection Permitted Signatures: Dispatcher [employer] EDMaksim Lopez MD MD kdr Hall, Patricia, RN RN Avni Moreno, [employer] WALKING DRAGLINE OPERATOR pm1
--- NOTE | 2020-08-27 15:57 | ER ---
Nurse's Notes [facility] Name: He Schmitz Age: 25 yrs Sex: Male : 1995 Arrival Date: 08/27/2020 Time: 13:08 Bed Treatment Private MD: Diagnosis: Pain in left ankle and joints of left foot Presentation: 08/27 13:47 Chief complaint: Patient states: L ankle pain x 1 month, denies known injury, ph ambulatory into triage w/ no difficulty noted, states, " It's happened before but it went away and this time it hasn't.". Coronavirus screen: Client denies travel out of the [place] in the last 14 days. At this time, the client does not indicate any symptoms associated with coronavirus-19. Ebola Screen: No symptoms or risks identified at this time. Initial Sepsis Screen: Does the patient meet any 2 criteria? No. Patient's initial sepsis screen is negative. Does the patient have a suspected source of infection? No. Patient's initial sepsis screen is negative. Risk Assessment: Do you want to hurt yourself or someone else? Patient reports no desire to harm self or others. Onset of symptoms was August 27, 2020. 13:47 Method Of Arrival: Ambulatory ph 13:47 Acuity: NICOLE 4 ph Historical: - Allergies: 13:48 No Known Allergies; ph - PMHx: 13:48 Anxiety; Gout; Left ventricular hypertrophy; ph - Immunization history:: Client reports receiving the 2nd dose of the Covid vaccine. - Social history:: Smoking status: Patient denies any tobacco usage or history of. Screenin:49 Abuse screen: Denies threats or abuse. Denies injuries from another. Nutritional ph screening: No deficits noted. Tuberculosis screening: No symptoms or risk factors identified. Fall Risk None identified. Assessment: 13:49 General: Appears in no apparent distress. comfortable, Behavior is calm, cooperative, ph appropriate for age, quiet. Pain: Complains of pain in left lateral ankle. Neuro: Level of Consciousness is awake, alert, obeys commands, Oriented to person, place, time, situation. Cardiovascular: Capillary refill < 3 seconds in bilateral fingers Patient's skin is warm and dry. Respiratory: No deficits noted. GI: No signs and/or symptoms were reported involving the gastrointestinal system. Derm: Skin is intact, is healthy with good turgor, Skin is pink, warm \\T\\ dry. Musculoskeletal: Circulation, motion, and sensation intact. Range of motion: intact in all extremities. 16:09 Reassessment: Patient is alert, oriented x 3, equal unlabored respirations, skin aa5 warm/dry/pink. Vital Signs: 13:47 BP 131 / 79; Pulse 59; Resp 18; Temp 97.8; Pulse Ox 99% on R/A; Weight 108.86 kg; ph Height 6 ft. 2 in. (187.96 cm); 13:47 Body Mass Index 30.81 (108.86 kg, 187.96 cm) ph ED Course: 13:08 Patient arrived in ED. mr 13:47 Magdalene Huang, RN is Primary Nurse. ph 13:48 Triage completed. ph 13:49 Arm band placed on Patient placed in an exam room. ph 13:49 Patient has correct armband on for positive identification. Call light in reach. Door ph closed. Noise minimized. 13:51 Avni Tejeda NP is PHCP. pm1 13:51 Maksim Blackman MD is Attending Physician. pm1 14:38 Ankle Left 3 View XRAY In Process Unspecified. EDMS 16:09 No provider procedures requiring assistance completed. Patient did not have IV access aa5 during this emergency room visit. Administered Medications: 15:05 Drug: Ketorolac 60 mg Route: IM; Site: left deltoid; ph 16:08 Follow up: Response: No adverse reaction ph 15:05 Drug: predniSONE 60 mg Route: PO; ph 16:08 Follow up: Response: No adverse reaction ph Outcome: 15:56 Discharge ordered by . pm1 16:09 Discharged to home ambulatory. aa5 16:09 Condition: stable 16:09 Discharge instructions given to patient, Instructed on discharge instructions, follow up and referral plans. medication usage, Demonstrated understanding of instructions, follow-up care, medications, Prescriptions given X 2. 16:12 Patient left the ED. aa5 Signatures: Dispatcher [employer] [facility] Bryant Abimbola SerraLissette RN RN aa5 Magdalene Huang RN RN ph Avni Tejeda NP ENGRAVER RUBBER pm1
[2020-08-27 17:38] VITALS: BP 131/79; TEMP 97.8; O2SAT 99
== END 2020-08-27 16:12 | disposition home or self-care (01) ==
LOC: ER 13:06
DX: M25.572 Pain in left ankle and joints of left foot (principal)
CPT/HCPCS: 96372; 99283; J7512

== ENCOUNTER 2020-09-04 14:21 | Emergency (ER) | payer SELFPAY ==
--- NOTE | 2020-09-04 15:32 | RAD REPORT ---
EXAM DESCRIPTION: RAD - Chest Single View - 09/04/2020 3:17 pm CLINICAL HISTORY: COUGH COMPARISON: Chest Pa And Lat (2 Views) dated 02/07/2020; Chest Pa And Lat (2 Views) dated 04/28/2019; Chest Pa And Lat (2 Views) dated 02/09/2019 FINDINGS: No evidence of edema or pneumonia. Mild cardiomegaly.No acute osseous abnormality. No sign ificant pleural effusions or pneumothorax. IMPRESSION: No acute cardiopulmonary disease.
--- NOTE | 2020-09-04 17:25 | EDPHYS ---
Physician Documentation [facility] Name: He Schmitz Age: 25 yrs Sex: Male : 1995 Arrival Date: 09/04/2020 Time: 14:23 Bed Treatment Private MD: ED Physician Cruzito Vaca HPI: 09/04 17:20 This 25 yrs old Male presents to ER via Ambulatory with complaints of Cough. rn 17:20 The patient or guardian reports cough, that is intermittent, described as mild, with no rn sputum. Onset: The symptoms/episode began/occurred 2 week(s) ago. Severity of symptoms: At their worst the symptoms were very mild, in the emergency department the symptoms are unchanged. Modifying factors: The symptoms are alleviated by nothing, the symptoms are aggravated by damp environment. Associated signs and symptoms: Pertinent negatives: chest pain, diarrhea, ear ache, fever, nausea, rhinorrhea, sore throat, vomiting. The patient has not experienced similar symptoms in the past. The patient has not recently seen a physician. Patient reports a couple of weeks of dry mild intermittent cough. No fever. No shortness of breath. Patient states that smelled some musky and mold odor recently and was not sure if could cause cough. Patient refused Covid testing and triage. Non-smoker.. Historical: - Allergies: 15:01 No Known Allergies; kg - Home Meds: 15:01 None [Active]; kg - PMHx: 15:01 Left ventricular hypertrophy; Gout; Anxiety; Autism; kg - PSHx: 15:01 None; kg - Immunization history:: Adult Immunizations not up to date, Client reports receiving the 2nd dose of the Covid vaccine. - Social history:: Smoking status: Patient denies any tobacco usage or history of. Patient uses. - Family history:: not pertinent. - Hospitalizations: : No recent hospitalization is reported. ROS: 17:20 Constitutional: Negative for fever, chills, and weight loss, Eyes: Negative for injury, rn pain, redness, and discharge, ENT: Negative for injury, pain, and discharge, Neck: Negative for injury, pain, and swelling, Cardiovascular: Negative for chest pain, palpitations, and edema, Respiratory: Negative for shortness of breath, wheezing Abdomen/GI: Negative for abdominal pain, nausea, vomiting, diarrhea, and constipation, Back: Negative for injury and pain, : Negative for injury, bleeding, discharge, and swelling, MS/Extremity: Negative for injury and deformity, Skin: Negative for injury, rash, and discoloration, Neuro: Negative for headache, weakness, numbness, tingling, and seizure. Exam: 17:20 Constitutional: This is a well developed, well nourished patient who is awake, alert, rn and in no acute distress. Head/Face: Normocephalic, atraumatic. Eyes: Pupils equal round and reactive to light, extra-ocular motions intact. Lids and lashes normal. Conjunctiva and sclera are non-icteric and not injected. Cornea within normal limits. Periorbital areas with no swelling, redness, or edema. ENT: No stridor Cardiovascular: Regular rate and rhythm. No pulse deficits. Respiratory: Speaking full sentences, unlabored. No increased work of breathing, no retractions or nasal flaring. Abdomen/GI: Soft, non-tender Skin: Warm, dry with normal turgor. Normal color with no rashes, no lesions, and no evidence of cellulitis. MS/ Extremity: Pulses equal, no cyanosis. Neurovascular intact. Full, normal range of motion. Equal circumference. Neuro: Awake and alert, GCS 15, oriented to person, place, time, and situation. Cranial nerves II-XII grossly intact. Motor strength 5/5 in all extremities. Sensory grossly intact. Cerebellar exam normal. Vital Signs: 14:58 BP 133 / 93; Pulse 82; Resp 20; Temp 98.2(TE); Pulse Ox 98% on R/A; Weight 128.82 kg kg (M); Height 6 ft. 2 in. (187.96 cm); Pain 2/10; 17:06 BP 128 / 90; Pulse 80; Resp 20; Pulse Ox 99% on R/A; ld1 14:58 Body Mass Index 36.46 (128.82 kg, 187.96 cm) kg MDM: 17:13 Patient medically screened. rn 17:20 Differential Diagnosis: Bronchitis Upper Respiratory Infection Viral Syndrome rn Pneumonia. Data reviewed: vital signs, nurses notes, radiologic studies, plain films, and as a result, I will discharge patient. Counseling: I had a detailed discussion with the patient and/or guardian regarding: the historical points, exam findings, and any diagnostic results supporting the discharge/admit diagnosis, radiology results, the need for outpatient follow up, to return to the emergency department if symptoms worsen or persist or if there are any questions or concerns that arise at home. Special discussion: I discussed with the patient/guardian in detail that at this point there is no indication for admission to the hospital. It is understood, however, that if the symptoms persist or worsen the patient needs to return immediately for re-evaluation. ED course: X-ray without acute findings, no evidence of pneumonia. No oxygen requirement. Patient refused Covid swab. Will send home with return precautions and PCP follow-up.. 09/04 15:05 Order name: XRAY Chest (1 view); Complete Time: 16:38 kg Administered Medications: No medications were administered Disposition Summary: 09/04/20 17:25 Discharge Ordered Location: Home rn Problem: an ongoing problem rn Symptoms: are unchanged rn Condition: Stable rn Diagnosis - Cough rn Followup: rn - With: Private Physician - When: As needed - Reason: Recheck today's complaints, Re-evaluation by your physician Discharge Instructions: - Discharge Summary Sheet rn - Cough, Adult rn Forms: - Medication Reconciliation Form rn - Thank You Letter rn - Antibiotic furnace operator oil or gas - Prescription Opioid Use rn Signatures: Dispatcher [employer] EDCruzito Tanner MD MD rn Graham, Kristen, RN RN kg Corrections: (The following items were deleted from the chart) 15:09 15:06 CORONAVIRUS+Z ordered. EDKS EDKS
--- NOTE | 2020-09-04 17:25 | ER ---
Nurse's Notes [facility] Name: He Schmitz Age: 25 yrs Sex: Male : 1995 Arrival Date: 09/04/2020 Time: 14:23 Bed Treatment Private MD: Diagnosis: Cough Presentation: 09/04 14:58 Chief complaint: Patient states: Cough and epigastric pain x 2 wks. Denies N/V/D fever. kg Coronavirus screen: Client denies travel out of the [place] in the last 14 days. At this time, unable to obtain information related to travel outside the [place] At this time, the client does not indicate any symptoms associated with coronavirus-19. Ebola Screen: Patient negative for fever greater than or equal to 101.5 degrees Fahrenheit, and additional compatible Ebola Virus Disease symptoms Patient denies exposure to infectious person. Patient denies travel to an Ebola-affected area in the 21 days before illness onset. Initial Sepsis Screen: Does the patient meet any 2 criteria? No. Patient's initial sepsis screen is negative. Does the patient have a suspected source of infection?. Risk Assessment: Do you want to hurt yourself or someone else? Patient reports no desire to harm self or others. Onset of symptoms was August 21, 2020. 14:58 Method Of Arrival: Ambulatory kg 14:58 Acuity: NICOLE 4 kg Triage Assessment: 15:01 General: Appears in no apparent distress. Behavior is calm, cooperative, flat, quiet. kg Pain: Complains of pain in xiphoid area Pain currently is 1 out of 10 on a pain scale. at worst was 2 out of 10 on a pain scale. level that patient reports is acceptable is 2 out of 10 on a pain scale. Quality of pain is described as discomfort Pain began two weeks. Cardiovascular:. Historical: - Allergies: 15:01 No Known Allergies; kg - Home Meds: 15:01 None [Active]; kg - PMHx: 15:01 Left ventricular hypertrophy; Gout; Anxiety; Autism; kg - PSHx: 15:01 None; kg - Immunization history:: Adult Immunizations not up to date, Client reports receiving the 2nd dose of the Covid vaccine. - Social history:: Smoking status: Patient denies any tobacco usage or history of. Patient uses. - Family history:: not pertinent. - Hospitalizations: : No recent hospitalization is reported. Screenin:04 Abuse screen: Denies threats or abuse. Denies injuries from another. Nutritional kg screening: No deficits noted. Tuberculosis screening: No symptoms or risk factors identified. Fall Risk None identified. Assessment: 17:06 General: Appears in no apparent distress. comfortable, Behavior is calm, cooperative, ld1 appropriate for age. Pain: Complains of pain in chest Pain does not radiate. Pain currently is 5 out of 10 on a pain scale. Quality of pain is described as pressure, Pain began 1 day ago. Is continuous. Neuro: Level of Consciousness is awake, alert, obeys commands, Oriented to person, place, time, situation. Cardiovascular: Capillary refill < 3 seconds Patient's skin is warm and dry. Respiratory: Airway is patent Respiratory effort is even, unlabored, Respiratory pattern is regular, symmetrical. GI: Abdomen is round non-distended. : No signs and/or symptoms were reported regarding the genitourinary system. EENT: No signs and/or symptoms were reported regarding the EENT system. Derm: No signs and/or symptoms reported regarding the dermatologic system. Musculoskeletal: No signs and/or symptoms reported regarding the musculoskeletal system. Vital Signs: 14:58 BP 133 / 93; Pulse 82; Resp 20; Temp 98.2(TE); Pulse Ox 98% on R/A; Weight 128.82 kg kg (M); Height 6 ft. 2 in. (187.96 cm); Pain 2/10; 17:06 BP 128 / 90; Pulse 80; Resp 20; Pulse Ox 99% on R/A; ld1 14:58 Body Mass Index 36.46 (128.82 kg, 187.96 cm) kg ED Course: 14:23 Patient arrived in ED. as 15:01 Triage completed. kg 15:01 Arm band placed on right wrist. kg 15:04 Patient has correct armband on for positive identification. kg 15:04 No provider procedures requiring assistance completed. kg 15:16 XRAY Chest (1 view) In Process Unspecified. EDMS 16:58 Rabia Pal, LUIS ACRLOS is Primary Nurse. ld1 17:06 cafeteria monitor on. Pulse ox on. NIBP on. ld1 17:13 Cruzito Vaca MD is Attending Physician. rn 17:43 Patient did not have IV access during this emergency room visit. ld1 17:43 Patient maintains SpO2 saturation greater than 95% on room air. ld1 Administered Medications: No medications were administered Outcome: 17:25 Discharge ordered by . rn 17:43 Discharged to home ambulatory. ld1 17:43 Condition: stable 17:43 Discharge instructions given to patient, Instructed on discharge instructions, follow up and referral plans. Demonstrated understanding of instructions, follow-up care. 17:43 Patient left the ED. ld1 Signatures: Dispatcher [employer] Amanda Sims Roman, MD MD rn Dibbern, Lauren, RN RN ld1 Bailey Mason RN RN kg
[2020-09-05 13:46] VITALS: TEMP 98.2
[2020-09-05 13:49] VITALS: BP 128/90; O2SAT 99
== END 2020-09-04 17:43 | disposition home or self-care (01) ==
LOC: ER 14:21
DX: R05 Cough (principal); Z53.29 Procedure and treatment not carried out because of patient's decision for other reasons
CPT/HCPCS: 71045; 99284

== ENCOUNTER 2020-11-21 19:23 | Emergency (ER) | payer SELFPAY ==
--- NOTE | 2020-11-21 20:14 | RAD REPORT ---
EXAM DESCRIPTION: CT - Head Brain Wo Cont - 11/21/2020 8:07 pm CLINICAL HISTORY: HEADACHE Headache, drowsiness COMPARISON: Head Brain Wo Cont dated 12/24/2019; Head Brain Wo Cont dated 09/14/2018 TECHNIQUE: All CT scans are performed using dose optimization technique as appropriate and may inclu de automated exposure control or mA/KV adjustment according to patient size. FINDINGS: No intracranial hemorrhage, hydrocephalus or extra-axial fluid collection.No areas of brai n edema or evidence of midline shift. The paranasal sinuses and mastoids are clear. The calvarium is intact. IMPRESSION: No acute intracranial abnormality.
--- NOTE | 2020-11-21 20:21 | ER ---
Nurse's Notes [facility] Name: He Schmitz Age: 25 yrs Sex: Male : 1995 Arrival Date: 11/21/2020 Time: 19:27 Bed 10 Private MD: Diagnosis: Ophthalmoplegic migraine, not intractable Presentation: 11/21 19:32 Chief complaint: Patient states: headache and rt eye pain x 2 days. Coronavirus screen: sj Vaccine status: Patient reports receiving the 2nd dose of the covid vaccine. Patient reports receiving the 1st dose of the Covid vaccine. Ebola Screen: Patient negative for fever greater than or equal to 101.5 degrees Fahrenheit, and additional compatible Ebola Virus Disease symptoms Patient denies exposure to infectious person. Patient denies travel to an Ebola-affected area in the 21 days before illness onset. No symptoms or risks identified at this time. Initial Sepsis Screen: Does the patient meet any 2 criteria? No. Patient's initial sepsis screen is negative. Does the patient have a suspected source of infection? No. Patient's initial sepsis screen is negative. Risk Assessment: Do you want to hurt yourself or someone else? Patient reports no desire to harm self or others. Onset of symptoms was November 19, 2020. 19:32 Method Of Arrival: Ambulatory [facility] 19:32 Acuity: NICOLE 4 sj1 Triage Assessment: 19:34 Headache History: Denies prior headaches. General: Appears in no apparent distress. sj1 Behavior is calm, cooperative, appropriate for age. Pain: Complains of pain in rt side of head and rt eye Pain does not radiate. Pain currently is 6 out of 10 on a pain scale. at worst was 10 out of 10 on a pain scale. level that patient reports is acceptable is 0 out of 10 on a pain scale. Quality of pain is described as aching, Pain began 2-3 days ago. Is continuous, Also complains of no other associated symptoms. EENT: Reports pain in rt eye. Neuro: No deficits noted. Cardiovascular: No deficits noted. Respiratory: No deficits noted. GI: No deficits noted. : No deficits noted. Derm: No deficits noted. Musculoskeletal: No deficits noted. Historical: - Allergies: 19:34 No Known Allergies; sj1 - Home Meds: 19:34 None [Active]; sj1 - PMHx: 19:34 Anxiety; Autism; Gout; Left ventricular hypertrophy; sj1 - Immunization history:: Adult Immunizations up to date. - Social history:: Smoking status: Patient denies any tobacco usage or history of. Patient/guardian denies using alcohol, street drugs. - Family history:: not pertinent. - Hospitalizations: : No recent hospitalization is reported. Screenin:37 Abuse screen: Denies threats or abuse. Denies injuries from another. Nutritional sj1 screening: No deficits noted. Tuberculosis screening: No symptoms or risk factors identified. Fall Risk None identified. Assessment: 19:58 General: Appears in no apparent distress. comfortable, Behavior is calm, cooperative, ld1 appropriate for age. Pain: Complains of pain in right eye Pain does not radiate. Pain currently is 6 out of 10 on a pain scale. Quality of pain is described as throbbing, Pain began 1 day ago. Is continuous. Neuro: Level of Consciousness is awake, alert, obeys commands, Oriented to person, place, time, situation. Cardiovascular: Capillary refill < 3 seconds Patient's skin is warm and dry. Respiratory: Airway is patent Respiratory effort is even, unlabored, Respiratory pattern is regular, symmetrical. GI: Abdomen is flat, non-distended. : No signs and/or symptoms were reported regarding the genitourinary system. EENT: No signs and/or symptoms were reported regarding the EENT system. Derm: No signs and/or symptoms reported regarding the dermatologic system. Musculoskeletal: No signs and/or symptoms reported regarding the musculoskeletal system. Vital Signs: 19:32 BP 135 / 83 RA Sitting (auto/lg); Pulse 73; Resp 16 S; Temp 97.7; Pulse Ox 100% on R/A; sj1 Weight 117.93 kg (R); Height 6 ft. 2 in. (187.96 cm) (R); Pain 6/10; 19:58 BP 132 / 86; Pulse 71; Resp 18; Pulse Ox 100% on R/A; ld1 19:32 Body Mass Index 33.38 (117.93 kg, 187.96 cm) sj1 Maryam Coma Score: 20:19 Eye Response: spontaneous(4). Verbal Response: oriented(5). Motor Response: obeys rn commands(6). Total: 15. ED Course: 19:27 Patient arrived in ED. wm 19:34 Triage completed. sj1 19:37 Patient has correct armband on for positive identification. sj1 19:37 Arm band placed on right wrist. sj1 19:42 Cruzito Vaca MD is Attending Physician. rn 19:58 No provider procedures requiring assistance completed. ld1 20:06 CT Head Brain wo Cont In Process Unspecified. EDMS 20:27 Rabia Pal, RN is Primary Nurse. ld1 20:28 Patient did not have IV access during this emergency room visit. ld1 Administered Medications: No medications were administered Outcome: 20:21 Discharge ordered by . rn 20:27 Discharged to home ambulatory. ld1 20:27 Condition: stable 20:27 Discharge instructions given to patient, Instructed on discharge instructions, follow up and referral plans. medication usage, Demonstrated understanding of instructions, follow-up care, medications, Prescriptions given X 1. 20:28 Patient left the ED. ld1 Signatures: Dispatcher [employer] EDIN Cruzito Vaca MD MD rn Dibbern, Lauren, RN RN ld1 Laura Taylor Alba Colindres RN RN sj1
--- NOTE | 2020-11-21 20:21 | EDPHYS ---
Physician Documentation [facility] Name: He Schmitz Age: 25 yrs Sex: Male : 1995 Arrival Date: 11/21/2020 Time: 19:27 Bed 10 Private MD: ED Physician Cruzito Vaca HPI: 11/21 19:59 This 25 yrs old Male presents to ER via Ambulatory with complaints of rn Headache - Behind Eye. 19:59 The patient complains of pain to the forehead, right eye and right judaism. The patient rn describes the headache as aching. Onset: The symptoms/episode began/occurred 2 day(s) ago. Associated signs and symptoms: Pertinent negatives: altered mental status, fever, neck stiffness, paresthesias, rash, sinus congestion, sinus tenderness, vision loss, vomiting, weakness, vertigo. Severity of symptoms: At its worst the pain was moderate, in the emergency department the pain has improved. Headache History: Denies prior headaches. The symptoms are alleviated by nothing. the symptoms are aggravated by lights. The patient has not experienced similar symptoms in the past. The patient has not recently seen a physician. Patient reports headache, began in the right eye and saw black and white wavy stripes out of right eye. Progressed to involve pain behind the right eye as well as headache. Reports sensitivity to light. Denies history of headaches or migraines. No head injury. No focal neurological deficit. No fever. Does not feel ill. Feeling better now and has not tried [id number] pain medication. Denies loss of vision.. Historical: - Allergies: 19:34 No Known Allergies; sj1 - Home Meds: 19:34 None [Active]; sj1 - PMHx: 19:34 Anxiety; Autism; Gout; Left ventricular hypertrophy; sj1 - Immunization history:: Adult Immunizations up to date. - Social history:: Smoking status: Patient denies any tobacco usage or history of. Patient/guardian denies using alcohol, street drugs. - Family history:: not pertinent. - Hospitalizations: : No recent hospitalization is reported. ROS: 19:59 Constitutional: Negative for fever, chills, and weight loss, Eyes: Pain behind right rn eye ENT: Negative for injury, pain, and discharge, Neck: Negative for injury, pain, and swelling, Cardiovascular: Negative for chest pain, palpitations, and edema, Respiratory: Negative for shortness of breath, cough, wheezing, and pleuritic chest pain, Abdomen/GI: Negative for abdominal pain, nausea, vomiting, diarrhea, and constipation, Back: Negative for injury and pain, MS/Extremity: Negative for injury and deformity, Skin: Negative for injury, rash, and discoloration, Neuro: Negative for weakness, numbness, tingling, and seizure. 19:59 All other systems are negative. Exam: 19:59 Constitutional: This is a well developed, well nourished patient who is awake, alert, rn and in no acute distress. Head/Face: Normocephalic, atraumatic. Eyes: Pupils equal round and reactive to light, extra-ocular motions intact. Lids and lashes normal. Conjunctiva and sclera are non-icteric and not injected. Cornea within normal limits. Periorbital areas with no swelling, redness, or edema. Clear ocular drainage of the right eye. No foreign body identified. No corneal defect Neck: Trachea midline, no thyromegaly or masses palpated, and no cervical lymphadenopathy. Supple, full range of motion without nuchal rigidity, or vertebral point tenderness. No Meningismus. Cardiovascular: Regular rate and rhythm. No pulse deficits. Respiratory: No increased work of breathing, no retractions or nasal flaring. Skin: Warm, dry MS/ Extremity: Pulses equal, no cyanosis. Neuro: Awake and alert, GCS 15, oriented to person, place, time, and situation. Cranial nerves II-XII grossly intact. Motor strength 5/5 in all extremities. Sensory grossly intact. Cerebellar exam normal. Vital Signs: 19:32 BP 135 / 83 RA Sitting (auto/lg); Pulse 73; Resp 16 S; Temp 97.7; Pulse Ox 100% on R/A; sj1 Weight 117.93 kg (R); Height 6 ft. 2 in. (187.96 cm) (R); Pain 6/10; 19:58 BP 132 / 86; Pulse 71; Resp 18; Pulse Ox 100% on R/A; ld1 19:32 Body Mass Index 33.38 (117.93 kg, 187.96 cm) sj1 Maryam Coma Score: 20:19 Eye Response: spontaneous(4). Verbal Response: oriented(5). Motor Response: obeys rn commands(6). Total: 15. MDM: 19:42 Patient medically screened. rn 20:19 Differential diagnosis: migraine, neoplasm, tension headache, vasomotor headache, rn ocular migraine. Data reviewed: vital signs, nurses notes, radiologic studies, CT scan, and as a result, I will discharge patient. Counseling: I had a detailed discussion with the patient and/or guardian regarding: the historical points, exam findings, and any diagnostic results supporting the discharge/admit diagnosis, radiology results, the need for outpatient follow up, to return to the emergency department if symptoms worsen or persist or if there are any questions or concerns that arise at home. Response to treatment:. Special discussion: I discussed with the patient/guardian in detail that at this point there is no indication for admission to the hospital. It is understood, however, that if the symptoms persist or worsen the patient needs to return immediately for re-evaluation. Based on the history and exam findings, there is no indication for further emergent testing or inpatient evaluation. I discussed with the patient/guardian the need to see the neurologist for further evaluation of the symptoms. I discussed with the patient/guardian the need to see the primary care provider for further evaluation of the symptoms. ED course: CT head negative, most likely ocular migraine. Will dc home with neuro/pcp f/u. . 11/21 19:59 Order name: CT Head Brain wo Cont; Complete Time: 20:19 rn Administered Medications: No medications were administered Disposition Summary: 11/21/20 20:21 Discharge Ordered Location: Home rn Problem: new rn Symptoms: have improved rn Condition: Stable rn Diagnosis - Ophthalmoplegic migraine, not intractable rn Followup: rn - With: Private Physician - When: As needed - Reason: Recheck today's complaints, Re-evaluation by your physician Discharge Instructions: - Discharge Summary Sheet rn - Migraine Headache rn Forms: - Medication Reconciliation Form rn - Thank You Letter rn - Antibiotic return checker - Prescription Opioid Use rn Prescriptions: - Erythromycin 5 mg/gram (0.5 %) Ophthalmic Ointment - apply 1 ribbon by OPHTHALMIC route every 8 hours; 1 tube; Refills: 0, Product rn Selection Permitted Signatures: Dispatcher [employer] EDMS Cruzito Vaca MD MD rn Johnson, Sade, RN RN sj1
[2020-11-21 20:51] VITALS: TEMP 97.7; O2SAT 100
[2020-11-21 20:52] VITALS: BP 132/86
== END 2020-11-21 20:28 | disposition home or self-care (01) ==
LOC: ER 19:23
DX: G43.B0 Ophthalmoplegic migraine, not intractable (principal)
CPT/HCPCS: 70450; 99283

== ENCOUNTER 2020-12-22 22:33 | Emergency (ER) | payer SELFPAY ==
--- NOTE | 2020-12-23 00:13 | EDPHYS ---
Physician Documentation [facility] Name: He Schmitz Age: 25 yrs Sex: Male : 1995 Arrival Date: 12/22/2020 Time: 23:08 Bed Waiting Private MD: ED Physician Camila Kramer HPI: 12/23 00:10 This 25 yrs old Male presents to ER via Ambulatory with complaints of Ear ma2 Pain. 00:10 The patient presents with left ear clogged, mild pain . Onset: The symptoms/episode ma2 began/occurred gradually, 3 day(s) ago. Associated signs and symptoms: Pertinent negatives: lightheadedness, sinus trouble, sore throat, vertigo. Severity of symptoms: At their worst the symptoms were mild in the emergency department the symptoms are unchanged. The patient has experienced similar episodes in the past. Historical: - Allergies: 12/22 23:10 No Known Allergies; vg1 - Home Meds: 23:10 None [Active]; vg1 - PMHx: 23:10 Anxiety; Autism; Gout; Left ventricular hypertrophy; vg1 - PSHx: 23:10 None; vg1 - Immunization history:: Client reports receiving the 2nd dose of the Covid vaccine. - Social history:: Smoking status: Patient denies any tobacco usage or history of. Patient/guardian denies using alcohol, street drugs, The patient lives with family. - Family history:: not pertinent. ROS: 12/23 00:10 Constitutional: Negative for fever, chills, and weight loss. ma2 All other systems are negative. Exam: 00:10 Constitutional: This is a well developed, well nourished patient who is awake, alert, ma2 and in no acute distress. Head/Face: Normocephalic, atraumatic. Eyes: Pupils equal round and reactive to light, extra-ocular motions intact. Lids and lashes normal. Conjunctiva and sclera are non-icteric and not injected. Cornea within normal limits. Periorbital areas with no swelling, redness, or edema. ENT: mild left otitis externa, otherwise Nares patent. No nasal discharge, no septal abnormalities noted. Tympanic membranes are normal and right external auditory canal is clear. Oropharynx with no redness, swelling, or masses, exudates, or evidence of obstruction, uvula midline. Mucous membranes moist. Neck: Trachea midline, no thyromegaly or masses palpated, and no cervical lymphadenopathy. Supple, full range of motion without nuchal rigidity, or vertebral point tenderness. No Meningismus. Chest/axilla: Normal chest wall appearance and motion. Nontender with no deformity. No lesions are appreciated. Cardiovascular: Regular rate and rhythm with a normal S1 and S2. No gallops, murmurs, or rubs. Normal PMI, no JVD. No pulse deficits. Respiratory: Lungs have equal breath sounds bilaterally, clear to auscultation and percussion. No rales, rhonchi or wheezes noted. No increased work of breathing, no retractions or nasal flaring. Abdomen/GI: Soft, non-tender, with normal bowel sounds. No distension or tympany. No guarding or rebound. No evidence of tenderness throughout. Vital Signs: 12/22 23:09 BP 122 / 84; Pulse 65; Resp 16; Temp 98.6; Pulse Ox 100% ; Weight 127.01 kg; Height 6 vg1 ft. 2 in. (187.96 cm); Pain 2/10; 23:09 Body Mass Index 35.95 (127.01 kg, 187.96 cm) vg1 MDM: 12/23 00:10 Differential diagnosis: otitis externa, foreign body, acute otalgia, cerumen impaction. ma2 Data reviewed: vital signs, nurses notes. Counseling: I had a detailed discussion with the patient and/or guardian regarding: the historical points, exam findings, and any diagnostic results supporting the discharge/admit diagnosis, the presence of at least one elevated blood pressure reading (>120/80) during this emergency department visit, the need for outpatient follow up. Response to treatment: the patient's symptoms have markedly improved after treatment. 00:12 Patient medically screened. ma2 00:12 ED course: patient decline pain medication . ma2 Administered Medications: No medications were administered Disposition Summary: 12/23/20 00:12 Discharge Ordered Location: Home ma2 Condition: Stable ma2 Diagnosis - Acute actinic otitis externa, left ear ma2 Followup: ma2 - With: Private Physician - When: Tomorrow - Reason: Continuance of care Discharge Instructions: - Discharge Summary Sheet ma2 - Ear Drops, Adult ma2 - Otitis Externa, [id number] ma2 Forms: - Medication Reconciliation Form ma2 - Thank You Letter ma2 - Antibiotic Education ma2 - Prescription Opioid Use ma2 Prescriptions: - Ciprodex 0.3-0.1 % Otic Drops, Suspension - instill 4 drops by OTIC route every 12 hours for 7 days , for ears ONLY; 1 ma2 Container; Refills: 0, Product Selection Permitted Signatures: Camila Kramer MD MD ma2 Teodora Posada RN RN vg1
--- NOTE | 2020-12-23 00:13 | ER ---
Nurse's Notes [facility] Name: He Schmitz Age: 25 yrs Sex: Male : 1995 Arrival Date: 12/22/2020 Time: 23:08 Bed Waiting Private MD: Diagnosis: Acute actinic otitis externa, left ear Presentation: 12/22 23:09 Chief complaint: Patient states: Left ear pain x2 day, states 'feels like its clogged'. vg1 Denies sore throat. Coronavirus screen: Vaccine status: Patient reports receiving the 2nd dose of the covid vaccine. Client denies travel out of the [place] in the last 14 days. Ebola Screen: Patient negative for fever greater than or equal to 101.5 degrees Fahrenheit, and additional compatible Ebola Virus Disease symptoms. Initial Sepsis Screen: Does the patient meet any 2 criteria? No. Patient's initial sepsis screen is negative. Does the patient have a suspected source of infection? No. Patient's initial sepsis screen is negative. Risk Assessment: Do you want to hurt yourself or someone else? Patient reports no desire to harm self or others. Onset of symptoms was December 20, 2020. 23:09 Method Of Arrival: Ambulatory vg1 23:09 Acuity: NICOLE 4 vg1 Triage Assessment: 23:10 General: Appears in no apparent distress. uncomfortable, Behavior is calm, cooperative. vg1 Pain: Complains of pain in left ear. EENT: Historical: - Allergies: 23:10 No Known Allergies; vg1 - Home Meds: 23:10 None [Active]; vg1 - PMHx: 23:10 Anxiety; Autism; Gout; Left ventricular hypertrophy; vg1 - PSHx: 23:10 None; vg1 - Immunization history:: Client reports receiving the 2nd dose of the Covid vaccine. - Social history:: Smoking status: Patient denies any tobacco usage or history of. Patient/guardian denies using alcohol, street drugs, The patient lives with family. - Family history:: not pertinent. Screenin/15 00:25 Abuse screen: Denies threats or abuse. Nutritional screening: No deficits noted. em Tuberculosis screening: No symptoms or risk factors identified. Fall Risk None identified. Vital Signs: 12/22 23:09 BP 122 / 84; Pulse 65; Resp 16; Temp 98.6; Pulse Ox 100% ; Weight 127.01 kg; Height 6 vg1 ft. 2 in. (187.96 cm); Pain /; 23:09 Body Mass Index 35.95 (127.01 kg, 187.96 cm) vg1 ED Course: 23:08 Patient arrived in ED. vg1 23:10 Triage completed. vg1 23:10 Arm band placed on. vg1 12/23 00:10 Camila Kramer MD is Attending Physician. ma2 00:25 Patient has correct armband on for positive identification. em 00:25 No provider procedures requiring assistance completed. Patient did not have IV access em during this emergency room visit. Administered Medications: No medications were administered Outcome: 00:12 Discharge ordered by . va2 00:25 Discharged to home ambulatory, with family. em 00:25 Condition: stable 00:25 Discharge instructions given to patient, Instructed on discharge instructions, follow up and referral plans. medication usage, Demonstrated understanding of instructions, follow-up care, medications. 00:26 Patient left the ED. em Signatures: Umesh Quach, RN RN em Camila Kramer MD MD va2 Teodora Posada RN RN 1
[2020-12-23 00:34] VITALS: BP 122/84; TEMP 98.6; O2SAT 100
== END 2020-12-23 00:26 | disposition home or self-care (01) ==
LOC: ER 22:33
DX: H60.512 Acute actinic otitis externa, left ear (principal)
CPT/HCPCS: 99281

== ENCOUNTER 2021-01-02 11:44 | Emergency (ER) | payer SELFPAY ==
--- NOTE | 2021-01-02 12:40 | EDPHYS ---
Physician Documentation [facility] Name: He Schmitz Age: 25 yrs Sex: Male : 1995 Arrival Date: 01/02/2021 Time: 11:44 Bed 18 Private MD: ED Physician Camila Kramer HPI: 01/02 12:37 This 25 yrs old Male presents to ER via Ambulatory with complaints of Testicular Pain. ma2 12:37 Onset: The symptoms/episode began/occurred gradually, 2 month(s) ago. Associated signs ma2 and symptoms: Pertinent negatives: diarrhea, hematuria, nausea, vomiting. Severity of symptoms: At their worst the symptoms were mild, in the emergency department the symptoms have resolved. The patient has experienced similar episodes in the past. Has chronic testicular pain, to the right side, pain is on the posterior part of the testicle, radiated to the right groin, no pain at this time, he is not sexually active, no testicular trauma.. Historical: - Allergies: 12:13 No Known Allergies; vg1 - Home Meds: 12:13 None [Active]; vg1 - PMHx: 12:13 Anxiety; Autism; Gout; Left ventricular hypertrophy; vg1 - PSHx: 12:13 None; vg1 - Immunization history:: Client reports receiving the 2nd dose of the Covid vaccine. - Social history:: Smoking status: Patient denies any tobacco usage or history of. Patient/guardian denies using alcohol, street drugs, The patient lives with family. - Family history:: not pertinent. ROS: 12:37 Constitutional: Negative for fever, chills, and weight loss. ma2 12:37 All other systems are negative. Exam: 12:37 Constitutional: This is a well developed, well nourished patient who is awake, alert, ma2 and in no acute distress. ENT: Nares patent. No nasal discharge, no septal abnormalities noted. Tympanic membranes are normal and external auditory canals are clear. Oropharynx with no redness, swelling, or masses, exudates, or evidence of obstruction, uvula midline. Mucous membranes moist. Neck: Trachea midline, no thyromegaly or masses palpated, and no cervical lymphadenopathy. Supple, full range of motion without nuchal rigidity, or vertebral point tenderness. No Meningismus. Chest/axilla: Normal chest wall appearance and motion. Nontender with no deformity. No lesions are appreciated. Cardiovascular: Regular rate and rhythm with a normal S1 and S2. No gallops, murmurs, or rubs. Normal PMI, no JVD. No pulse deficits. Respiratory: Lungs have equal breath sounds bilaterally, clear to auscultation and percussion. No rales, rhonchi or wheezes noted. No increased work of breathing, no retractions or nasal flaring. Abdomen/GI: Soft, non-tender, with normal bowel sounds. No distension or tympany. No guarding or rebound. No evidence of tenderness throughout. Back: No spinal tenderness. No costovertebral tenderness. Full range of motion. Male : Normal genitalia with no discharge or lesions. There is epididymis, on the right side. Scrotal otherwise is unremarkable, no testicular torsion, or tenderness, testicles with normal lie. Skin: Warm, dry with normal turgor. Normal color with no rashes, no lesions, and no evidence of cellulitis. MS/ Extremity: Pulses equal, no cyanosis. Neurovascular intact. Full, normal range of motion. Neuro: Awake and alert, GCS 15, oriented to person, place, time, and situation. Cranial nerves II-XII grossly intact. Motor strength 5/5 in all extremities. Sensory grossly intact. Cerebellar exam normal. Normal gait. Vital Signs: 12:10 BP 117 / 83; Pulse 86; Resp 16; Temp 98.4; Pulse Ox 100% ; Weight 127.01 kg; Height 6 vg1 ft. 2 in. (187.96 cm); Pain 1/10; 12:10 Body Mass Index 35.95 (127.01 kg, 187.96 cm) vg1 MDM: 12:18 Patient medically screened. ma2 12:37 Differential diagnosis: nonspecific abdominal pain, UTI, prostatitis, urethritis. Data ma2 reviewed: vital signs, nurses notes. Counseling: I had a detailed discussion with the patient and/or guardian regarding: the historical points, exam findings, and any diagnostic results supporting the discharge/admit diagnosis, the presence of at least one elevated blood pressure reading (>120/80) during this emergency department visit, the need for outpatient follow up. Response to treatment: the patient's symptoms have markedly improved after treatment. 01/02 12:33 Order name: Urine Dipstick-Ancillary (obtain specimen); Complete Time: 13:15 ma2 Administered Medications: No medications were administered Disposition Summary: 01/02/21 12:40 Discharge Ordered Location: Home az2 Condition: Stable ma2 Diagnosis - Epididymitis - right ma2 Followup: ma2 - With: Private Physician - When: Tomorrow - Reason: Continuance of care Followup: ma2 - With: Harinder Kingston MD - When: Tomorrow - Reason: If symptoms return, Continuance of care Discharge Instructions: - Discharge Summary Sheet ma2 - Epididymitis ma2 Forms: - Medication Reconciliation Form ma2 - Thank You Letter ma2 - Antibiotic Education ma2 - Prescription Opioid Use ma2 Prescriptions: - Prednisone 20 mg Oral Tablet - take 1 tablet by ORAL route once daily for 5 days; 5 tablet; Refills: 0, ma2 Product Selection Permitted - Diclofenac Sodium 75 mg Oral Tablet Sustained Release - take 1 tablet by ORAL route 2 times per day; 30 tablet; Refills: 0, Product ma2 Selection Permitted Signatures: Camila Kramer MD MD ma2 Teodora Posada RN RN vg1
--- NOTE | 2021-01-02 12:40 | ER ---
Nurse's Notes [facility] Name: He Schmitz Age: 25 yrs Sex: Male : 1995 Arrival Date: 01/02/2021 Time: 11:44 Bed 18 Private MD: Diagnosis: Epididymitis-right Presentation: 01/02 12:10 Chief complaint: Patient states: Right testicular and Right groin pain that began x1 vg1 month. States 'sharp stabbing pain' last night. Denies Nausea or vomiting. Coronavirus screen: Vaccine status: Patient reports receiving the 2nd dose of the covid vaccine. Client denies travel out of the [place] in the last 14 days. Ebola Screen: Patient negative for fever greater than or equal to 101.5 degrees Fahrenheit, and additional compatible Ebola Virus Disease symptoms. Initial Sepsis Screen: Does the patient meet any 2 criteria? No. Patient's initial sepsis screen is negative. Does the patient have a suspected source of infection? No. Patient's initial sepsis screen is negative. Risk Assessment: Do you want to hurt yourself or someone else? Patient reports no desire to harm self or others. Onset of symptoms was December 02, 2020. 12:10 Method Of Arrival: Ambulatory vg1 12:10 Acuity: NICOLE 3 vg1 Triage Assessment: 12:13 General: Appears in no apparent distress. comfortable, Behavior is calm, cooperative. vg1 Pain: Complains of pain in groin Pain currently is 1 out of 10 on a pain scale. Historical: - Allergies: 12:13 No Known Allergies; vg1 - Home Meds: 12:13 None [Active]; vg1 - PMHx: 12:13 Anxiety; Autism; Gout; Left ventricular hypertrophy; vg1 - PSHx: 12:13 None; vg1 - Immunization history:: Client reports receiving the 2nd dose of the Covid vaccine. - Social history:: Smoking status: Patient denies any tobacco usage or history of. Patient/guardian denies using alcohol, street drugs, The patient lives with family. - Family history:: not pertinent. Screenin:20 Abuse screen: Denies threats or abuse. Denies injuries from another. Nutritional sl2 screening: No deficits noted. Tuberculosis screening: No symptoms or risk factors identified. Fall Risk None identified. Assessment: 12:20 General: Appears in no apparent distress. well groomed, well developed. sl2 12:20 General: Behavior is calm, cooperative, appropriate for age. Pain: Complains of pain in sl2 pelvis and groin. Neuro: No deficits noted. Vital Signs: 12:10 BP 117 / 83; Pulse 86; Resp 16; Temp 98.4; Pulse Ox 100% ; Weight 127.01 kg; Height 6 vg1 ft. 2 in. (187.96 cm); Pain 02/17; 12:10 Body Mass Index 35.95 (127.01 kg, 187.96 cm) vg1 ED Course: 11:44 Patient arrived in ED. ds1 12:13 Triage completed. vg1 12:13 Arm band placed on. vg1 12:18 Camila Kramer MD is Attending Physician. ma2 12:20 No provider procedures requiring assistance completed. sl2 12:39 Harinder Kingston MD is Referral Physician. ma2 13:13 Yolanda Mckenzie, RN is Primary Nurse. sl2 13:15 No provider procedures requiring assistance completed. Patient did not have IV access aj1 during this emergency room visit. 13:16 Patient has correct armband on for positive identification. aj1 Administered Medications: No medications were administered Outcome: 12:40 Discharge ordered by . ma2 13:15 Discharged to home ambulatory. aj1 13:15 Condition: good 13:15 Discharge instructions given to patient, Instructed on discharge instructions, follow up and referral plans. medication usage, Demonstrated understanding of instructions, follow-up care, medications, Prescriptions given X 2. 13:16 Patient left the ED. aj1 Signatures: Carmencita Colindres, RN RN aj1 Yulia Glez ds1 Camila Kramer MD MD ma2 Teodora Posada RN RN 1 Yolanda Mckenzie, LUIS CARLOS RN 2
[2021-01-02 13:21] LABS: Urine Blood Negative (Negative); Urine Glucose Negative (Negative); Urine Protein Negative (Negative); Urine Specific Gravity >=1.030 (1.005-1.030)
[2021-01-02 13:22] VITALS: BP 117/83; TEMP 98.4; O2SAT 100
== END 2021-01-02 13:16 | disposition home or self-care (01) ==
LOC: ER 11:44
DX: N45.1 Epididymitis (principal)
CPT/HCPCS: 81003; 99282

== ENCOUNTER 2021-02-11 14:14 | Emergency (ER) | payer SELFPAY ==
--- NOTE | 2021-02-11 15:19 | RAD REPORT ---
EXAM DESCRIPTION: RAD - Chest Pa And Lat (2 Views) - 02/11/2021 3:07 pm CLINICAL HISTORY: Chest pain;SOB COMPARISON: Chest Single View dated 09/04/2020; Chest Pa And Lat (2 Views) dated 02/07/2020; Chest Pa And Lat (2 Views) dated 04/28/2019; Chest Pa And Lat (2 Views) dated 02/09/2019 FINDINGS: Lines: None. Lungs: No evidence of edema or pneumonia. Pleural: No significant pleural effusions or pneumothorax. Cardiac: The heart size is within normal limits. Bones: No acute fractures. Other: IMPRESSION: No acute cardiopulmonary disease.
--- NOTE | 2021-02-11 15:26 | EDPHYS ---
Physician Documentation [facility] Name: He Schmitz Age: 25 yrs Sex: Male : 1995 Arrival Date: 02/11/2021 Time: 14:15 Bed Waiting Private MD: ED Physician Cruzito Vaca HPI: 02/11 14:56 This 25 yrs old Male presents to ER via Ambulatory with complaints of Chest Pressure, kb Shortness Of Breath. 14:56 The patient has shortness of breath at rest. Onset: The symptoms/episode began/occurred kb 2 month(s) ago. Duration: The symptoms are intermittent. The patient's shortness of breath is aggravated by nothing, is alleviated by nothing. Associated signs and symptoms: Pertinent positives: chest pain, Pertinent negatives: non-productive cough, productive cough, diaphoresis, dizziness, fever, hemoptysis, loss of consciousness, nausea, numbness in extremities, visual changes, vomiting. Severity of symptoms: At their worst the symptoms were moderate in the emergency department the symptoms are unchanged. The patient has not experienced similar symptoms in the past. The patient has not recently seen a physician. Pt reports "heavy breathing" and chest pressure to lower chest that started a few months ago. Reports no symptoms at time of triage. Pt refuses covid swab. Historical: - Allergies: 14:47 No Known Drug Allergies; ll1 - PMHx: 14:47 Anxiety; Autism; Gout; Left ventricular hypertrophy; Pneumonia; ll1 - PSHx: 14:47 None; ll1 - Immunization history:: Client reports receiving the 2nd dose of the Covid vaccine, Flu vaccine status is unknown. - Social history:: Smoking status: Patient denies any tobacco usage or history of. ROS: 14:54 Constitutional: Negative for fever, chills, and weight loss. kb 14:54 Cardiovascular: Positive for chest pain, Negative for edema, orthopnea, palpitations, paroxysmal nocturnal dyspnea. 14:54 Respiratory: Positive for shortness of breath, Negative for cough, dyspnea on exertion, hemoptysis, orthopnea, pleurisy, sputum production, wheezing. 14:54 All other systems are negative. Exam: 14:54 Constitutional: This is a well developed, well nourished patient who is awake, alert, kb and in no acute distress. Head/Face: Normocephalic, atraumatic. ENT: Moist Mucous membranes Cardiovascular: Regular rate and rhythm with a normal S1 and S2. No gallops, murmurs, or rubs. No pulse deficits. Respiratory: Respirations even and unlabored. No increased work of breathing. Talking in full sentences Skin: Warm, dry with normal turgor. Normal color. MS/ Extremity: Pulses equal, no cyanosis. Neurovascular intact. Full, normal range of motion. Neuro: Awake and alert, GCS 15, oriented to person, place, time, and situation. Moves all extremities. Normal gait. Psych: Awake, alert, with orientation to person, place and time. Behavior, mood, and affect are within normal limits. Vital Signs: 14:42 BP 137 / 92; Pulse 87; Resp 17; Temp 97.7; Pulse Ox 99% ; Weight 127.01 kg; Height 6 ll1 ft. 2 in. (187.96 cm); Pain 3/10; 14:42 Body Mass Index 35.95 (127.01 kg, 187.96 cm) ll1 MDM: 14:49 Patient medically screened. kb 14:54 Data reviewed: vital signs, nurses notes. Data interpreted: Pulse oximetry: on room air kb is 99 %. Interpretation: normal. 15:24 Counseling: I had a detailed discussion with the patient and/or guardian regarding: the kb historical points, exam findings, and any diagnostic results supporting the discharge/admit diagnosis, radiology results, the need for outpatient follow up, a family practitioner, to return to the emergency department if symptoms worsen or persist or if there are any questions or concerns that arise at home. 02/11 14:49 Order name: Chest Pa And Lat (2 Views) XRAY; Complete Time: 15:24 kb 02/11 14:49 Order name: EKG; Complete Time: 14:49 kb 02/11 14:49 Order name: EKG - Nurse/Tech; Complete Time: 14:49 kb Administered Medications: No medications were administered Disposition: 17:48 Co-signature as Attending Physician, Cruzito Vaca MD I agree with the assessment and rn plan of care. Attestation: The patient's history, exam findings, diagnostics, and a summary of any interventions or procedures was reviewed in detail with Madison BENNETT. Chart complete. Disposition Summary: 02/11/21 15:25 Discharge Ordered Location: Home kb Condition: Stable kb Diagnosis - Dyspnea kb Followup: kb - With: Emergency Department - When: As needed - Reason: Worsening of condition Followup: kb - With: Private Physician - When: 2 - 3 days - Reason: Recheck today's complaints, Continuance of care, Re-evaluation by your physician Discharge Instructions: - Discharge Summary Sheet kb Forms: - Medication Reconciliation Form kb - Thank You Letter kb - Antibiotic Education kb - Prescription Opioid Use kb - Work release form ll1 Signatures: Dispatcher [employer] EDMadison Kong, JACKIE-C JACKIE-Cruzito Souza MD MD rn Richard Munoz RN RN ll1
--- NOTE | 2021-02-11 15:26 | ER ---
Nurse's Notes [facility] Name: He Schmitz Age: 25 yrs Sex: Male : 1995 Arrival Date: 02/11/2021 Time: 14:15 Bed Waiting Private MD: Diagnosis: Dyspnea Presentation: 02/11 14:42 Chief complaint: Patient states: SOB off/on today, has been happening for about 1 ll1 month. Pressure noted to lower lungs. Denies cough/congestion. Coronavirus screen: Vaccine status: Patient reports receiving the 2nd dose of the covid vaccine. Client denies travel out of the [place] in the last 14 days. difficulty breathing, shortness of breath. Ebola Screen: Patient denies travel to an Ebola-affected area in the 21 days before illness onset. Initial Sepsis Screen: Does the patient meet any 2 criteria? No. Patient's initial sepsis screen is negative. Does the patient have a suspected source of infection? No. Patient's initial sepsis screen is negative. Risk Assessment: Do you want to hurt yourself or someone else? Patient reports no desire to harm self or others. Onset of symptoms was January 11, 2021. 14:42 Method Of Arrival: Ambulatory ll1 14:42 Acuity: NICOLE 3 ll1 Triage Assessment: 14:50 General: Appears in no apparent distress. Behavior is calm, cooperative, appropriate ll1 for age. Pain: Complains of pain in lower chest Quality of pain is described as pressure. Neuro: No deficits noted. Cardiovascular: Reports chest pain, shortness of breath, Heart tones S1 S2 Capillary refill < 3 seconds Clubbing of nail beds is absent Patient's skin is warm and dry. Rhythm is regular. Respiratory: Reports shortness of breath Breath sounds are clear bilaterally. Historical: - Allergies: 14:47 No Known Drug Allergies; ll1 - PMHx: 14:47 Anxiety; Autism; Gout; Left ventricular hypertrophy; Pneumonia; ll1 - PSHx: 14:47 None; ll1 - Immunization history:: Client reports receiving the 2nd dose of the Covid vaccine, Flu vaccine status is unknown. - Social history:: Smoking status: Patient denies any tobacco usage or history of. Screenin:02 Abuse screen: Denies threats or abuse. Nutritional screening: No deficits noted. ll1 Tuberculosis screening: No symptoms or risk factors identified. Fall Risk Total Ma Fall Scale indicates No Risk (0-24 pts). Assessment: 15:50 Reassessment: No changes from previously documented assessment. Patient and/or family ll1 updated on plan of care and expected duration. Pain level reassessed. Patient is alert, oriented x 3, equal unlabored respirations, skin warm/dry/pink. Pain: Pain does not radiate. Pain began 1 day ago. Vital Signs: 14:42 BP 137 / 92; Pulse 87; Resp 17; Temp 97.7; Pulse Ox 99% ; Weight 127.01 kg; Height 6 ll1 ft. 2 in. (187.96 cm); Pain 3/10; 14:42 Body Mass Index 35.95 (127.01 kg, 187.96 cm) ll1 ED Course: 14:15 Patient arrived in ED. ds1 14:47 Triage completed. ll1 14:48 Arm band placed on. ll1 14:49 Madison Liu FNP-C is [facility]. kb 14:49 Cruzito Vaca MD is Attending Physician. kb 14:50 Patient has correct armband on for positive identification. Cardiac monitoring not ll1 applicable on this patient. 14:50 No provider procedures requiring assistance completed. Patient did not have IV access ll1 during this emergency room visit. Patient maintains SpO2 saturation greater than 95% on room air. 14:54 EKG completed in triage. Results shown to MD. ll1 15:07 Chest Pa And Lat (2 Views) XRAY In Process Unspecified. EDMS Administered Medications: No medications were administered Outcome: 15:25 Discharge ordered by . kb 16:02 Patient left the ED. ll1 16:02 Discharged to home ambulatory. ll1 16:02 Condition: stable 16:02 Discharge instructions given to patient, family, Instructed on discharge instructions, follow up and referral plans. Demonstrated understanding of instructions, follow-up care. Signatures: Dispatcher [employer] EDMS Madison Liu FNP-C FNP-Ckb Sanford, Demi ds1 Richard Munoz RN RN ll1
[2021-02-11 16:17] VITALS: BP 137/92; TEMP 97.7; O2SAT 99
--- NOTE | 2021-02-12 11:24 | EKG ---
Test Date: 2021-02-11 Test Time: 14:56:33 [employer]semblies Supervisor: MANDA MEASUREMENT RESULTS: Intervals: Rate: 76 GA: 136 QRSD: 90 QT: 398 QTc: 447 Newell: P: 52 GA: 136 QRS: -19 T: 22 INTERPRETIVE STATEMENTS: Normal sinus rhythm Minimal voltage criteria for LVH, may be normal variant Borderline ECG Compared to ECG 07/20/2020 00:32:46 T-wave abnormality no longer present Electronically Signed On 02-12-21 11:22:21 MANAGER DIALYSIS by Guille Marin
== END 2021-02-11 16:02 | disposition home or self-care (01) ==
LOC: ER 14:14
DX: R06.00 Dyspnea, unspecified (principal)
CPT/HCPCS: 71046; 93005; 99284

== ENCOUNTER 2021-05-14 08:31 | Emergency (ER) | payer SELFPAY ==
[2021-05-14 09:13] LABS: Absolute Lymphocytes (CBC) 1.9 K/uL (0.7-4.9); Hematocrit 44.3 % (39.6-49.0); Lymphocytes % 25.4 % (15.3-44.8); MPV 9.4 fL (7.6-11.3); RBC Red Blood Cell Count 5.23 M/uL (4.33-5.43)
[2021-05-14 09:28] LABS: ALT/SGPT 70 U/L (12-78); AST/SGOT 34 U/L (15-37); Albumin 3.8 g/dL (3.4-5.0); Alkaline Phosphatase 64 U/L (45-117); BUN Blood Urea Nitrogen 13 mg/dL (7-18); Bicarbonate 25 mmol/L (21-32); Bilirubin Total 0.5 mg/dL (0.2-1.0); Glucose Level 97 mg/dL (74-106); Lipase 131 U/L (73-393); Potassium 3.6 mmol/L (3.5-5.1); Protein, Total 7.7 g/dL (6.4-8.2); Sodium Level 141 mmol/L (136-145)
[2021-05-14] MEDS ORDERED: FAMOTIDINE 20 MG/2 ML VIAL IV ONE (09:40)
--- NOTE | 2021-05-14 10:32 | RAD REPORT ---
EXAM DESCRIPTION: CTAbdomen Pelvis W Contrast - 05/14/2021 9:54 am CLINICAL HISTORY: ABD PAIN COMPARISON: No comparisons TECHNIQUE: CT of the abdomen and pelvis was performed. All CT scans are performed using dose optimization technique as appropriate and may include automated exposure control or mA/KV adjustment according to patient size. FINDINGS: Lower chest: No acute abnormality. Liver: No acute abnormality or suspicious lesions. Biliary: No biliary ductal dilatation. Stomach: No significant focal abnormality. Duodenum: No significant focal abnormality. Pancreas: No significant abnormality. Spleen: No significant abnormality. Adrenal: No suspicious lesions. Kidney/ureter: No hydronephrosis. No renal calculi. Malrotated kidneys. Retroperitoneum: No retroperitoneal adenopathy. Vascular: No aneurysm. Bowel: No significant focal abnormality. Normal appendix . Peritoneum: No ascites or free air. Fat containing inguinal hernia . Bladder: Grossly unremarkable. Reproductive: No adnexal masses. Bones: No acute fracture. Other: n/a IMPRESSION: No acute intra-abdominal or pelvic finding.
--- NOTE | 2021-05-14 10:37 | EDPHYS ---
Physician Documentation [facility] Name: He Schmitz Age: 26 yrs Sex: Male : 1995 Arrival Date: 05/14/2021 Time: 08:33 Bed 18 Private MD: ED Physician Maksim Blackman HPI: 05/14 09:02 This 26 yrs old Male presents to ER via Ambulatory with complaints of Abdominal Pain, kb Epigastric Pain. 09:02 The patient presents with abdominal pain in the epigastric area. Onset: The kb symptoms/episode began/occurred this morning. The symptoms do not radiate. Associated signs and symptoms: none. The symptoms are described as constant. Modifying factors: The symptoms are alleviated by nothing, the symptoms are aggravated by nothing. Severity of pain: At its worst the pain was mild moderate in the emergency department the pain is unchanged. The patient has not experienced similar symptoms in the past. The patient has not recently seen a physician. Historical: - Allergies: 08:38 No Known Allergies; jd3 - Home Meds: 08:38 None [Active]; jd3 - PMHx: 08:38 Autism; Gout; Left ventricular hypertrophy; Pneumonia; Anxiety; jd3 - PSHx: 08:38 None; jd3 - Immunization history:: Adult Immunizations up to date, Client reports receiving the 2nd dose of the Covid vaccine, Flu vaccine is not up to date. - Social history:: Smoking status: Patient denies any tobacco usage or history of. ROS: 08:56 Constitutional: Negative for fever, chills, and weight loss. kb 08:56 Abdomen/GI: Positive for abdominal pain, Negative for nausea, vomiting, and diarrhea. 08:56 All other systems are negative. Exam: 08:57 Constitutional: This is a well developed, well nourished patient who is awake, alert, kb and in no acute distress. Head/Face: Normocephalic, atraumatic. ENT: Moist Mucous membranes Cardiovascular: Regular rate and rhythm with a normal S1 and S2. No gallops, murmurs, or rubs. No pulse deficits. Respiratory: Respirations even and unlabored. No increased work of breathing. Talking in full sentences Skin: Warm, dry with normal turgor. Normal color. MS/ Extremity: Pulses equal, no cyanosis. Neurovascular intact. Full, normal range of motion. Neuro: Awake and alert, GCS 15, oriented to person, place, time, and situation. Moves all extremities. Normal gait. Psych: Awake, alert, with orientation to person, place and time. Behavior, mood, and affect are within normal limits. 08:57 Abdomen/GI: Inspection: abdomen appears normal, Bowel sounds: normal, in all quadrants, Palpation: soft, in all quadrants, nontender, in all quadrants. Vital Signs: 08:39 BP 136 / 77; Pulse 69; Resp 16; Temp 98.0(O); Pulse Ox 99% on R/A; Weight 122.47 kg jd3 (R); Height 6 ft. 2 in. (187.96 cm) (R); Pain 210; 08:39 Body Mass Index 34.67 (122.47 kg, 187.96 cm) jd3 MDM: 08:38 Patient medically screened. kb 08:56 Data reviewed: vital signs, nurses notes. Data interpreted: Pulse oximetry: on room air kb is 99 %. Interpretation: normal. 10:36 Counseling: I had a detailed discussion with the patient and/or guardian regarding: the kb historical points, exam findings, and any diagnostic results supporting the discharge/admit diagnosis, lab results, radiology results, the need for outpatient follow up, a family practitioner, to return to the emergency department if symptoms worsen or persist or if there are any questions or concerns that arise at home. 05/14 08:39 Order name: CBC with Diff; Complete Time: 09:20 kb 05/14 08:39 Order name: CMP; Complete Time: 09:28 kb 05/14 08:39 Order name: Lipase; Complete Time: 09:28 kb 05/14 08:39 Order name: IV Saline Lock; Complete Time: 09:10 kb 05/14 09:28 Order name: CT Abd/Pelvis - IV Contrast Only; Complete Time: 10:36 kb 05/14 08:39 Order name: Labs collected and sent; Complete Time: 09:10 kb Administered Medications: 09:57 Not Given (Patient Refused): Pepcid (famotidine) 20 mg IVP once; dilute with 10 mL 0.9% ap3 NaCl; give over 2 minutes Disposition: 12:58 Co-signature as Attending Physician, Maksim Blackman MD I agree with the assessment and kdr plan of care. Disposition Summary: 05/14/21 10:37 Discharge Ordered Location: Home kb Condition: Stable kb Diagnosis - Upper abdominal pain, unspecified kb Followup: kb - With: Emergency Department - When: As needed - Reason: Worsening of condition Followup: kb - With: Private Physician - When: 2 - 3 days - Reason: Recheck today's complaints, Continuance of care, Re-evaluation by your physician Discharge Instructions: - Discharge Summary Sheet kb - Gastroesophageal Reflux Disease, Adult kb - Abdominal Pain, Adult, [id number] kb Forms: - Medication Reconciliation Form kb - Thank You Letter kb - Antibiotic Education kb - Prescription Opioid Use kb Signatures: Dispatcher [employer] EDMS Madison Liu, MANDREL PULLER-C MANDREL PULLER-Maksim Nichole MD MD kdr Davies, Jonathon RN RN jd3 Christy Simons RN RN ap3
--- NOTE | 2021-05-14 10:37 | ER ---
Nurse's Notes [facility] Name: He Schmitz Age: 26 yrs Sex: Male : 1995 Arrival Date: 05/14/2021 Time: 08:33 Bed 18 Private MD: Diagnosis: Upper abdominal pain, unspecified Presentation: 05/14 08:37 Chief complaint: Patient states: "started having upper stomach pain this morning around jd3 0700.". Coronavirus screen: At this time, the client does not indicate any symptoms associated with coronavirus-19. Ebola Screen: No symptoms or risks identified at this time. Initial Sepsis Screen: Does the patient meet any 2 criteria? No. Patient's initial sepsis screen is negative. Does the patient have a suspected source of infection? No. Patient's initial sepsis screen is negative. Risk Assessment: Do you want to hurt yourself or someone else? Patient reports no desire to harm self or others. Onset of symptoms was May 14, 2021. 08:37 Method Of Arrival: Ambulatory j 08:37 Acuity: NICOLE 3 jd3 Historical: - Allergies: 08:38 No Known Allergies; jd3 - Home Meds: 08:38 None [Active]; jd3 - PMHx: 08:38 Autism; Gout; Left ventricular hypertrophy; Pneumonia; Anxiety; jd3 - PSHx: 08:38 None; jd3 - Immunization history:: Adult Immunizations up to date, Client reports receiving the 2nd dose of the Covid vaccine, Flu vaccine is not up to date. - Social history:: Smoking status: Patient denies any tobacco usage or history of. Screenin:58 Abuse screen: Denies threats or abuse. Nutritional screening: No deficits noted. ap3 Tuberculosis screening: No symptoms or risk factors identified. Fall Risk None identified. Assessment: 09:57 General: Appears in no apparent distress. Behavior is calm, cooperative. Pain: ap3 Complains of pain in abdomen. Neuro: Level of Consciousness is awake, alert, obeys commands, Oriented to person, place, time, situation. Cardiovascular: Patient's skin is warm and dry. Respiratory: Airway is patent Respiratory effort is even, unlabored. GI: Bowel sounds present X 4 quads. Abd is soft and non tender. 10:30 Reassessment: Patient and/or family updated on plan of care and expected duration. Pain ap3 level reassessed. Patient is alert, oriented x 3, equal unlabored respirations, skin warm/dry/pink. Patient states feeling better. Patient states symptoms have improved. Vital Signs: 08:39 BP 136 / 77; Pulse 69; Resp 16; Temp 98.0(O); Pulse Ox 99% on R/A; Weight 122.47 kg jd3 (R); Height 6 ft. 2 in. (187.96 cm) (R); Pain 2/10; 08:39 Body Mass Index 34.67 (122.47 kg, 187.96 cm) jd3 ED Course: 08:33 Patient arrived in ED. am2 08:34 Madison [facility]C [facility] kb 08:34 Maksim Blackman MD is Attending Physician. kb 08:38 Triage completed. jd3 08:39 Arm band placed on. jd3 09:10 Inserted saline lock: 20 gauge in left antecubital area, using aseptic technique. jd3 09:34 Christy Simons, RN is Primary Nurse. ap3 09:56 CT Abd/Pelvis - IV Contrast Only In Process Unspecified. EDMS 09:58 Patient has correct armband on for positive identification. Bed in low position. Call ap3 light in reach. Side rails up X2. Pulse ox on. NIBP on. Door closed. Noise minimized. 11:35 No provider procedures requiring assistance completed. IV discontinued, intact, ap3 bleeding controlled, No redness/swelling at site. Pressure dressing applied. Administered Medications: 09:57 Not Given (Patient Refused): Pepcid (famotidine) 20 mg IVP once; dilute with 10 mL 0.9% ap3 NaCl; give over 2 minutes Outcome: 10:37 Discharge ordered by . kb 11:35 Discharged to home ambulatory. ap3 11:35 Condition: good 11:35 Discharge instructions given to patient, Instructed on discharge instructions, follow up and referral plans. Demonstrated understanding of instructions, follow-up care. 11:36 Patient left the ED. ap3 Signatures: Dispatcher [employer] EDWY Madison Liu FNP-C FNP-Christy Sanchez am2 John Urena RN RN jd3 Prokisch, Christy, RN RN ap3
[2021-05-14 21:06] VITALS: BP 136/77; TEMP 98; O2SAT 99
== END 2021-05-14 11:36 | disposition home or self-care (01) ==
LOC: ER 08:31
DX: R10.13 Epigastric pain (principal)
CPT/HCPCS: 36415; 74177; 80053; 83690; 85025; Q9967

== ENCOUNTER 2021-09-16 08:48 | Emergency (ER) | payer SELFPAY ==
--- OUTSIDE RECORDS SUMMARY | 2021-09-16 08:54 | XMS REPORT | Continuity of Care Document ---
:1995 Author Organization [facility] t Address [address] [place] [address] Dr. Leroy [address] [place] [id number] Care Team Providers Name Role Phone FERNANDO Attending Clinician Unavailable FERNANDO Admitting Clinician Unavailable Problems This patient has no known problems. Allergies, Adverse Reactions, Alerts This patient has no known allergies or adverse reactions. Medications This patient has no known medications. Procedures This patient has no known procedures. Encounters Start End Encounter Admission Attending Care Care Encounter Source Date/Time Date/Time Type Type Clinicians Facility Department ID 2021-08-20 2021-08-20 Outpatient KRISTI LARSON [id number] 09:38:00 09:38:00 H 0713 [facility] h Program Results This patient has no known results.
[2021-09-16 10:22] LABS: Urine Blood Negative (Negative); Urine Glucose Negative (Negative); Urine Protein Negative (Negative); Urine Specific Gravity 1.025 (1.005-1.030)
--- NOTE | 2021-09-16 10:26 | RAD REPORT ---
EXAM DESCRIPTION: US - Scrotum Testicles - 09/16/2021 9:59 am CLINICAL HISTORY: PAIN COMPARISON: Abdomen Pelvis W Contrast dated 05/14/2021 FINDINGS: The right testicle 3.7 x 1.7 x 2.7 cm with volume of 8.7 cc. No intratesticular masses or evidence of testicular torsion. The left testicle 2.8 x 1.8 x 1.9 cm with volume of 4.9 cc. No intratesticular masses or evidence of testicular torsion. Both epididymides are normal in size and appearance. No pathologic fluid collections. Left-sided varicocele. IMPRESSION: Bilateral testicular blood flow. Left-sided varicocele.
[2021-09-16 10:29] LABS: Absolute Lymphocytes (CBC) 1.4 K/uL (0.7-4.9); Hematocrit 43.8 % (39.6-49.0); Lymphocytes % 20.4 % (15.3-44.8); MCV 84.4 fL (80-100); MPV 8.6 fL (7.6-11.3); RBC Red Blood Cell Count 5.19 M/uL (4.33-5.43)
[2021-09-16 10:38] LABS: Albumin 3.9 g/dL (3.4-5.0); Bilirubin Total 0.5 mg/dL (0.2-1.0); Potassium 3.8 mmol/L (3.5-5.1)
[2021-09-16 10:43] LABS: Urine Bacteria <20 /HPF (<20); Urine Mucus 1+ /HPF (None Seen); Urine RBC None Seen /HPF (None Seen)
--- NOTE | 2021-09-16 12:01 | RAD REPORT ---
EXAM DESCRIPTION: CTAbdomen Pelvis W Contrast - 09/16/2021 11:51 am CLINICAL HISTORY: lower abdomen pain COMPARISON: Abdomen Pelvis W Contrast dated 05/14/2021 TECHNIQUE: CT of the abdomen and pelvis was performed. All CT scans are performed using dose optimization technique as appropriate and may include automated exposure control or mA/KV adjustment according to patient size. FINDINGS: Lower chest: No acute abnormality. Liver: No acute abnormality or suspicious lesions. Biliary: No biliary ductal dilatation. Stomach: No significant focal abnormality. Duodenum: No significant focal abnormality. Pancreas: No significant abnormality. Spleen: No significant abnormality. Adrenal: No suspicious lesions. Kidney/ureter: No hydronephrosis. No renal calculi. Retroperitoneum: No retroperitoneal adenopathy. Vascular: No aneurysm. Bowel: No significant focal abnormality. Normal appendix. Peritoneum: No ascites or free air. Small fat containing inguinal hernias. Bladder: Grossly unremarkable. Reproductive: No adnexal masses. Bones: No acute fracture. Pars defects at L5. Trace anterolisthesis. Other: n/a IMPRESSION: No acute intra-abdominal or pelvic finding. Normal appendix.
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
--- NOTE | 2021-09-16 12:22 | EDPHYS ---
Physician Documentation [facility] Name: He Schmitz Age: 26 yrs Sex: Male : 1995 Arrival Date: 09/16/2021 Time: 08:50 Bed 2 Private MD: LIZET Physician Lonnie Morris HPI: 09/16 09:20 This 26 yrs old Male presents to ER via Ambulatory with complaints of Diarrhea. cp 09:20 The patient presents with tenderness, of the suprapubic area, pain. cp 09:20 Associated signs and symptoms: Pertinent positives: diarrhea, Pertinent negatives: cp constipation, dysuria, fever, vomiting. Severity of symptoms: in the emergency department the symptoms are unchanged. Historical: - Allergies: 08:56 No Known Allergies; iw - Home Meds: 08:56 None [Active]; iw - PMHx: 08:56 Anxiety; Autism; Gout; Left ventricular hypertrophy; Pneumonia; iw - Immunization history:: Client reports receiving the 2nd dose of the Covid vaccine. - Social history:: Smoking status: Patient denies any tobacco usage or history of. ROS: 09:30 Constitutional: Negative for body aches, chills, fever, poor PO intake, weight loss. cp 09:30 Eyes: Negative for injury, pain, redness, and discharge. cp 09:30 ENT: Negative for drainage from ear(s), ear pain, sore throat, difficulty swallowing, difficulty handling secretions. 09:30 Cardiovascular: Negative for chest pain, palpitations. 09:30 Respiratory: Negative for cough, shortness of breath, wheezing. 09:30 Abdomen/GI: Positive for abdominal pain, diarrhea, of the suprapubic area, Negative for vomiting, constipation, anorexia. 09:30 Back: Negative for radiated pain. 09:30 : Negative for hematuria, foul smelling urine, penile discharge, penile pain. 09:30 Skin: Negative for rash. 09:30 All other systems are negative. Exam: 09:33 Constitutional: The patient appears in no acute distress, alert, awake, non-toxic, well cp developed, well nourished. 09:33 Head/Face: Normocephalic, atraumatic. cp 09:33 Eyes: Periorbital structures: appear normal, Conjunctiva: normal, no exudate, no injection, Sclera: no appreciated abnormality, Lids and lashes: appear normal, bilaterally. 09:33 ENT: External ear(s): are unremarkable, Nose: is normal, Mouth: Lips: moist, Oral mucosa: pink and intact, moist, Posterior pharynx: Airway: no evidence of obstruction, patent. 09:33 Chest/axilla: Inspection: normal. 09:33 Cardiovascular: Rate: normal, Rhythm: regular. 09:33 Respiratory: the patient does not display signs of respiratory distress, Respirations: normal, no use of accessory muscles, no retractions, labored breathing, is not present, Breath sounds: are clear throughout, no decreased breath sounds, no stridor, no wheezing. 09:33 Abdomen/GI: Inspection: abdomen appears normal, Bowel sounds: active, all quadrants, Palpation: soft, in all quadrants, mild abdominal tenderness, in the suprapubic area. 09:33 Back: pain, is absent, ROM is normal. 09:33 Skin: cellulitis, is not appreciated, no rash present. Vital Signs: 08:54 BP 143 / 82; Pulse 75; Resp 16; Temp 97.6; Pulse Ox 99% on R/A; Weight 117.93 kg; iw Height 6 ft. 2 in. (187.96 cm); 11:02 BP 111 / 71; Pulse 54; Resp 16; Pulse Ox 100% ; bp 12:23 BP 117 / 51; Pulse 52; Resp 16; Pulse Ox 100% ; bp 08:54 Body Mass Index 33.38 (117.93 kg, 187.96 cm) iw MDM: 08:57 Patient medically screened. [facility] 12:20 Data reviewed: vital signs, nurses notes, lab test result(s), radiologic studies, CT cp scan, ultrasound. 12:20 Differential diagnosis: appendicitis, UTI, prostatitis, urethritis, inguinal hernia, cp epididymitis, testicular torsion. Counseling: I had a detailed discussion with the patient and/or guardian regarding: the historical points, exam findings, and any diagnostic results supporting the discharge/admit diagnosis, lab results, radiology results, to return to the emergency department if symptoms worsen or persist or if there are any questions or concerns that arise at home. 09/16 09:12 Order name: CBC with Diff; Complete Time: 10:32 09/16 10:32 Interpretation: Reviewed. 09/16 09:12 Order name: CMP; Complete Time: 12:06 cp 09/16 12:06 Interpretation: Normal except: ALT 83; GLOB 4.1; A/G 1.0. cp 09/16 09:12 Order name: Lipase; Complete Time: 12:06 cp 09/16 09:12 Order name: Urine Microscopic Only; Complete Time: 12:06 cp 09/16 09:12 Order name: US Scrotum Testicles; Complete Time: 10:32 cp 09/16 10:33 Interpretation: Report reviewed. cp 09/16 10:22 Order name: Urine Dipstick-Ancillary; Complete Time: 10:32 EDMS 09/16 10:33 Interpretation: Reviewed. cp 09/16 09:12 Order name: IV Saline Lock; Complete Time: 10:12 cp 09/16 09:12 Order name: Labs collected and sent; Complete Time: 10:12 cp 09/16 09:12 Order name: Urine Dipstick-Ancillary (obtain specimen); Complete Time: 10:23 cp 09/16 10:34 Order name: CT Abd/Pelvis - IV Contrast Only; Complete Time: 12:06 cp Administered Medications: No medications were administered Disposition Summary: 09/16/21 12:21 Discharge Ordered Location: Home cp Problem: new cp Symptoms: have improved cp Condition: Stable cp Diagnosis - Diarrhea, unspecified cp - Bilateral inguinal hernia, without obstruction or gangrene, not specified as cp recurrent - Lower abdominal pain, unspecified cp Followup: cp - With: Mynor Kelley MD - When: 2 - 3 days - Reason: inguinal hernias Discharge Instructions: - Discharge Summary Sheet cp - Abdominal Pain, Adult cp - Food Choices to Help Relieve Diarrhea, Adult cp - Diarrhea, Adult cp - Hernia, Adult cp Forms: - Medication Reconciliation Form cp - Thank You Letter cp - Antibiotic Education cp - Prescription Opioid Use cp Prescriptions: - Ibuprofen 800 mg Oral Tablet - take 1 tablet by ORAL route every 8 hours As needed take with food; 30 tablet; cp Refills: 0, Product Selection Permitted Signatures: Dispatcher [employer] Lonnie Kent MD MD cha Williams, Irene, RN RN Lonnie Tillman PA PA cp Corrections: (The following items were deleted from the chart) 12:06 12:06 Normal except: ALT 83. cp cp
[2021-09-16 13:15] VITALS: TEMP 97.6
[2021-09-16 13:27] VITALS: O2SAT 100
[2021-09-16 13:29] VITALS: BP 117/51
== END 2021-09-16 12:44 | disposition home or self-care (01) ==
LOC: ER 08:48
DX: R19.7 Diarrhea, unspecified (principal); K40.20 Bilateral inguinal hernia, without obstruction or gangrene, not specified as recurrent; R10.30 Lower abdominal pain, unspecified
CPT/HCPCS: 36415; 74177; 76870; 80053; 81003; 81015; 83690; 85025; 99284; Q9967

== ENCOUNTER 2021-09-19 23:12 | Emergency (ER) | payer SELFPAY ==
--- OUTSIDE RECORDS SUMMARY | 2021-09-19 23:15 | XMS REPORT | Continuity of Care Document ---
:1995 Author Organization [facility] t Address [address] [place] [address] Dr. Leroy [address] [place] [id number] Care Team Providers Name Role Phone FERNANDO [...] LARSON [address] 09:38:00 09:38:00 H 0713 [facility] h Program Results This patient has no known results.
[2021-09-20] MEDS ORDERED: ONDANSETRON 4 MG/2 ML VIAL ONE (00:17)
[2021-09-20] MEDS ORDERED: NA CHLORIDE 0.9% 1,000 ML ONE (00:18)
[2021-09-20 00:36] LABS: Urine Blood Negative (Negative); Urine Glucose Negative (Negative); Urine Protein Negative (Negative)
[2021-09-20 00:42] LABS: Absolute Lymphocytes (CBC) 0.5 K/uL (0.7-4.9); Hematocrit 41.5 % (39.6-49.0); Lymphocytes % 6.3 % (15.3-44.8); MCV 83.2 fL (80-100); MPV 9.1 fL (7.6-11.3); RBC Red Blood Cell Count 4.99 M/uL (4.33-5.43)
[2021-09-20 01:12] LABS: Albumin 3.9 g/dL (3.4-5.0); Bilirubin Total 0.8 mg/dL (0.2-1.0); Magnesium 2.2 mg/dL (1.8-2.4); Potassium 3.5 mmol/L (3.5-5.1); Protein, Total 7.9 g/dL (6.4-8.2)
[2021-09-20 01:19] LABS: Urine Bacteria <20 /HPF (<20); Urine RBC <5 /HPF (None Seen)
--- NOTE | 2021-09-20 02:09 | ER ---
Nurse's Notes [facility] Name: He Schmitz Age: 26 yrs Sex: Male : 1995 Arrival Date: 09/19/2021 Time: 23:14 Bed 5 Private MD: Diagnosis: Fever, unspecified;Cough;viral illness Presentation: 09/19 23:30 Chief complaint: Parent and/or Guardian states: "He has a cough, been running fever and vc1 complaining of a headache.". Coronavirus screen: Vaccine status: cough unrelated to allergies, fever, headache, Client presents with at least one sign or symptom that may indicate coronavirus-19. Standard/surgical mask placed on the client. Provider contacted for isolation considerations. Ebola Screen: No symptoms or risks identified at this time. Initial Sepsis Screen: Does the patient meet any 2 criteria? RR > 20 per min. HR > 90 bpm. Yes Does the patient have a suspected source of infection? Yes: Productive cough/pneumonia. 23:30 Method Of Arrival: Ambulatory vc1 23:30 Risk Assessment: Do you want to hurt yourself or someone else? Patient reports no vc1 desire to harm self or others. Onset of symptoms is unknown. 23:30 Acuity: NICOLE 3 vc1 Triage Assessment: 09/20 00:00 Headache History: Denies prior headaches. General: Appears in no apparent distress. vc1 uncomfortable, ill, Behavior is flat. Pain: Complains of pain in top of head Pain does not radiate. Pain began gradually, Also complains of no other associated symptoms. Historical: - Allergies: 09/19 23:30 No Known Allergies; vc1 - PMHx: 23:30 Anxiety; Autism; Gout; Left ventricular hypertrophy; Pneumonia; vc1 - Immunization history:: Adult Immunizations up to date. - Social history:: Smoking status: Patient denies any tobacco usage or history of. Screenin:30 Abuse screen: Denies threats or abuse. Nutritional screening: No deficits noted. vc1 Tuberculosis screening: No symptoms or risk factors identified. Fall Risk None identified. Assessment: 23:30 Pain: Complains of pain in forehead Pain does not radiate. Pain. Neuro: Level of vc1 Consciousness is awake, obeys commands, lethargic. 09/20 02:06 General: Patient refused covid swab and strep swab. tw5 Vital Signs: 09/19 23:41 BP 123 / 87; Pulse 110; Resp 26; Temp 99.8(O); Pulse Ox 97% ; vc1 09/20 00:19 BP 132 / 83; Pulse 109; Resp 26; Temp 100.1(O); Pulse Ox 97% on R/A; mh5 02:25 BP 132 / 87; Pulse 102; Resp 24; Pulse Ox 99% ; vc1 ED Course: 09/19 23:14 Patient arrived in ED. ja2 23:17 Lonnie Osorio PA is PHCP. cp 23:17 William Delvalle DO is Attending Physician. cp 23:30 Arm band placed on. vc1 09/20 00:09 Rosy Duran, LUIS CARLOS is Primary Nurse. vc1 00:16 CBC with Diff Sent. tw5 00:16 CMP Sent. tw5 00:16 Lipase Sent. tw5 00:22 Initial lab(s) drawn, by ED staff, sent to lab. mh5 00:22 Patient has correct armband on for positive identification. Bed in low position. Call [facility] light in reach. Side rails up X 1. Adult w/ patient. Warm blanket given. senior mainframe developer on. Pulse ox on. NIBP on. 00:29 Urine Microscopic Only Sent. mh5 00:36 Urine collected: clean catch specimen, clear. mh5 01:44 XRAY Chest (1 view) In Process Unspecified. EDMS 02:24 Triage completed. vc1 02:34 No provider procedures requiring assistance completed. IV discontinued, intact, vc1 bleeding controlled, No redness/swelling at site. Pressure dressing applied. Administered Medications: 00:16 Drug: NS 0.9% 1000 ml Route: IV; Rate: 1 bolus; Site: right antecubital; tw5 01:16 Follow up: IV Status: Completed infusion; IV Intake: 1000ml vc1 00:16 Not Given (Patient Refused): Zofran (Ondansetron) 4 mg IVP once; over 2 minutes tw5 Medication: 02:25 VIS not applicable for this client. vc1 Intake: 01:16 IV: 1000ml; Total: 1000ml. vc1 Outcome: 02:08 Discharge ordered by . ms3 02:34 Discharged to home ambulatory. vc1 02:34 Condition: good 02:34 Discharge instructions given to patient, Instructed on discharge instructions, follow up and referral plans. Demonstrated understanding of instructions, follow-up care. 02:34 Patient left the ED. vc1 Signatures: Dispatcher [employer] EDMS Lonnie Osorio PA PA cp Martinez, Maria 5 William Delvalle DO DO ms3 Yoan Greenmarie ingram2 Wilber Justine tw5 Rosy Duran RN RN vc1 Corrections: (The following items were deleted from the chart) 00:28 00:19 BP 132 / 83; Pulse 109bpm; Resp 26bpm; Pulse Ox 97% RA; mh5 mh5
--- NOTE | 2021-09-20 02:09 | EDPHYS ---
Physician Documentation [facility] Name: He Schmitz Age: 26 yrs Sex: Male : 1995 Arrival Date: 09/19/2021 Time: 23:14 Bed 5 Private MD: ED Physician William Delvalle HPI: 09/20 00:05 This 26 yrs old Male presents to ER via Unassigned with complaints of Headache, Cough, cp Fever. 00:05 The patient complains of pain to the top of head and forehead. The patient describes cp the headache as aching. 00:05 Associated signs and symptoms: Pertinent positives: fever, sore throat, cough, cp Pertinent negatives: neck stiffness, paresthesias, vision changes. Severity of symptoms: in the emergency department the pain is unchanged, despite home interventions. Historical: - Allergies: 09/19 23:30 No Known Allergies; vc1 - PMHx: 23:30 Anxiety; Autism; Gout; Left ventricular hypertrophy; Pneumonia; vc1 - Immunization history:: Adult Immunizations up to date. - Social history:: Smoking status: Patient denies any tobacco usage or history of. ROS: 09/20 00:09 Eyes: Negative for injury, pain, redness, and discharge. cp Constitutional: Negative for fever. ENT: Positive for sore throat. Respiratory: Positive for cough, with no reported sputum, Negative for shortness of breath, wheezing. Abdomen/GI: Positive for nausea, Negative for diarrhea, constipation. Skin: Negative for rash. Neuro: Positive for headache, Negative for dizziness, weakness. 00:09 : Negative for urinary symptoms. cp 00:09 All other systems are negative. cp Exam: 00:13 Constitutional: The patient appears in no acute distress, alert, awake, non-toxic, well cp developed, well nourished. 00:13 Head/Face: Normocephalic, atraumatic. cp Vital Signs: 09/19 23:41 BP 123 / 87; Pulse 110; Resp 26; Temp 99.8(O); Pulse Ox 97% ; vc1 09/20 00:19 BP 132 / 83; Pulse 109; Resp 26; Temp 100.1(O); Pulse Ox 97% on R/A; mh5 02:25 BP 132 / 87; Pulse 102; Resp 24; Pulse Ox 99% ; vc1 MDM: 09/19 23:17 Patient medically screened. 09/20 00:02 Order name: CBC with Diff; Complete Time: 00:59 cp 09/20 00:59 Interpretation: Normal except: SHREE% 85.0; LYM% 6.3; LYMA 0.5. 09/20 00:02 Order name: CMP; Complete Time: 01:38 cp 09/20 00:02 Order name: Lipase; Complete Time: 01:38 cp 09/20 00:02 Order name: Urine Microscopic Only; Complete Time: 01:38 cp 09/20 00:02 Order name: Magnesium; Complete Time: 01:38 cp 09/20 00:02 Order name: Strep cp 09/20 00:02 Order name: [place] Screen Profile; Complete Time: 00:59 cp 09/20 00:02 Order name: Influenza Screen (a \T\ B) 09/20 00:11 Order name: Lactate; Complete Time: 01:05 tw5 09/20 01:05 Interpretation: LAC 0.9; Reviewed. 09/20 00:36 Order name: Urine Dipstick-Ancillary; Complete Time: 00:59 EDMS 09/20 01:00 Order name: XRAY Chest (1 view) 09/20 00:02 Order name: IV Saline Lock; Complete Time: 00:10 cp 09/20 00:02 Order name: Labs collected and sent; Complete Time: 00:14 cp 09/20 00:02 Order name: Urine Dipstick-Ancillary (obtain specimen); Complete Time: 00:29 cp 09/20 01:05 Order name: EKG; Complete Time: 01:07 cp 09/20 01:05 Order name: EKG - Nurse/Tech; Complete Time: 01:38 cp Administered Medications: 09/20 00:16 Drug: NS 0.9% 1000 ml Route: IV; Rate: 1 bolus; Site: right antecubital; tw5 01:16 Follow up: IV Status: Completed infusion; IV Intake: 1000ml vc1 00:16 Not Given (Patient Refused): Zofran (Ondansetron) 4 mg IVP once; over 2 minutes tw5 Disposition: 06:15 Co-signature as Attending Physician, William MEHTA was immediately available on-site ms3 in the Emergency Department for consultation in the care of the patient.. Disposition Summary: 09/20/21 02:08 Discharge Ordered Location: Home ms3 Problem: new ms3 Symptoms: are unchanged ms3 Condition: Stable ms3 Diagnosis - Fever, unspecified ms3 - Cough ms3 - viral illness ms3 Followup: ms3 - With: Private Physician - When: 2 - 3 days - Reason: Recheck today's complaints Discharge Instructions: - Discharge Summary Sheet ms3 - Fever, Adult ms3 - Viral Illness, Adult ms3 Forms: - Medication Reconciliation Form ms3 - Thank You Letter ms3 - Antibiotic Education ms3 - Prescription Opioid Use ms3 Signatures: Dispatcher [employer] EDMS Lonnie Osorio PA PA cp Sims, Marcus, DO DO ms3 Justine Merino tw5 Rosy Duran RN RN vc1
[2021-09-20 03:22] VITALS: TEMP 100.1
[2021-09-20 03:25] VITALS: BP 132/87; O2SAT 99
--- NOTE | 2021-09-20 21:32 | RAD REPORT ---
EXAM DESCRIPTION: RAD - Chest Single View - 09/20/2021 1:42 am CLINICAL HISTORY: The patient is 26 years old and is Male; COUGH TECHNIQUE: Frontal view of the chest. COMPARISON: No relevant prior studies available. FINDINGS: Lungs: Unremarkable. No consolidation. Pleural space: Unremarkable. No pneumothorax. Heart: Unremarkable. Mediastinum: Unremarkable. Bones/joints: Unremarkable. IMPRESSION: No acute findings in the chest. Electronically signed by: Drake Gandhi MD 09/20/2021 2:01 AM CDT Due to temporary technical issues with the PACS/Fluency reporting system, reports are being signed by the in house radiologists without review as a courtesy to insure prompt reporting. The interpreting radiologist is fully responsible for the content of the report.
--- NOTE | 2021-09-23 08:25 | EKG ---
Test Date: 2021-09-20 Test Time: 01:33:49 Pharmacy Messenger: JOJO MEASUREMENT RESULTS: Intervals: Rate: 81 MA: 138 QRSD: 88 QT: 366 QTc: 425 [place]: P: 40 MA: 138 QRS: -14 T: 4 INTERPRETIVE STATEMENTS: Normal sinus rhythm Minimal voltage criteria for LVH, may be normal variant Borderline ECG Compared to ECG 02/11/2021 14:56:33 No significant changes Electronically Signed On 09-23-21 08:12:48 CDT by Guille Marin
== END 2021-09-20 02:34 | disposition home or self-care (01) ==
LOC: ER 23:12
DX: B34.9 Viral infection, unspecified (principal); R05.9 Cough, unspecified; R11.0 Nausea
CPT/HCPCS: 36415; 71045; 80053; 81003; 81015; 83605; 83690; 83735; 85025; 86308; 93005; 96360; 99284; J2405; J7030

== ENCOUNTER 2021-09-20 20:09 | Emergency (ER) | payer SELFPAY ==
--- OUTSIDE RECORDS SUMMARY | 2021-09-20 20:11 | XMS REPORT | Continuity of Care Document ---
:1995 Author Organization [facility] t Address [address] [place] [address] Dr. Leroy [address] [place] [id number] Care Team Providers Name Role Phone FERNANDO [...] LARSON [address] 09:38:00 09:38:00 H 0713 [facility] h Program Results This patient has no known results.
[2021-09-20] MEDS ORDERED: DIAZEPAM 5 MG TABLET ONE (20:51)
[2021-09-20] MEDS ORDERED: HYDROCODONE/APAP 5/325 MG TAB ONE (20:51)
--- NOTE | 2021-09-20 21:53 | ER ---
Nurse's Notes [facility] Name: He Schmitz Age: 26 yrs Sex: Male : 1995 Arrival Date: 09/20/2021 Time: 20:12 Bed 15 Private MD: Diagnosis: Neck pain;Muscle spasm Presentation: 09/20 20:23 Chief complaint: Patient states: "I have really bad neck pain, It hurts when I move it, aa9 when I cough or when I swallow. its been like this all morning. It getting worse". Coronavirus screen: Vaccine status: Patient reports receiving the 2nd dose of the covid vaccine. Ebola Screen: Patient denies travel to an Ebola-affected area in the 21 days before illness onset. Initial Sepsis Screen: Does the patient meet any 2 criteria? Systolic BP < 90 mmHg. No. Patient's initial sepsis screen is negative. Does the patient have a suspected source of infection? No. Patient's initial sepsis screen is negative. Risk Assessment: Do you want to hurt yourself or someone else? Patient reports no desire to harm self or others. Onset of symptoms was September 20, 2021 at 08:00. 20:23 Method Of Arrival: Ambulatory aa9 20:23 Acuity: NICOLE 3 aa9 Triage Assessment: 20:28 General: Appears distressed, uncomfortable, Behavior is cooperative, anxious. Pain: aa9 Complains of pain in neck Pain currently is 5 out of 10 on a pain scale. Quality of pain is described as crampy, Pain began this morning Alleviated by rest, Aggravated by eating, increased activity, repositioning, Noted to be grimacing, guarding, moaning, resistant to movement. Historical: - PMHx: 20:27 Anxiety; Autism; Gout; Left ventricular hypertrophy; Pneumonia; aa9 - Immunization history:: Client reports receiving the 2nd dose of the Covid vaccine, Flu vaccine is not up to date. - Social history:: Smoking status: Patient denies any tobacco usage or history of. Screenin:39 Abuse screen: Denies threats or abuse. Denies injuries from another. Nutritional hb screening: No deficits noted. Tuberculosis screening: No symptoms or risk factors identified. Fall Risk None identified. Assessment: 20:30 General: Appears in no apparent distress. uncomfortable, Behavior is cooperative, hb anxious. Pain: Pain currently is 8 out of 10 on a pain scale. Neuro: Level of Consciousness is awake, alert, obeys commands, Oriented to person, place, time, situation. Cardiovascular: Patient's skin is warm and dry. Respiratory: Respiratory effort is even, unlabored, Respiratory pattern is regular, symmetrical. GI: No signs and/or symptoms were reported involving the gastrointestinal system. : No signs and/or symptoms were reported regarding the genitourinary system. EENT: No signs and/or symptoms were reported regarding the EENT system. Derm: Skin is pink, warm \\T\\ dry. Musculoskeletal: Reports right sided neck pain. 21:39 Reassessment: Patient appears in no apparent distress at this time. Patient and/or hb family updated on plan of care and expected duration. Pain level reassessed. Patient is alert, oriented x 3, equal unlabored respirations, skin warm/dry/pink. Vital Signs: 20:23 BP 156 / 112; Pulse 85; Resp 16 S; Temp 98.4(O); Pulse Ox 99% on R/A; Weight 113.4 kg; aa9 Height 6 ft. 2 in. (187.96 cm); Pain 5/10; 20:28 BP 156 / 112; Pulse 85; Resp 16 S; Temp 98.5(O); Pulse Ox 98% on R/A; Weight 113.4 kg; aa9 Height 6 ft. 2 in. (187.96 cm); Pain 5/10; 21:39 BP 120 / 87; Pulse 82; Resp 16; Pulse Ox 98% on R/A; hb 20:28 Body Mass Index 32.10 (113.40 kg, 187.96 cm) aa9 ED Course: 20:12 Patient arrived in ED. ja2 20:16 William Delvalle DO is Attending Physician. ms3 20:27 Triage completed. aa9 20:28 Arm band placed on. aa9 20:40 Barbara Zamora, RN is Primary Nurse. hb 21:39 Patient has correct armband on for positive identification. hb 21:52 Dangelo Jacobs DO is Referral Physician. ms3 Administered Medications: 20:52 Drug: HYDROcodone-acetaminophen 5 mg-325 mg 1 tabs Route: PO; hb 20:52 Drug: Valium (diazepam) 5 mg Route: PO; hb Medication: 21:39 VIS not applicable for this client. hb Outcome: 21:53 Discharge ordered by ms3 22:29 Patient left the ED. hb Signatures: Barbara Zamora, RN RN William Diallo DO DO ms3 Adriana Green2 Marlena Harmon RN RN aa9
--- NOTE | 2021-09-20 21:53 | EDPHYS ---
Physician Documentation [facility] Name: He Schmitz Age: 26 yrs Sex: Male : 1995 Arrival Date: 09/20/2021 Time: 20:12 Bed 15 Private MD: ED Physician William Delvalle HPI: 09/20 20:31 This 26 yrs old Male presents to ER via Ambulatory with complaints of Neck Problem. ms3 20:31 The patient or guardian complains of pain, that is acute. The symptoms are located ms3 Right sided. Onset: The symptoms/episode began/occurred today. Context: The problem was sustained at home, The neck injury/problem resulted from began on waking up today. Associated signs and symptoms: Pertinent negatives: chills, fever, headache, nausea, numbness, tingling, weakness. The pain does not radiate. Modifying factors: The symptoms are alleviated by nothing. the symptoms are aggravated by nothing. Severity of symptoms: At their worst the symptoms were severe, in the emergency department the symptoms are unchanged, 5/10 at rest and 10/10 with movement. Historical: - PMHx: 20:27 Anxiety; Autism; Gout; Left ventricular hypertrophy; Pneumonia; aa9 - Immunization history:: Client reports receiving the 2nd dose of the Covid vaccine, Flu vaccine is not up to date. - Social history:: Smoking status: Patient denies any tobacco usage or history of. ROS: 20:31 Constitutional: Negative for fever, and chills. Neck: Negative for injury, pain, and ms3 swelling, Cardiovascular: Negative for chest pain, and palpitations. Respiratory: Negative for shortness of breath, cough, wheezing, and pleuritic chest pain, Abdomen/GI: Negative for abdominal pain, nausea, vomiting, diarrhea, and constipation. 20:31 Skin: Negative for injury, rash, and discoloration, Neuro: Negative for headache, weakness, numbness, tingling. 20:31 MS/extremity: Positive for neck pain. 20:31 All other systems are negative. Exam: 20:31 Constitutional: This is a well developed, well nourished patient who is awake, alert, ms3 and in no acute distress./+ Head/Face: Normocephalic, atraumatic. ENT: Nares patent. No nasal discharge, no septal abnormalities noted. Tympanic membranes are normal and external auditory canals are clear. Oropharynx with no redness, swelling, or masses, exudates, or evidence of obstruction, uvula midline. Mucous membranes moist. Neck: Trachea midline, no cervical lymphadenopathy. Supple, full range of motion without nuchal rigidity, or vertebral point tenderness. No Meningismus. Chest/axilla: Normal chest wall appearance and motion. Nontender with no deformity. Cardiovascular: Regular rate and rhythm with a normal S1 and S2. No gallops, murmurs, or rubs. Normal PMI, no JVD. No pulse deficits. Respiratory: Lungs have equal breath sounds bilaterally, clear to auscultation and percussion. No rales, rhonchi or wheezes noted. No increased work of breathing, no retractions or nasal flaring. Abdomen/GI: Soft, non-tender, with normal bowel sounds. No distension or tympany. No guarding or rebound. No evidence of tenderness throughout. Skin: Warm, dry with normal turgor. Normal color with no rashes, no lesions, and no evidence of cellulitis. Psych: Awake, alert, with orientation to person, place and time. Behavior, mood, and affect are within normal limits. 20:31 Back: pain, that is moderate, of the neck, ROM is painless, normal spinal alignment noted, muscle spasm, is appreciated in the right trapezius. Vital Signs: 20:23 BP 156 / 112; Pulse 85; Resp 16 S; Temp 98.4(O); Pulse Ox 99% on R/A; Weight 113.4 kg; aa9 Height 6 ft. 2 in. (187.96 cm); Pain 5/10; 20:28 BP 156 / 112; Pulse 85; Resp 16 S; Temp 98.5(O); Pulse Ox 98% on R/A; Weight 113.4 kg; aa9 Height 6 ft. 2 in. (187.96 cm); Pain 5/10; 21:39 BP 120 / 87; Pulse 82; Resp 16; Pulse Ox 98% on R/A; hb 20:28 Body Mass Index 32.10 (113.40 kg, 187.96 cm) aa9 MDM: 20:27 Patient medically screened. ms3 21:53 Data reviewed: vital signs, nurses notes, and as a result, I will discharge patient. ms3 Counseling: I had a detailed discussion with the patient and/or guardian regarding: the historical points, exam findings, and any diagnostic results supporting the discharge/admit diagnosis, the need for outpatient follow up, to return to the emergency department if symptoms worsen or persist or if there are any questions or concerns that arise at home. Special discussion: I discussed with the patient/guardian in detail that at this point there is no indication for admission to the hospital. It is understood, however, that if the symptoms persist or worsen the patient needs to return immediately for re-evaluation. 21:53 ED course: Discussed physical exam findings with patient. Patient to follow-up with Dr. akin Jacobs in 2 to 3 days. Patient understands and agrees with plan. All questions were answered. Return precautions discussed include worsening symptoms, or any other concerns. On reevaluation patient symptoms improved, patient is alert and oriented x4, no apparent distress, nontoxic, ambulatory in emergency department, tolerating p.o.. Administered Medications: 20:52 Drug: HYDROcodone-acetaminophen 5 mg-325 mg 1 tabs Route: PO; hb 20:52 Drug: Valium (diazepam) 5 mg Route: PO; hb Disposition Summary: 09/20/21 21:53 Discharge Ordered Location: Home ms3 Condition: Stable ms3 Diagnosis - Neck pain ms3 - Muscle spasm ms3 Followup: ms3 - With: Dangelo Jacobs DO - When: 2 - 3 days - Reason: Recheck today's complaints Discharge Instructions: - Discharge Summary Sheet ms3 - Muscle Cramps and Spasms ms3 Forms: - Medication Reconciliation Form ms3 - Thank You Letter ms3 - Antibiotic Education ms3 - Prescription Opioid Use ms3 Prescriptions: - Cyclobenzaprine 5 mg Oral Tablet - take 1 tablet by ORAL route 3 times per day As needed; 15 tablet; Refills: 0, ms3 Product Selection Permitted Signatures: Barbara Zamora, RN LUIS CARLOS William Delvalle DO DO ms3 Marlena Harmon, RN RN aa9
[2021-09-20 23:28] VITALS: TEMP 98.5; O2SAT 98
[2021-09-20 23:30] VITALS: BP 120/87
== END 2021-09-20 22:29 | disposition home or self-care (01) ==
LOC: ER 20:09
DX: M62.838 Other muscle spasm (principal)
CPT/HCPCS: 99283

== ENCOUNTER 2021-09-21 23:26 | Emergency (ER) | payer SELFPAY ==
--- OUTSIDE RECORDS SUMMARY | 2021-09-21 23:29 | XMS REPORT | Continuity of Care Document ---
:1995 Author Organization [facility] t Address [address] [place] [address] Dr. Ler[address] [place] [id number] Care Team Providers Name Role Phone FERNANDO [...] LARSON [address] 09:38:00 09:38:00 H 0713 [facility] h Program Results This patient has no known results.
[2021-09-22 02:08] LABS: Absolute Lymphocytes (CBC) 0.7 K/uL (0.7-4.9); Hematocrit 40.9 % (39.6-49.0); Lymphocytes % 14.1 % (15.3-44.8); MCV 83.3 fL (80-100); RBC Red Blood Cell Count 4.91 M/uL (4.33-5.43)
[2021-09-22 02:10] LABS: Protime INR 1.27
[2021-09-22 02:23] LABS: Albumin 3.7 g/dL (3.4-5.0); Bilirubin Direct 0.1 mg/dL (0-0.2); Bilirubin Total 0.4 mg/dL (0.2-1.0); Magnesium 2.1 mg/dL (1.8-2.4); Potassium 3.7 mmol/L (3.5-5.1); Protein, Total 7.5 g/dL (6.4-8.2); Troponin High Sensitivity 3.9 pg/mL (<58.9)
[2021-09-22] MEDS ORDERED: KETOROLAC 30 MG/ML INJ ONE (02:31)
[2021-09-22] MEDS ORDERED: NA CHLORIDE 0.9% 1,000 ML ONE (02:32)
--- NOTE | 2021-09-22 04:40 | ER ---
Nurse's Notes [facility] Name: He Schmitz Age: 26 yrs Sex: Male : 1995 Arrival Date: 09/21/2021 Time: 23:28 Bed 12 Private MD: Diagnosis: SARS-associated coronavirus as the cause of diseases classified elsewhere Presentation: 09/21 23:52 Chief complaint: Patient states: Pt returns to Ed for 4th visit in 6 days for continued kb3 symptoms of cough, sore throat, and neck pain. Pt took 1 flexeril this morning. Pt has taken no OTC medications for fever or cough. Coronavirus screen: Vaccine status: Patient reports receiving the 2nd dose of the covid vaccine. Client denies travel out of the [place] in the last 14 days. congestion, cough unrelated to allergies, fatigue, fever, headache, muscle pain, sore throat, Client presents with at least one sign or symptom that may indicate coronavirus-19. Standard/surgical mask placed on the client. Provider contacted for isolation considerations. Ebola Screen: Patient negative for fever greater than or equal to 101.5 degrees Fahrenheit, and additional compatible Ebola Virus Disease symptoms Patient denies exposure to infectious person. Patient denies travel to an Ebola-affected area in the 21 days before illness onset. No symptoms or risks identified at this time. Initial Sepsis Screen: Does the patient meet any 2 criteria? No. Patient's initial sepsis screen is negative. Does the patient have a suspected source of infection? No. Patient's initial sepsis screen is negative. Risk Assessment: Do you want to hurt yourself or someone else? Patient reports no desire to harm self or others. Onset of symptoms was September 15, 2021. 23:52 Method Of Arrival: Ambulatory kb3 23:52 Acuity: NICOLE 3 kb3 Triage Assessment: 23:56 General: Appears uncomfortable, obese, unkempt, Behavior is calm, cooperative. Pain: kb3 Complains of pain in chest and neck Quality of pain is described as pressure, sharp, Pain began 09/15/2021 Is continuous. Cardiovascular: Reports. Respiratory: Reports shortness of breath cough that is pain with cough the patient has moderate shortness of breath. Historical: - Allergies: 23:56 No Known Allergies; kb3 - Home Meds: 23:56 Flexeril 10 mg Oral tab 1 tab 3 times per day [Active]; kb3 - PMHx: 23:56 Anxiety; Autism; Gout; Left ventricular hypertrophy; Pneumonia; kb3 - Immunization history:: Adult Immunizations up to date, Client reports receiving the 2nd dose of the Covid vaccine, Last tetanus immunization: up to date. - Social history:: Smoking status: Patient denies any tobacco usage or history of. Patient/guardian denies using alcohol, street drugs. Screenin/15 04:49 Abuse screen: Denies threats or abuse. Denies injuries from another. Nutritional as6 screening: No deficits noted. Tuberculosis screening: No symptoms or risk factors identified. Fall Risk None identified. Assessment: 01:49 General: pt refused COVID, strep and flu testing. provider notified . as6 03:09 Reassessment: Patient is alert, oriented x 3, equal unlabored respirations, skin bb warm/dry/pink. pt resting quietly awaiting diagnostic results IV site intact, patent, with fluids infusing. 03:56 Reassessment: Patient is alert, oriented x 3, equal unlabored respirations, skin bb warm/dry/pink. awaiting diagnostic results. Vital Signs: 09/21 23:52 BP 133 / 82; Pulse 109; Resp 26; Temp 99.7; Pulse Ox 98% ; Weight 113.4 kg; Height 6 kb3 ft. 2 in. (187.96 cm); Pain 5/10; 09/22 03:56 BP 126 / 84; Pulse 79; Resp 16 S; Pulse Ox 100% on R/A; bb 04:50 BP 121 / 79; Pulse 82; Resp 18 S; Pulse Ox 97% on R/A; as6 09/21 23:52 Body Mass Index 32.10 (113.40 kg, 187.96 cm) kb3 ED Course: 09/21 23:28 Patient arrived in ED. ja2 23:56 Triage completed. kb3 23:56 Arm band placed on right wrist. kb3 09/22 00:25 Nicholas Olivares MD is Attending Physician. mh7 00:41 Collette Lyman, LUIS CARLOS is Primary Nurse. kd3 01:45 Inserted saline lock: 20 gauge in right antecubital area, using aseptic technique. as6 Blood collected. 01:46 XRAY Chest (1 view) In Process Unspecified. EDMS 01:49 [place] Screen Profile Sent. as6 01:49 Basic Metabolic Panel Sent. as6 01:49 CBC with Diff Sent. as6 01:49 D-Dimer Sent. as6 01:49 Magnesium Sent. as6 01:49 LFT's Sent. as6 01:49 NT PRO-BNP Sent. as6 01:49 PT-INR Sent. as6 01:49 Troponin HS Sent. as6 02:49 COVID swab sent to lab. Flu and/or RSV swab sent to lab. Strep swab sent to lab. bb 03:43 CT Soft Tissue Neck W/contr In Process Unspecified. EDMS 03:44 CT Chest For PE Angio In Process Unspecified. EDMS 04:05 Notified ED physician of a critical lab result(s). Covid positive Dr Olivares notified. bb 04:50 Bed in low position. Call light in reach. Side rails up X2. as6 04:50 No provider procedures requiring assistance completed. IV discontinued, intact, as6 bleeding controlled, No redness/swelling at site. Pressure dressing applied. Administered Medications: 02:49 Drug: NS 0.9% 1000 ml Route: IV; Rate: 1000 ml; Site: right antecubital; bb 04:49 Follow up: Response: No adverse reaction; IV Status: Completed infusion; IV Intake: as6 1000ml 02:49 Drug: Ketorolac 30 mg Route: IVP; Site: right antecubital; bb 04:49 Follow up: Response: No adverse reaction as6 03:08 Not Given (unavailablee): Tessalon Perle (benzonatate) 100 mg PO once bb 04:49 Drug: AZITHromycin 500 mg Route: PO; as6 04:49 Follow up: Response: No adverse reaction as6 Medication: 04:50 VIS not applicable for this client. as6 Intake: 04:49 IV: 1000ml; Total: 1000ml. as6 Outcome: 04:40 Discharge ordered by 7 04:50 Discharged to home ambulatory. as6 04:50 Condition: stable 04:50 Discharge instructions given to patient, Instructed on discharge instructions, follow up and referral plans. medication usage, Demonstrated understanding of instructions, follow-up care, medications, Prescriptions given X 3. 04:51 Patient left the ED. as6 Signatures: Dispatcher [employer] EDAda Garcia, RN RN bb Nicholas Olivares MD MD mh7 Adriana Green Ash[place], RN RN as6 Collette Lyman, RN RN kd3 Gabrielle Hagen, RN RN kb3
--- NOTE | 2021-09-22 04:41 | EDPHYS ---
Physician Documentation [facility] Name: He Schmitz Age: 26 yrs Sex: Male : 1995 Arrival Date: 09/21/2021 Time: 23:28 Bed 12 Private MD: ED Physician Nicholas Olivares HPI: 09/22 01:30 This 26 yrs old Male presents to ER via Ambulatory with complaints of Chest Pain, Cough.mh7 01:30 The patient or guardian reports cough, that is intermittent, described as moderate, mh7 with no sputum, sore throat. Onset: The symptoms/episode began/occurred 4 day(s) ago. Severity of symptoms: At their worst the symptoms were moderate, 3 day(s) ago, in the emergency department the symptoms have improved, mildly. Modifying factors: The symptoms are alleviated by nothing, the symptoms are aggravated by nothing. Associated signs and symptoms: Pertinent positives: chest pain, with cough, rhinorrhea, sore throat, muscle spasm of right posterior neck, Pertinent negatives: diarrhea, ear ache, fever, nausea, vomiting. The patient has been recently seen at the [facility] Emergency Department, last week. Historical: - Allergies: 09/21 23:56 No Known Allergies; kb3 - Home Meds: 23:56 Flexeril 10 mg Oral tab 1 tab 3 times per day [Active]; kb3 - PMHx: 23:56 Anxiety; Autism; Gout; Left ventricular hypertrophy; Pneumonia; kb3 - Immunization history:: Adult Immunizations up to date, Client reports receiving the 2nd dose of the Covid vaccine, Last tetanus immunization: up to date. - Social history:: Smoking status: Patient denies any tobacco usage or history of. Patient/guardian denies using alcohol, street drugs. ROS: 09/22 01:30 Constitutional: Negative for fever, chills, and weight loss, Eyes: Negative for injury, mh7 pain, redness, and discharge, Abdomen/GI: Negative for abdominal pain, nausea, vomiting, diarrhea, and constipation, Back: Negative for injury and pain, : Negative for injury, bleeding, discharge, and swelling, MS/Extremity: Negative for injury and deformity, Skin: Negative for injury, rash, and discoloration, Neuro: Negative for headache, weakness, numbness, tingling, and seizure, Psych: Negative for depression, anxiety, suicide ideation, homicidal ideation, and hallucinations, Allergy/Immunology: Negative for hives, rash, and allergies, Endocrine: Negative for neck swelling, polydipsia, polyuria, polyphagia, and marked weight changes, Hematologic/Lymphatic: Negative for swollen nodes, abnormal bleeding, and unusual bruising. Exam: 01:30 Constitutional: This is a well developed, well nourished patient who is awake, alert, mh7 and in no acute distress. Head/Face: Normocephalic, atraumatic. Eyes: Pupils equal round and reactive to light, extra-ocular motions intact. Lids and lashes normal. Conjunctiva and sclera are non-icteric and not injected. Cornea within normal limits. Periorbital areas with no swelling, redness, or edema. 01:30 Chest/axilla: Normal chest wall appearance and motion. Nontender with no deformity. No lesions are appreciated. Cardiovascular: Regular rate and rhythm with a normal S1 and S2. No gallops, murmurs, or rubs. Normal PMI, no JVD. No pulse deficits. Respiratory: Lungs have equal breath sounds bilaterally, clear to auscultation and percussion. No rales, rhonchi or wheezes noted. No increased work of breathing, no retractions or nasal flaring. Abdomen/GI: Soft, non-tender, with normal bowel sounds. No distension or tympany. No guarding or rebound. No evidence of tenderness throughout. Back: No spinal tenderness. No costovertebral tenderness. Full range of motion. Skin: Warm, dry with normal turgor. Normal color with no rashes, no lesions, and no evidence of cellulitis. MS/ Extremity: Pulses equal, no cyanosis. Neurovascular intact. Full, normal range of motion. Neuro: Awake and alert, GCS 15, oriented to person, place, time, and situation. Cranial nerves II-XII grossly intact. Motor strength 5/5 in all extremities. Sensory grossly intact. Cerebellar exam normal. Normal gait. Psych: Awake, alert, with orientation to person, place and time. Behavior, mood, and affect are within normal limits. 01:30 ENT: Nose: is normal, Mouth: is normal, Posterior pharynx: Airway: normal, Tonsils: bilaterally enlarged, with erythema, Uvula: normal, swelling, is not appreciated, erythema, that is moderate, exudate, is not appreciated, peritonsillar mass, is not appreciated, pooling of secretions, is not appreciated, Dental exam: normal, Voice: is normal. 01:30 Neck: External neck: tenderness, that is mild, of the right mid cervical area and right trapezius, C-spine: appears grossly normal, Thyroid: appears normal, Trachea: is midline with no obvious abnormalities, ROM/movement: pain, that is mild, with rotation to the right, Meningeal signs: are not present, nuchal rigidity, is not appreciated, Lymph nodes: no appreciated lymphadenopathy. Vital Signs: 09/21 23:52 BP 133 / 82; Pulse 109; Resp 26; Temp 99.7; Pulse Ox 98% ; Weight 113.4 kg; Height 6 kb3 ft. 2 in. (187.96 cm); Pain 10; 09/22 03:56 BP 126 / 84; Pulse 79; Resp 16 S; Pulse Ox 100% on R/A; bb 04:50 BP 121 / 79; Pulse 82; Resp 18 S; Pulse Ox 97% on R/A; as6 09/21 23:52 Body Mass Index 32.10 (113.40 kg, 187.96 cm) kb3 MDM: 04:38 Differential Diagnosis: Obstructed Airway Bronchitis Influenza Upper Respiratory mh7 Infection Pharyngitis Allergic Rhinitis Viral Syndrome Pneumonia. Data reviewed: vital signs, nurses notes, lab test result(s), cardiac enzymes, CBC, electrolytes, Flu: negative COVID positive, strep negative. Data interpreted: Pulse oximetry: on room air is 100 %. Interpretation: normal. Counseling: I had a detailed discussion with the patient and/or guardian regarding: the historical points, exam findings, and any diagnostic results supporting the discharge/admit diagnosis, lab results, radiology results, the need for outpatient follow up, to return to the emergency department if symptoms worsen or persist or if there are any questions or concerns that arise at home. Response to treatment: the patient's symptoms have markedly improved after treatment. 04:[address] [facility] 09/22 01:13 Order name: Basic Metabolic Panel; Complete Time: [facility] 09/22 01:13 Order name: CBC with Diff; Complete Time: [facility] 09/22 01:13 Order name: D-Dimer; Complete Time: 02:27 [facility] 09/22 01:13 Order name: LFT's; Complete Time: 02:27 [facility] 09/22 01:13 Order name: Magnesium; Complete Time: 02:27 [facility] 09/22 01:13 Order name: NT PRO-BNP; Complete Time: 02:27 [facility] 09/22 01:13 Order name: PT-INR; Complete Time: 02:27 [facility] 09/22 01:13 Order name: Troponin HS; Complete Time: 02:27 [facility] 09/22 01:13 Order name: XRAY Chest (1 view) [facility] 09/22 01:13 Order name: COVID-19 SARS RT PCR (Document "Date of Onset" if Symptomatic); Complete [facility] Time: 04:04 09/22 01:13 Order name: Influenza Screen (a \\T\\ B); Complete Time: 04:04 [facility] 09/22 01:13 Order name: Rapid Strep; Complete Time: 04:04 [facility] 09/22 01:13 Order name: [place] Screen Profile; Complete Time: 02:27 [facility] 09/22 03:48 Order name: Throat Culture [facility] 09/22 01:13 Order name: EKG; Complete Time: 01:15 [facility] 09/22 01:13 Order name: Cardiac monitoring; Complete Time: 01:48 [facility] 09/22 01:13 Order name: EKG - Nurse/Tech; Complete Time: 03:08 [facility] 09/22 01:13 Order name: IV Saline Lock; Complete Time: 01:49 [facility] 09/22 01:13 Order name: Labs collected and sent; Complete Time: 01:49 [facility] 09/22 01:13 Order name: O2 Per Protocol; Complete Time: 01:47 [facility] 09/22 01:13 Order name: O2 Sat Monitoring; Complete Time: 01:47 [facility] 09/22 02:46 Order name: CT Chest For PE Angio [facility] 09/22 02:46 Order name: CT Soft Tissue Neck W/contr [facility] Administered Medications: 02:49 Drug: NS 0.9% 1000 ml Route: IV; Rate: 1000 ml; Site: right antecubital; bb 04:49 Follow up: Response: No adverse reaction; IV Status: Completed infusion; IV Intake: as6 1000ml 02:49 Drug: Ketorolac 30 mg Route: IVP; Site: right antecubital; bb 04:49 Follow up: Response: No adverse reaction as6 03:08 Not Given (unavailablee): Tessalon Perle (benzonatate) 100 mg PO once bb 04:49 Drug: AZITHromycin 500 mg Route: PO; as6 04:49 Follow up: Response: No adverse reaction as6 Disposition Summary: 09/22/21 04:40 Discharge Ordered Location: Home [facility] Problem: an ongoing problem [facility] Symptoms: have improved [facility] Condition: Stable [facility] Diagnosis - SARS-associated coronavirus as the cause of diseases classified elsewhere [facility] Followup: [facility] - With: Private Physician - When: 1 - 2 days - Reason: Worsening of condition, Recheck today's complaints, Continuance of care, Re-evaluation by your physician Discharge Instructions: - Discharge Summary Sheet [facility] - COVID-19 [facility] - Things to Know about the COVID-19 Pandemic - [place] [address] - 10 Things You Can Do to Manage Your COVID-19 Symptoms at Home - [place] [address] - COVID-19: Quarantine vs. Isolation - [place] [address] - Prevent the Spread of COVID-19 if You Are Sick - [place] [address] Forms: - Medication Reconciliation Form [facility] - Thank You Letter [facility] - Antibiotic Education [facility] - Prescription Opioid Use [facility] Prescriptions: - albuterol sulfate 90 mcg/actuation Inhalation HFA aerosol inhaler - inhale 1 puff by INHALATION route every 6 hours As needed; 1 Inhaler; Refills: [facility] 0, Product Selection Permitted - Tessalon Perles 100 mg Oral Capsule - take 1 capsule by ORAL route every 8 hours As needed; 15 capsule; Refills: 0, 7 Product Selection Permitted - Zithromax Z-Rodríguez 250 mg Oral Tablet - take 1 tablet by ORAL route as directed for 5 days Day 1 - take two (2) tablets [facility] one time. Day 2, 3, 4 , 5 take one (1) tablet once daily.; 6 tablet; Refills: 0, Product Selection Permitted Signatures: Dispatcher [employer] Ada Bey RN RN bb Holmes, Maurice, MD MD 7 Srinath Santana RN RN as6 Gabrielle Hagen RN RN kb3
[2021-09-22] MEDS ORDERED: AZITHROMYCIN 250 MG TAB ONE (04:50)
[2021-09-22 06:43] VITALS: TEMP 99.7
[2021-09-22 06:48] VITALS: BP 121/79; O2SAT 97
--- NOTE | 2021-09-22 10:05 | RAD REPORT ---
EXAM DESCRIPTION: Soft Tissue Neck W/Contr CLINICAL HISTORY: 26 years Male sore throat TECHNIQUE: Contrast enhanced CT neck soft tissue with coronal and sagittal reformats. All CT scans a t this facility use dose modulation, iterative reconstruction, and/or weight based dosing when approp riate to reduce radiation dose to as low as reasonably achievable. COMPARISON: None FINDINGS: Oral cavity: Unremarkable Oropharynx: Unremarkable. No significant tonsillar enlargement. No peritonsillar abscess. Hypopharynx: Unremarkable Retropharyngeal space: Unremarkable Larynx/epiglottis: Unremarkable. Normal epiglottis. Trachea: Unremarkable Submandibular/parotid glands: Unremarkable. Normal in size. Thyroid: Unremarkable Vessels: Unremarkable Lymph nodes: Reactive lymphadenopathies. Brain: Unremarkable for age. Orbits: Unremarkable. Paranasal sinuses: Mild maxillary sinus mucosal thickening Mastoid air cells: Well-aerated Bones/joints: Unremarkable Soft tissues: Unremarkable Lung apices: Unremarkable as visualized IMPRESSION: No acute abnormality. Electronically signed by: Eusebio Dawson MD 09/22/2021 4:05 AM CDT Due to temporary technical issues with the PACS/Fluency reporting system, reports are being signed by the in house radiologists without review as a courtesy to insure prompt reporting. The interpreting radiologist is fully responsible for the content of the report.
--- NOTE | 2021-09-22 10:08 | RAD REPORT ---
EXAM DESCRIPTION: Chest For Pe Angio CLINICAL HISTORY: Chest pain COMPARISON: None Available. TECHNIQUE: CTA of the chest obtained following the uncomplicated intravenous administration of . 3-D /MIP reformatted images of the chest available for evaluation. This exam was performed according to o departmental dose-optimization program, which includes automated exposure control, adjustment of t he mA and/or kV according to patient size and/or use of iterative reconstruction technique. FINDINGS: Chest: Pulmonary arteries: Contrast bolus is adequate.No filling defects identified in the pulmonary arterie s to suggest pulmonary embolus. Respiratory motion artifact. Thyroid: No abnormalities of the visualized thyroid. Great Vessels: Great vessels have normal anatomic configuration. Thoracic Aorta: No abnormalities of the thoracic aorta identified. Heart: Cardiomegaly. No significant pericardial effusion. No coronary artery atherosclerosis. Lymph Nodes: No enlarged mediastinal lymph nodes identified. Esophagus: No abnormalities of the esophagus identified. Other: No additional findings. Lungs: Linear bibasilar opacities likely related to discoid/subsegmental atelectasis. Low lung volume s. No confluent airspace consolidation. Pleura: No pleural effusion or pneumothorax. Trachea/Airways: No abnormalities of the visualized trachea or airways. Bones: No destructive osseous lesions. Upper Abdomen: Limited images of the upper abdomen demonstrate no definite abnormalities of visualize d portions of the gallbladder, pancreas, spleen, adrenal glands, or kidneys. Decreased density of t he liver. IMPRESSION: 1. No pulmonary embolus. Low lung volumes. Minimal bibasilar discoid/subsegmental atel ectasis. No confluent airspace consolidation. 2. Cardiomegaly. 3. Hepatic steatosis. Electronically signed by: Herb Buck 09/22/2021 4:16 AM CDT Due to temporary technical issues with the PACS/Fluency reporting system, reports are being signed by the in house radiologists without review as a courtesy to insure prompt reporting. The interpreting radiologist is fully responsible for the content of the report.
--- NOTE | 2021-09-23 08:16 | EKG ---
Test Date: 2021-09-22 Test Time: 02:46:43 Materials Assistant: CHEMA MEASUREMENT RESULTS: Intervals: Rate: 79 [place]: 140 QRSD: 86 QT: 396 QTc: 454 [place]: P: 50 [place]: 140 QRS: -21 T: 9 INTERPRETIVE STATEMENTS: Normal sinus rhythm Cannot rule out Anterior infarct, age undetermined Abnormal ECG Compared to ECG 09/20/2021 01:33:49 Myocardial infarct finding now present Left ventricular hypertrophy no longer present Electronically Signed On 09-23-21 08:11:31 CDT by Guille Marin
== END 2021-09-22 04:51 | disposition home or self-care (01) ==
LOC: ER 23:26
DX: U07.1 COVID-19 (principal)
CPT/HCPCS: 36415; 70491; 71045; 71275; 80048; 80076; 83735; 83880; 84484; 85025; 85379; 85610; 86308; 87070; 87081; 87804; 93005; 96361; 96374; 99284; J7030; Q9967; U0003

== ENCOUNTER 2021-09-23 20:28 | Emergency (ER) | payer SELFPAY ==
--- OUTSIDE RECORDS SUMMARY | 2021-09-23 20:39 | XMS REPORT | Continuity of Care Document ---
:1995 Author Organization [facility] t Address [address] [place] [address] Dr. Leroy [address] [place] [id number] Care Team Providers Name Role Phone FERNANDO [...] [place] 09:38:00 09:38:00 H [id number] [facility] h Program Results This patient has no known results.
--- NOTE | 2021-09-24 02:41 | EDPHYS ---
Physician Documentation [facility] Name: He Schmitz Age: 26 yrs Sex: Male : 1995 Arrival Date: 09/23/2021 Time: 20:29 Bed Treatment Private MD: ED Physician Nicholas Olivares HPI: 09/24 01:50 This 26 yrs old Male presents to ER via Ambulatory with complaints of Cough, Sore mh7 Throat. 01:50 The patient or guardian reports cough, that is intermittent, described as moderate, mh7 with no sputum. Onset: The symptoms/episode began/occurred 1 week(s) ago. Severity of symptoms: At their worst the symptoms were moderate, 3 day(s) ago, in the emergency department the symptoms have improved, moderately. Modifying factors: The symptoms are alleviated by prescription meds, Tessalon, the symptoms are aggravated by nothing. Associated signs and symptoms: Pertinent positives: sore throat, Pertinent negatives: chest pain, diarrhea, ear ache, fever, nausea, rhinorrhea, vomiting. The patient has been recently seen at the [facility] Emergency [facility], this week. Tested positive for COVID and seen here multiple times in the past week and had extensive work up including CT chest and neck.. Historical: - Allergies: 09/23 21:03 No Known Drug Allergies; hb - Home Meds: 21:03 Flexeril 10 mg Oral tab 1 tab 3 times per day [Active]; hb - PMHx: 21:03 Autism; Anxiety; Gout; Left ventricular hypertrophy; Pneumonia; hb - Immunization history:: Adult Immunizations up to date. - Social history:: Smoking status: Patient denies any tobacco usage or history of. ROS: 09/24 01:50 Constitutional: Negative for fever, chills, and weight loss, Eyes: Negative for injury, mh7 pain, redness, and discharge, Neck: Negative for injury, pain, and swelling, Cardiovascular: Negative for chest pain, palpitations, and edema, Abdomen/GI: Negative for abdominal pain, nausea, vomiting, diarrhea, and constipation, Back: Negative for injury and pain, : Negative for injury, bleeding, discharge, and swelling, MS/Extremity: Negative for injury and deformity, Skin: Negative for injury, rash, and discoloration, Neuro: Negative for headache, weakness, numbness, tingling, and seizure, Psych: Negative for depression, anxiety, suicide ideation, homicidal ideation, and hallucinations, Allergy/Immunology: Negative for hives, rash, and allergies, Endocrine: Negative for neck swelling, polydipsia, polyuria, polyphagia, and marked weight changes, Hematologic/Lymphatic: Negative for swollen nodes, abnormal bleeding, and unusual bruising. Exam: 01:50 Constitutional: This is a well developed, well nourished patient who is awake, alert, mh7 and in no acute distress. Head/Face: Normocephalic, atraumatic. Eyes: Pupils equal round and reactive to light, extra-ocular motions intact. Lids and lashes normal. Conjunctiva and sclera are non-icteric and not injected. Cornea within normal limits. Periorbital areas with no swelling, redness, or edema. ENT: Nares patent. No nasal discharge, no septal abnormalities noted. Tympanic membranes are normal and external auditory canals are clear. Oropharynx with no redness, swelling, or masses, exudates, or evidence of obstruction, uvula midline. Mucous membranes moist. Neck: Trachea midline, no thyromegaly or masses palpated, and no cervical lymphadenopathy. Supple, full range of motion without nuchal rigidity, or vertebral point tenderness. No Meningismus. Chest/axilla: Normal chest wall appearance and motion. Nontender with no deformity. No lesions are appreciated. Cardiovascular: Regular rate and rhythm with a normal S1 and S2. No gallops, murmurs, or rubs. Normal PMI, no JVD. No pulse deficits. Respiratory: Lungs have equal breath sounds bilaterally, clear to auscultation and percussion. No rales, rhonchi or wheezes noted. No increased work of breathing, no retractions or nasal flaring. Abdomen/GI: Soft, non-tender, with normal bowel sounds. No distension or tympany. No guarding or rebound. No evidence of tenderness throughout. Back: No spinal tenderness. No costovertebral tenderness. Full range of motion. Skin: Warm, dry with normal turgor. Normal color with no rashes, no lesions, and no evidence of cellulitis. MS/ Extremity: Pulses equal, no cyanosis. Neurovascular intact. Full, normal range of motion. Neuro: Awake and alert, GCS 15, oriented to person, place, time, and situation. Cranial nerves II-XII grossly intact. Motor strength 5/5 in all extremities. Sensory grossly intact. Cerebellar exam normal. Normal gait. Psych: Awake, alert, with orientation to person, place and time. Behavior, mood, and affect are within normal limits. Vital Signs: 09/23 21:01 BP 156 / 102; Pulse 103; Resp 20; Temp 98.4; Pulse Ox 100% on R/A; Weight 117.93 kg; hb Height 6 ft. 2 in. (187.96 cm); Pain 0/10; 09/24 02:20 BP 121 / 61; Pulse 72; Resp 18 S; Temp 98.1(O); Pulse Ox 100% on R/A; ha1 09/23 21:01 Body Mass Index 33.38 (117.93 kg, 187.96 cm) hb MDM: 02:38 Differential Diagnosis: Bronchitis Upper Respiratory Infection Pharyngitis Viral mh7 Syndrome Pneumonia. Data reviewed: vital signs, nurses notes, old medical records, radiologic studies, plain films. Data interpreted: Pulse oximetry: on room air is 100 %. Interpretation: normal. Counseling: I had a detailed discussion with the patient and/or guardian regarding: the historical points, exam findings, and any diagnostic results supporting the discharge/admit diagnosis, radiology results, the need for outpatient follow up, to return to the emergency department if symptoms worsen or persist or if there are any questions or concerns that arise at home. Response to treatment: the patient's symptoms have markedly improved after treatment. 02:39 Patient medically screened. [facility] 09/24 01:42 Order name: Chest Single View XRAY [facility] 09/24 01:42 Order name: PO challenge; Complete Time: 02:13 [facility] Administered Medications: No medications were administered Disposition Summary: 09/24/21 02:39 Discharge Ordered Location: Home [facility] Problem: an ongoing problem [facility] Symptoms: have improved [facility] Condition: Stable [facility] Diagnosis - Cough - COVID [facility] Followup: [facility] - With: Private Physician - When: 1 - 2 days - Reason: Worsening of condition, Recheck today's complaints, Continuance of care, Re-evaluation by your physician Discharge Instructions: - Discharge Summary Sheet [facility] - Cough, Adult, [id number] [facility] Forms: - Medication Reconciliation Form [facility] - Thank You Letter [facility] - Antibiotic Education [facility] - Prescription Opioid Use [facility] Prescriptions: - guaifenesin 600 mg Oral tablet extended release 12hr - take 1 tablet by ORAL route every 12 hours; 10 tablet; Refills: 0, Product [facility] Selection Permitted Signatures: Dispatcher [employer] Barbara Rice RN RN hb Holmes, Maurice, MD MD [facility]
--- NOTE | 2021-09-24 02:41 | ER ---
Nurse's Notes [facility] Name: He Schmitz Age: 26 yrs Sex: Male : 1995 Arrival Date: 09/23/2021 Time: 20:29 Bed Treatment Private MD: Diagnosis: Cough-COVID Presentation: 09/23 21:01 Chief complaint: COVID +, c/o persistent cough. Coronavirus screen: At this time, the client does not indicate any symptoms associated with coronavirus-19. Ebola Screen: No symptoms or risks identified at this time. Initial Sepsis Screen: Does the patient meet any 2 criteria? No. Patient's initial sepsis screen is negative. Does the patient have a suspected source of infection? No. Patient's initial sepsis screen is negative. Risk Assessment: Do you want to hurt yourself or someone else? Patient reports no desire to harm self or others. Onset of symptoms was September 23, 2021. 21:01 Method Of Arrival: Ambulatory 21:01 Acuity: NICOLE 4 hb Historical: - Allergies: 21:03 No Known Drug Allergies; hb - Home Meds: 21:03 Flexeril 10 mg Oral tab 1 tab 3 times per day [Active]; hb - PMHx: 21:03 Autism; Anxiety; Gout; Left ventricular hypertrophy; Pneumonia; hb - Immunization history:: Adult Immunizations up to date. - Social history:: Smoking status: Patient denies any tobacco usage or history of. Screenin/17 02:08 Abuse screen: Denies threats or abuse. Denies injuries from another. Nutritional ha1 screening: No deficits noted. Tuberculosis screening: No symptoms or risk factors identified. Fall Risk None identified. Assessment: 02:08 General: Appears in no apparent distress. comfortable, Behavior is calm, cooperative. ha1 Pain: Denies pain. Neuro: No deficits noted. Level of Consciousness is awake, alert, obeys commands, Oriented to person, place, time, situation. Cardiovascular: No deficits noted. Denies chest pain, shortness of breath, Capillary refill < 3 seconds Clubbing of nail beds is absent JVD is absent Patient's skin is warm and dry. Respiratory: Reports cough that is persistent pain with cough Airway is patent Trachea midline Respiratory effort is even, unlabored, Respiratory pattern is regular, symmetrical, Breath sounds are clear bilaterally. GI: No deficits noted. No signs and/or symptoms were reported involving the gastrointestinal system. Abdomen is flat, non-distended. : No deficits noted. No signs and/or symptoms were reported regarding the genitourinary system. EENT: No deficits noted. Throat is clear. Derm: No deficits noted. Skin is intact, is healthy with good turgor, Skin is dry, Skin temperature is warm. Musculoskeletal: No deficits noted. No signs and/or symptoms reported regarding the musculoskeletal system. Circulation, motion, and sensation intact. Range of motion: intact in all extremities. 03:05 Reassessment: Patient and/or family updated on plan of care and expected duration. Pain ha1 level reassessed. Patient is alert, oriented x 3, equal unlabored respirations, skin warm/dry/pink. Vital Signs: 09/23 21:01 BP 156 / 102; Pulse 103; Resp 20; Temp 98.4; Pulse Ox 100% on R/A; Weight 117.93 kg; hb Height 6 ft. 2 in. (187.96 cm); Pain 0/10; 09/24 02:20 BP 121 / 61; Pulse 72; Resp 18 S; Temp 98.1(O); Pulse Ox 100% on R/A; ha1 09/23 21:01 Body Mass Index 33.38 (117.93 kg, 187.96 cm) hb ED Course: 09/23 20:29 Patient arrived in ED. bp1 21:02 Triage completed. hb 21:03 Arm band placed on. hb 09/24 01:30 Nicholas Olivares MD is Attending Physician. 7 01:57 Chest Single View XRAY In Process Unspecified. EDMS 01:57 Mahogany Nagy, LUIS CARLOS is Primary Nurse. ha1 02:08 Patient has correct armband on for positive identification. Bed in low position. Call ha1 light in reach. Side rails up X 1. Client placed on continuous cardiac and pulse oximetry monitoring. NIBP monitoring applied. Door closed. Noise minimized. Warm blanket given. Family accompanied patient. 03:05 No provider procedures requiring assistance completed. ha1 03:05 Patient did not have IV access during this emergency room visit. ha1 Administered Medications: No medications were administered Medication: 03:05 VIS not applicable for this client. ha1 Outcome: 02:39 Discharge ordered by MD. mh7 03:05 Condition: stable ha1 03:05 Discharged to home ambulatory. 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 medication usage, Demonstrated understanding of instructions, follow-up care, medications, Prescriptions given X 1. 03:23 Patient left the ED. ha1 Signatures: Dispatcher [employer] EDMS Barbara Zamora RN RN Lianne Patel Maurice, MD MD 7 Mahogany Nagy RN RN ha1
[2021-09-24 03:29] VITALS: O2SAT 100
[2021-09-24 03:36] VITALS: BP 121/61; TEMP 98.1
--- NOTE | 2021-09-24 11:48 | RAD REPORT ---
EXAM DESCRIPTION: Chest Single View CLINICAL HISTORY: 26 years Male COUGH COMPARISON: Chest x-ray 09/22/2021 FINDINGS: Lung volumes diminished. Cardiac silhouette is enlarged, unchanged. No pneumothorax. No large pleural effusion. No focal consolidation. Osseous structures unchanged. IMPRESSION: 1. No acute cardiopulmonary findings. 2. Unchanged enlarged cardiac silhouette. Electronically signed by: Noel Wong MD 09/24/2021 2:08 AM CDT Due to temporary technical issues with the PACS/Fluency reporting system, reports are being signed by the in house radiologists without review as a courtesy to insure prompt reporting. The interpreting radiologist is fully responsible for the content of the report.
== END 2021-09-24 03:23 | disposition home or self-care (01) ==
LOC: ER 20:28
DX: U07.1 COVID-19 (principal)
CPT/HCPCS: 71045

== ENCOUNTER 2021-09-27 15:02 | Emergency (ER) | payer SELFPAY ==
--- OUTSIDE RECORDS SUMMARY | 2021-09-27 15:13 | XMS REPORT | Continuity of Care Document ---
:1995 Author Organization [facility] t Address [address] [place] [address] Dr. Leroy [address] [place] [id number] Care Team Providers Name Role Phone FERNANDO [...] LARSON [address] 09:38:00 09:38:00 H [id number] [facility] h Program Results This patient has no known results.
[2021-09-27 17:58] LABS: Absolute Lymphocytes (CBC) 1.5 K/uL (0.7-4.9); Hematocrit 41.3 % (39.6-49.0); Lymphocytes % 16.5 % (15.3-44.8); MCV 83.8 fL (80-100); MPV 8.3 fL (7.6-11.3); RBC Red Blood Cell Count 4.93 M/uL (4.33-5.43)
[2021-09-27] MEDS ORDERED: BENZONATATE 100 MG CAP PO ONE (18:02)
[2021-09-27] MEDS ORDERED: KETOROLAC 30 MG/ML INJ ONE (18:03)
[2021-09-27 18:18] LABS: Magnesium 2.5 mg/dL (1.8-2.4); Potassium 3.4 mmol/L (3.5-5.1); Troponin High Sensitivity 3.5 pg/mL (<58.9)
--- NOTE | 2021-09-27 18:57 | RAD REPORT ---
EXAM DESCRIPTION: RAD - Chest Single View - 09/27/2021 6:17 pm CLINICAL HISTORY: CHEST PAIN COMPARISON: Portable 09/24/2021 TECHNIQUE: AP portable chest image was obtained 09/27/2021 6:17 pm . FINDINGS: No focal lung parenchymal process. Interstitial pattern is similar to comparison. Heart and vasculature are normal. No measurable pleural effusion and no pneumothorax. No acute bony abnormality seen. No acute aortic findings suspected. IMPRESSION: No acute cardiopulmonary process. No significant change from comparison study.
--- NOTE | 2021-09-27 19:21 | RAD REPORT ---
EXAM DESCRIPTION: CT - Chest For Pe Angio - 09/27/2021 7:13 pm CLINICAL HISTORY: left side chest pain COMPARISON: Chest For Pe Angio dated 09/22/2021; Chest Single View dated 09/27/2021 TECHNIQUE: Dynamically enhanced 3 mm thick images of the chest were obtained during administration o f approximately 150mL Isovue 370 IV contrast. Coronal and oblique MIP reconstruction images were gene rated and reviewed. Exam utilizes a protocol to evaluate the pulmonary arterial tree. All CT scans are performed using dose optimization technique as appropriate and may include automated exposure control or mA/KV adjustment according to patient size. FINDINGS: No pulmonary emboli are identified. The aorta as imaged shows no acute or suspicious finding. No pericardial thickening or effusion. No infiltrate or mass in the lung parenchyma. No pleural effusion or pleural thickening. No mediastinal or hilar suspicious masses. No chest wall masses or abnormal axillary lymphadenopathy. IMPRESSION: No pulmonary emboli identified. No other significant or suspicious findings.
--- NOTE | 2021-09-27 19:35 | ER ---
Nurse's Notes [facility] Name: He Schmitz Age: 26 yrs Sex: Male : 1995 Arrival Date: 09/27/2021 Time: 15:03 Bed 13 Private MD: Diagnosis: Chest pain, unspecified;SARS-associated coronavirus as the cause of diseases classified elsewhere;Cough Presentation: 09/27 15:44 Chief complaint: Patient states: Pt was diagnosed with covid 8 days ago and has been kb3 seen in this ED for numerous related complaints since. Today, pt presents with left chest wall pain, worse with cough and deep breathing. Coronavirus screen: Vaccine status: Patient reports receiving the 2nd dose of the covid vaccine. Client denies travel out of the [place] in the last 14 days. cough unrelated to allergies, muscle pain. Ebola Screen: Patient negative for fever greater than or equal to 101.5 degrees Fahrenheit, and additional compatible Ebola Virus Disease symptoms Patient denies exposure to infectious person. Patient denies travel to an Ebola-affected area in the 21 days before illness onset. No symptoms or risks identified at this time. Initial Sepsis Screen: Does the patient meet any 2 criteria? No. Patient's initial sepsis screen is negative. Does the patient have a suspected source of infection? Yes: Other: Covid. Risk Assessment: Do you want to hurt yourself or someone else? Patient reports no desire to harm self or others. Onset of symptoms was September 26, 2021. 15:44 Method Of Arrival: Ambulatory 3 15:44 Acuity: NICOLE 4 kb3 17:43 Acuity: NICOLE 3 iw Triage Assessment: 15:47 General: Appears in no apparent distress. unkempt, Behavior is calm, cooperative. Pain: kb3 Complains of pain in anterior aspect of left upper chest Pain does not radiate. Pain currently is 5 out of 10 on a pain scale. Quality of pain is described as heavy, Pain began 2-3 days ago. Historical: - Allergies: 15:47 No Known Allergies; kb3 - Home Meds: 15:47 None [Active]; kb3 - PMHx: 15:47 Anxiety; Autism; Gout; Left ventricular hypertrophy; Pneumonia; kb3 - PSHx: 15:47 None; kb3 - Immunization history:: Adult Immunizations up to date, Client reports receiving the 2nd dose of the Covid vaccine, Last tetanus immunization: up to date. - Social history:: Smoking status: Patient denies any tobacco usage or history of. Screenin:57 Abuse screen: Denies threats or abuse. Nutritional screening: No deficits noted. bm7 Tuberculosis screening: No symptoms or risk factors identified. Fall Risk None identified. Assessment: 17:57 Reassessment: Patient and/or family updated on plan of care and expected duration. Pain bm7 level reassessed. Patient is alert, oriented x 3, equal unlabored respirations, skin warm/dry/pink. 18:30 Reassessment: Patient and/or family updated on plan of care and expected duration. Pain bm7 level reassessed. Patient is alert, oriented x 3, equal unlabored respirations, skin warm/dry/pink. 20:02 Reassessment: Patient appears in no apparent distress at this time. Patient and/or jb4 family updated on plan of care and expected duration. Pain level reassessed. Patient is alert, oriented x 3, equal unlabored respirations, skin warm/dry/pink. Vital Signs: 15:44 BP 136 / 88; Pulse 95; Resp 20; Temp 98.1; Pulse Ox 98% ; Weight 113.4 kg; Height 6 ft. kb3 2 in. (187.96 cm); Pain 5/10; 17:57 BP 113 / 66; Pulse 63; Resp 16; Pulse Ox 100% on R/A; Pain 4/10; bm7 18:44 BP 114 / 74; Pulse 60; Resp 16; Pulse Ox 100% on R/A; bm7 15:44 Body Mass Index 32.10 (113.40 kg, 187.96 cm) kb3 ED Course: 15:03 Patient arrived in ED. am2 15:29 Lonnie Osorio PA is PHCP. cp 15:29 Jennifer Perez MD is Attending Physician. cp 15:47 Triage completed. kb3 15:47 Arm band placed on right wrist. kb3 17:31 Lianne Damico, LUIS CARLOS is Primary Nurse. bm7 17:57 No apparent distress. Resting quietly. Awaiting lab results. bm7 17:57 Patient has correct armband on for positive identification. Placed in gown. Bed in low bm7 position. Call light in reach. Side rails up X 1. Client placed on continuous cardiac and pulse oximetry monitoring. NIBP monitoring applied. panel monitor on. Warm blanket given. 17:57 Initial lab(s) drawn, by me, sent to lab. EKG done, by ED staff, reviewed by Lonnie ANDREWS X-ray(s) taken. Inserted saline lock: 20 gauge in right antecubital area, using aseptic technique. Blood collected. 18:19 XRAY Chest (1 view) In Process Unspecified. EDMS 18:30 No provider procedures requiring assistance completed. Patient maintains SpO2 bm7 saturation greater than 95% on room air. 19:15 CT Chest For PE Angio In Process Unspecified. EDMS 20:02 IV discontinued, intact, bleeding controlled, No redness/swelling at site. Pressure jb4 dressing applied. Administered Medications: 17:57 Drug: Ketorolac 15 mg Route: IVP; Site: right antecubital; bm7 18:23 Follow up: Response: Pain is decreased bm7 17:57 Drug: Tessalon Perle (benzonatate) 200 mg Route: PO; bm7 18:23 Follow up: Response: No adverse reaction bm7 Medication: 17:57 VIS not applicable for this client. bm7 Outcome: 19:34 Discharge ordered by . christopher 20:02 Discharged to home ambulatory. jb4 20:02 Condition: stable 20:02 Discharge instructions given to patient, Instructed on discharge instructions, follow up and referral plans. medication usage, Demonstrated understanding of instructions, follow-up care, medications, Prescriptions given X 2. 20:03 Patient left the ED. jb4 Signatures: Dispatcher [employer] EDNV Shireen Santiago RN RN iw Page, Corey, PA PA cp Bryson, James RN RN jb4 Christy Vora Brittany RN RN bm7 Gabrielle Hagen, RN RN kb3 Corrections: (The following items were deleted from the chart) 15:48 15:47 Home Meds: Flexeril 10 mg Oral tab 1 tab 3 times per day; kb3 kb3
--- NOTE | 2021-09-27 19:35 | EDPHYS ---
Physician Documentation [facility] Name: He Schmitz Age: 26 yrs Sex: Male : 1995 Arrival Date: 09/27/2021 Time: 15:03 Bed 13 Private MD: ED Physician Jennifer Perez HPI: 09/27 17:10 This 26 yrs old Male presents to ER via Ambulatory with complaints of lung pain. cp 17:10 The patient or guardian reports chest pain that is located primarily in the left lower cp chest. 17:10 The pain does not radiate. Associated signs and symptoms: Pertinent positives: cough, cp Pertinent negatives: diaphoresis, lower extremity pain, lower extremity swelling, syncope, vomiting. 17:10 The chest pain is described as a heaviness. Duration: The patient or guardian reports a cp single episode, that is still ongoing. 17:10 Modifying factors: the symptoms are aggravated by cough, deep breath. Severity of pain: cp in the emergency department the pain is unchanged despite home interventions. Historical: - Allergies: 15:47 No Known Allergies; kb3 - Home Meds: 15:47 None [Active]; kb3 - PMHx: 15:47 Anxiety; Autism; Gout; Left ventricular hypertrophy; Pneumonia; kb3 - PSHx: 15:47 None; kb3 - Immunization history:: Adult Immunizations up to date, Client reports receiving the 2nd dose of the Covid vaccine, Last tetanus immunization: up to date. - Social history:: Smoking status: Patient denies any tobacco usage or history of. ROS: 17:15 Constitutional: Negative for body aches, chills, fever, poor PO intake. cp 17:15 Eyes: Negative for injury, pain, redness, and discharge. cp 17:15 ENT: Negative for drainage from ear(s), ear pain, sore throat, difficulty swallowing, difficulty handling secretions. 17:15 Cardiovascular: Positive for chest pain, Negative for edema, palpitations. 17:15 Respiratory: Positive for cough, "sounds productive", Negative for wheezing. 17:15 Abdomen/GI: Negative for abdominal pain, vomiting, diarrhea, constipation. 17:15 Back: Negative for injury or acute deformity, decreased range of motion, radiated pain. 17:15 Neuro: Negative for altered mental status, headache, weakness. 17:15 All other systems are negative. Exam: 17:20 Constitutional: The patient appears in no acute distress, alert, awake, cp non-diaphoretic, non-toxic, well developed, well nourished. 17:20 Head/Face: Normocephalic, atraumatic. cp 17:20 Eyes: Periorbital structures: appear normal, Conjunctiva: normal, no exudate, no injection, Sclera: no appreciated abnormality, Lids and lashes: appear normal, bilaterally. 17:20 ENT: External ear(s): are unremarkable, Nose: is normal, Mouth: Lips: moist, Oral mucosa: moist, Posterior pharynx: Airway: no evidence of obstruction, patent. 17:20 Chest/axilla: Inspection: normal, Palpation: crepitus, is not appreciated, tenderness, that is mild, of the left lower lateral chest. 17:20 Cardiovascular: Rate: normal, Rhythm: regular, Edema: is not appreciated, JVD: is not appreciated. 17:20 Respiratory: the patient does not display signs of respiratory distress, Respirations: normal, no use of accessory muscles, no retractions, labored breathing, is not present, Breath sounds: bronchial sounds, that are mild, are heard diffusely, stridor, is not appreciated, wheezing: is not appreciated. 17:20 Abdomen/GI: Inspection: abdomen appears normal, Palpation: abdomen is soft and non-tender, in all quadrants. 17:20 Back: CVA tenderness, is absent. 17:20 Skin: cellulitis, is not appreciated, no rash present. 17:20 Neuro: Orientation: to person, place \\T\\ time. Mentation: is normal, Motor: moves all fours, strength is normal, Gait: is steady, at a normal pace, without difficulty. Vital Signs: 15:44 BP 136 / 88; Pulse 95; Resp 20; Temp 98.1; Pulse Ox 98% ; Weight 113.4 kg; Height 6 ft. kb3 2 in. (187.96 cm); Pain 5/10; 17:57 BP 113 / 66; Pulse 63; Resp 16; Pulse Ox 100% on R/A; Pain 4/10; bm7 18:44 BP 114 / 74; Pulse 60; Resp 16; Pulse Ox 100% on R/A; bm7 15:44 Body Mass Index 32.10 (113.40 kg, 187.96 cm) kb3 MDM: 16:59 Patient medically screened. cp 19:33 Data reviewed: vital signs, nurses notes, lab test result(s), EKG, radiologic studies, cp CT scan, plain films. 19:33 Differential diagnosis: abnormal EKG, chest wall pain, pericarditis, pleurisy, cp pneumonia, pneumothorax, pulmonary embolus. Test interpretation: by ED physician or midlevel provider: ECG, plain radiologic studies. Counseling: I had a detailed discussion with the patient and/or guardian regarding: the historical points, exam findings, and any diagnostic results supporting the discharge/admit diagnosis, lab results, radiology results, to return to the emergency department if symptoms worsen or persist or if there are any questions or concerns that arise at home. Special discussion: Based on the patient's history, exam, and Dx evaluation, there is no indication for emergent intervention or inpatient Tx. It is understood by the patient/guardian that if the Sx's persist or worsen they need to return immediately for re-evaluation. 09/27 17:04 Order name: Basic Metabolic Panel; Complete Time: 18:20 09/27 19:24 Interpretation: Normal except: K 3.4; BUN 6. 09/27 17:04 Order name: CBC with Diff; Complete Time: 18:09 09/27 18:09 Interpretation: Normal except: WBC 8.90; HGB 13.5; PLT 316; SHREE% 74.7. 09/27 17:04 Order name: D-Dimer; Complete Time: 18:09 09/27 18:09 Interpretation: D-DIMER 1080; Reviewed. 09/27 17:04 Order name: Magnesium; Complete Time: 18:20 cp 09/27 17:04 Order name: Troponin HS; Complete Time: 18:20 cp 09/27 17:04 Order name: XRAY Chest (1 view); Complete Time: 19:23 cp / 17:04 Order name: EKG; Complete Time: 17:05 cp / 17:04 Order name: Cardiac monitoring; Complete Time: 17:57 cp 09/27 17:04 Order name: EKG - Nurse/Tech; Complete Time: 17:57 cp 09/27 17:04 Order name: IV Saline Lock; Complete Time: 17:57 cp 09/27 17:04 Order name: Labs collected and sent; Complete Time: 17:57 cp 09/27 18:51 Order name: CT Chest For PE Angio; Complete Time: 19:23 cp 09/27 19:24 Interpretation: Report reviewed. cp 09/27 17:04 Order name: O2 Per Protocol; Complete Time: 17:57 cp 09/27 17:04 Order name: O2 Sat Monitoring; Complete Time: 17:57 cp Administered Medications: 17:57 Drug: Ketorolac 15 mg Route: IVP; Site: right antecubital; bm7 18:23 Follow up: Response: Pain is decreased bm7 17:57 Drug: Tessalon Perle (benzonatate) 200 mg Route: PO; bm7 18:23 Follow up: Response: No adverse reaction bm7 Disposition: 09/28 08:20 STAFF ATTESTATION STATEMENT: I was immediately available onsite in the emergency sd2 department for consultation in the care of this patient. I did not see or examine this patient. Jennifer Perez MD. Disposition Summary: 09/27/21 19:34 Discharge Ordered Location: Home cp Problem: new cp Symptoms: have improved cp Condition: Stable cp Diagnosis - Chest pain, unspecified cp - SARS-associated coronavirus as the cause of diseases classified elsewhere cp - Cough cp Followup: cp - With: Private Physician - When: 2 - 3 days - Reason: Worsening of condition Discharge Instructions: - Discharge Summary Sheet cp - Nonspecific Chest Pain, Adult cp - Aspirin and Your Heart cp - COVID-19 cp - Things to Know about the COVID-19 Pandemic - [facility] cp - 10 Things You Can Do to Manage Your COVID-19 Symptoms at Home - [facility] cp - COVID-19: Quarantine vs. Isolation - [facility] cp - Prevent the Spread of COVID-19 if You Are Sick - [facility] cp Forms: - Medication Reconciliation Form cp - Thank You Letter cp - Antibiotic Education cp - Prescription Opioid Use cp Prescriptions: - Tessalon Perles 100 mg Oral Capsule - take 2 capsule by ORAL route every 8 hours As needed; 30 capsule; Refills: 0, cp Product Selection Permitted - Diclofenac Sodium 75 mg Oral Tablet Sustained Release - take 1 tablet by ORAL route 2 times per day; 30 tablet; Refills: 0, Product cp Selection Permitted Signatures: Dispatcher [employer] EDOR Page, Lonnie, Lianne Joseph cp, RN RN bm7 Jennifer Perez MD MD sd2 Gabrielle Hagen RN RN kb3 Corrections: (The following items were deleted from the chart) 09/27 15:48 15:47 Home Meds: Flexeril 10 mg Oral tab 1 tab 3 times per day; kb3 kb3
[2021-09-27 22:51] VITALS: TEMP 98.1
[2021-09-27 22:53] VITALS: O2SAT 100
[2021-09-27 22:55] VITALS: BP 114/74
--- NOTE | 2021-09-29 08:11 | EKG ---
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
== END 2021-09-27 20:03 | disposition home or self-care (01) ==
LOC: ER 15:02
DX: R07.89 Other chest pain (principal); U07.1 COVID-19; R05.9 Cough, unspecified; F84.0 Autistic disorder
CPT/HCPCS: 36415; 71045; 71275; 80048; 83735; 84484; 85025; 85379; 93005; 96374; 99285; Q9967